=== PATIENT | male | born 1940 | race Caucasian/White ===

== ENCOUNTER → 2020-06-13 09:27 | Outpatient (BNVA) | payer MEDICARE, SELFPAY | PROVIDERS: PCP Internal Medicine Interventional Cardiology; Referring Provider Internal Medicine Interventional Cardiology; Visit Provider Internal Medicine Cardiovascular Disease | DX: I44.0 Atrioventricular block, first degree (principal); I44.4 Left anterior fascicular block; I10 Essential (primary) hypertension; C91.10 Chronic lymphocytic leukemia of B-cell type not having achieved remission | CPT/HCPCS: 99214 ==

== ENCOUNTER → 2020-10-17 08:36 | Outpatient (BNVA) | payer MEDICARE, SELFPAY | PROVIDERS: PCP Internal Medicine Interventional Cardiology; Visit Provider Internal Medicine Cardiovascular Disease | DX: I44.4 Left anterior fascicular block (principal); I44.0 Atrioventricular block, first degree; I10 Essential (primary) hypertension | CPT/HCPCS: 93005; 99212 ==

== ENCOUNTER 2021-02-15 13:45 | Outpatient (REF) | payer MEDICARE, SELFPAY ==
--- NOTE | ~2021-02-15 | US_ITS ---
EXAMINATION: US RETROPERITONEAL LIMITED (RENAL ONLY) CLINICAL INFORMATION: Worsening renal function. COMPARISON: Previous renal ultrasound 02/10/[address] of the abdomen and pelvis February 2020 TECHNIQUE: Grayscale and color imaging of the kidneys FINDINGS: RIGHT KIDNEY: 11.9 x 5.8 x 5.4 cm (SAG x AP x TRV). The kidney is normal in size, contour, and echogenicity. There is renal cortical thinning. No calculi or focal parenchymal lesions. No hydronephrosis. LEFT KIDNEY: 12.7 x 4.9 x 4.9 cm (SAG x AP x TRV). The kidney is normal in size, contour, and echogenicity. There is renal cortical thinning. There are 2 cysts measuring 1.4 x 0.9 x 1.1 cm and 0.9 x 0.7 x 0.9 cm in the lower pole. No calculi. No hydronephrosis. The spleen is enlarged. The spleen measures 21 cm in length. US/US renal BI IMPRESSION: Bilateral renal cortical thinning. No hydronephrosis. Small left renal cysts. Enlarged spleen.
== END 2021-02-15 13:46 | disposition home or self-care (01) ==
LOC: HO.US 13:45
PROVIDERS: Visit Provider Internal Medicine
DX: N17.9 Acute kidney failure, unspecified (principal)
CPT/HCPCS: 76775

== ENCOUNTER 2021-02-17 14:05 | Inpatient (IN) | payer MEDICARE, SELFPAY ==
[2021-02-17 14:32] VITALS: BP 114/43; PULSE 54; RESP 16; TEMP 36.6; O2SAT 97; BMI 20.7
--- NOTE | 2021-02-17 15:46 | ED.MALEGU ---
HPI - Male Genitourinary General Chief complaint: Urogenital-Male Stated complaint: urinary retention, worsening renal function Time Seen by Provider: 02/17/21 15:43 Source: patient and other (Dr. Hickman) Mode of arrival: ambulatory Limitations: no limitations History of Present Illness HPI Narrative: 80-year-old male with history of CLL, recently started on ibrutinib about a week ago, now with worsening renal function. the patient was seen today by his senior cobol developer, Dr. Hickman and the patient was sent to the emergency department for urinary retention and worsening renal function. Information below is obtained from 's oncology progress note done today. Serial creatinine: 11/06: 1.50. 01/24 and 02/08 : 1.93. 02/15: 2.3. 7/: 2.17. On 02/15 he was straight cathed with 1 L of urine. Renal ultrasound from 02/15: Bilateral renal cortical thinning. No hydronephrosis. Small left renal cysts. Enlarged spleen. Today his post void residual was 999. He could have underlying enlarged prostate causing urinary retention. Worsening renal function: Could be prerenal, renal versus post renal. PLAN: Will place a Bashir catheter. He will be referred to the emergency room to be admitted for further evaluation. He will have a renal consult. Urology will be consulted. I discussed the case with the ER physician who has graciously accepted him. The patient told me that his symptoms started approximately 2 weeks prior. He states that he noted that his urinary stream was weak and that he was not emptying his bladder. The symptoms started prior to the patient's starting his new biologic agent, ibrutinib. he denied abdominal pain, dysuria. He states he has had increased fatigue. He states he has been feeling colder than usual. He states that he has been sleeping more than usual as well. Related Data Home Medications Medication Instructions Recorded Confirmed allopurinol 300 mg PO BID 06/20/20 06/20/20 atorvastatin 40 mg PO DAILY 06/20/20 06/20/20 cholecalciferol (vitamin D3) 50 mcg PO DAILY 06/20/20 06/20/20 [Vitamin D3] ferrous sulfate 325 mg PO DAILY 06/20/20 06/20/20 insulin aspart U-100 [Novolog 1 sliding scale dose SUBCUT 06/20/20 06/20/20 U-100 Insulin aspart] USEASDIRECTD levothyroxine 15 mcg PO DAILY 06/20/20 06/20/20 omeprazole 20 mg PO DAILY 06/20/20 06/20/20 valsartan 320 mg PO DAILY 06/20/20 06/20/20 Previous Rx's Medication Instructions Recorded Imbruvica 420 mg PO DAILY #90 cap 01/30/21 Allergies Allergy/AdvReac Type Severity Reaction Status Date / Time indomethacin [INDOMETHACIN] Allergy Unknown BLOODY Verified 06/13/20 10:17 STOOLS- TOLD NEVER TO TAKE Review of Systems Review of Systems: Yes all other systems are reviewed and are negative [facility] Past Medical History [facility] Narrative: Social history: He denies tobacco, alcohol and drug use. Medical History Chronic renal insufficiency CLL (chronic lymphocytic leukemia) Diabetes mellitus First degree AV block GERD (gastroesophageal reflux disease) Gout Hyperlipidemia Hypertension Hypothyroid Left anterior fascicular block Pulmonary nodule Skin cancer Thyroid cancer Surgical History H/O thyroidectomy History of knee replacement procedure of left knee (~1994) History of rickets Family History Family History Father No problems noted. Mother Breast cancer DVT (deep venous thrombosis) Brother Intestinal cancer Sister Breast cancer Sister Breast cancer Social History Social History Alcohol intake: never Patient Tobacco Use Status: Never used Tobacco Advance Directives: Yes Advance Directives Information Provided: Yes Advance Directives on File: No Physical Exam Vital Signs: Vital Signs: Last Vital Signs Temp 97.9 F 02/17/21 14:32 Pulse 54 02/17/21 14:32 Resp 16 02/17/21 14:32 BP 114/43 L 02/17/21 14:32 Pulse Ox 97 02/17/21 14:32 Body Mass Index 20.7 Const: Other: Very pleasant and cooperative male, he does not appear to be in distress. HENMT: Head: Yes normal to inspection, Yes normocephalic and Yes atraumatic Ears: external ears normal General nose exam: Normal external nose present Face and sinus: Yes normal facial exam Mouth: Normal oral and palatal mucosa present Throat: Yes posterior oropharynx normal Eyes: Periorbital: periorbital findings normal Eyelids: Yes eyelids normal Conjunctivae: conjunctivae normal Sclerae: sclerae normal Corneas: corneas normal Pupils: Equal, round and reactive pupils present Direct Ophthalmoscopy: normal light reflex Neck: Neck: Yes full ROM, Yes no lymphadenopathy, Yes no meningeal signs, Yes trachea midline and Yes supple Chest: Chest palpation & inspection: normal inspection of the chest and normal palpation of entire chest wall Resp: Effort & Inspection: normal respiratory effort and able to speak in complete sentences Auscultation: clear to auscultation bilaterally Cardio: Rate: regular rate Rhythm: regular rhythm Heart sounds: S1 normal heart sound present, S2 normal heart sound present and no murmurs GI: Inspection: Yes normal to inspection Palpation (GI): Soft to palpation, nontender, no guarding, not rigid and No hepatosplenomegaly present : General: Yes no CVA tenderness Back/Spine/Pelvis: Back: no CVA tenderness Cervical Spine: normal cervical lordosis Thoracic/Lumbar Spine: thoracic and lumbar spine normal to inspection Skin: Lesions: no lesions Rashes: no rashes Wounds: no wounds Neuro: General: no meningeal signs Cranial nerves: Yes CN's II-XII intact bilaterally and Yes Equal, round and reactive pupils present Cognition (Neuro): normal cognition Motor exam (neuro): 5/5 motor strength present throughout Extrem: General: Yes normal to inspection and Yes full ROM Psych: Appearance: well kempt Mental Status: mental status grossly normal Speech and movement: Normal speech and movement present Affect: normal affect Attitude: cooperative Thought process: Normal thought process present Thought content: Normal thought content present Course Course Course Narrative: 80-year-old male with a history of CLL who was referred to the emergency department by his senior cobol developer, Dr. Hickman for urinary retention and worsening renal failure. The patient's symptoms started at least 3 days prior to the patien starting the newbiologic agent for his CLL. Patient's laboratory evaluation did reveal an elevated creatinine of 2.17 above his baseline of 1.50 hi 11/06/2020. The patient did have urinary retention and he had a Bashir catheter placed in the senior cobol developer's office. I will check a urinalysis on the patient's urine. The patient will need to be admitted for further evaluation, urology and nephrology consult. I will discuss the patient's presentation with the covering hospitalist. Discharge Plan Discharge Prescriptions: No Action atorvastatin 40 mg Tablet 40 mg PO DAILY RF: 0 ferrous sulfate 325 mg (65 mg iron) Tablet 325 mg PO DAILY RF: 0 valsartan 320 mg Tablet 320 mg PO DAILY RF: 0 allopurinol 300 mg Tablet 300 mg PO BID RF: 0 omeprazole 20 mg Tablet,Delayed Release (Dr/Ec) 20 mg PO DAILY RF: 0 cholecalciferol (vitamin D3) [Vitamin D3] 50 mcg (2,000 unit) Tablet 50 mcg PO DAILY RF: 0 levothyroxine 13 mcg/mL Solution 15 mcg PO DAILY RF: 0 insulin aspart U-100 [Novolog U-100 Insulin aspart] 100 unit/mL Solution 1 sliding scale dose SUBCUT USEASDIRECTD RF: 0 Imbruvica 140 mg Capsule 420 mg PO DAILY Qty: 90 RF: 3
[2021-02-17 17:10] LABS: Glucose Urine UA >=1000 MG/DL (NEG); Leukocyte Esterase Urine NEG (NEG); Nitrite Urine NEG (NEG); PH 5.5 (5.0-8.0); Specific Gravity - Urine 1.015 (1.005-1.025); Urine Blood 2+ (NEG); Urine Ketones NEG (NEG); Urine Protein NEG (NEG-TRACE)
[2021-02-17 17:11] LABS: Appearance Urine CLEAR; Color Urine YELLOW
[2021-02-17 17:20] LABS: Mucus Urine TRACE /LPF; WBC Urine 0-2 /HPF (0-4)
--- NOTE | 2021-02-17 18:29 | PHA.MEDREC ---
Pharmacy Consult ? Medication Reconciliation Pharmacy has completed the medication reconciliation.
[2021-02-17 18:35] VITALS: BP 108/42; PULSE 52; RESP 18; TEMP 36.4; O2SAT 97
[2021-02-17 18:50] LABS: Hematocrit 26.8 % (42-52); Hemoglobin 8.3 g/dl (14.0-18.0); Mean Corpuscular Hemoglobin 32.7 pg (27.0-33.0); Mean Corpuscular Volume 105.5 fL (80-98); Red Blood Count 2.54 X10*6/uL (4.60-5.80); Red Cell Distribution Width 13.2 % (11.0-16.0)
[2021-02-17 18:53] LABS: Platelet Count 57 X10*3/uL (160-400); WBC ABN SCTR FOR CBC 1
--- NOTE | 2021-02-17 19:22 | PC.NURSE ---
nurse to nurse report given to Jeff WALTON
[2021-02-17 19:24] LABS: Anion Gap 13 (12-20); Blood Urea Nitrogen 49 mg/dL (9-16); Calcium 8.5 mg/dL (8.4-10.2); Carbon Dioxide 17 mmol/L (22-29); Chloride 115 mmol/L (96-108); Estimated Glomerular Filt Rate 33; Glucose Random 157 mg/dL (60-115); Potassium 5.2 mmol/L (3.3-5.1); Sodium 140 mmol/L (135-145)
[2021-02-17 19:44] VITALS: BP 128/53; PULSE 54; RESP 17; TEMP 36.1; O2SAT 97
[2021-02-17 19:53] LABS: White Blood Count 88.1 X10*3/uL (4.8-10.8)
[2021-02-17 20:02] LABS: Band Neutrophils Percent 0 % (3-5); Lymphocytes Absolute Manual 87.2 X10*3/uL (0.6-4.8); Lymphocytes Percent Manual 99 % (20-40); Neutrophils Absolute Manual 0.9 X10*3/uL (2.2-7.9); Neutrophils Percent Manual 1 % (45-73)
[2021-02-17 20:04] LABS: Macrocytosis 1+ (5-14) /OIF; Ovalocytes 2+ (15-30) /OIF; Platelet Estimate DECREASED (NORMAL); Platelet Morphology Comment NORMAL; RBC Morphology NOTED; Stomatocytes 1+ (5-14) /OIF
[2021-02-17 20:05] LABS: Smudge Cells PRESENT
--- NOTE | 2021-02-17 20:06 | HP_ITS ---
DATE OF SERVICE: 02/17/2021 CHIEF COMPLAINT: Urinary retention and generalized weakness. HISTORY OF PRESENTING ILLNESS: This is a very pleasant 80-year-old gentleman with history of CLL, diagnosed in 2016, currently being followed at [facility]cology Clinic. Today, the patient went for a routine visit where he complained of generalized weakness and also complained of incomplete emptying of the bladder for the last 2-1/2 weeks. He denies any associated urinary burning, urgency, or frequency. Therefore, Bashir catheter was placed in Oncology Clinic and 1 L of fluid was drained. The patient was noted to have worsening renal function, although creatinine did improve from February 15 of 2.3 to 2.17 today. Therefore, patient was referred to [facility] for further evaluation and treatment of urinary retention with worsening renal function. The patient denies any prior history of chronic kidney disease, although seems to have chronic kidney disease stage 3 from last year. At present, patient denies any fever or chills. He has been started on ibrutinib 9 days ago for CLL. Otherwise, he has been on losartan for more than 20 years. He denies any associated nausea, vomiting, diarrhea. PAST MEDICAL HISTORY: Significant for, 1. Chronic lymphocytic leukemia. 2. History of diabetes mellitus. 3. History of GERD. 4. History of gout. 5. History of hyperlipidemia. 6. History of hypertension. 7. History of hypothyroidism. 8. History of pulmonary nodule. 9. History of left anterior fascicular block. 10. History of first-degree AV block. 11. History of skin cancer. 12. History of thyroid cancer. PAST SURGICAL HISTORY: 1. He is status post thyroidectomy. 2. Status post left knee replacement surgery. FAMILY HISTORY: Father is . Mother is , she had breast cancer and DVT. Sister has breast cancer and 1 brother has intestinal cancer. SOCIAL HISTORY: The patient lives with . Denies history of smoking or alcohol use. He walks without assistive device, but lately he has started using cane due to weakness. 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 CVS: He denies any chest pain or palpitation. RESPIRATORY: He denies any cough, sputum production, or shortness of breath. GENERAL: He complains of generalized weakness, tiredness, previously would not get tired walking 100 feet, now up to 10 feet feels tired. ALLERGIES: HE IS ALLERGIC TO INDOMETHACIN THAT CAUSES BLOODY STOOL. HOME MEDICATIONS: He is on allopurinol 300 b.i.d., Lipitor 40 mg at bedtime, vitamin D3 of 50 mcg daily, ferrous sulfate 325 b.i.d., Imbruvica 420 mg capsule daily, NovoLog insulin twice daily, levothyroxine 175 mcg daily, meclizine 12.5 mg at bedtime as needed, metoprolol 12.5 daily, omeprazole 20 b.i.d., and valsartan 160 daily. PHYSICAL EXAMINATION: GENERAL: The patient is resting comfortably, does not appear to be in acute distress. VITAL SIGNS: BP 108/42, pulse of 52, respiratory rate 18, temperature of 97.5, O2 saturation 97 on room air. HEENT: Anicteric sclerae. NECK: Supple. No increased JVD. LUNGS: Clear to auscultation bilaterally. HEART: Regular rate and rhythm with a systolic murmur. ABDOMEN: Obese, soft, nontender. Bowel sounds are audible. EXTREMITIES: He has bilateral pitting edema to both legs. NEUROLOGIC: Nonfocal. PSYCH: Appropriate affect. LABORATORY DATA: Sodium 138, BUN 56, creatinine of 2.17, random glucose 136. WBC 99.4, hematocrit of 29, MCV 105, and a platelet count of 64,000. ASSESSMENT AND PLAN: 80-year-old gentleman with history of chronic lymphocytic leukemia, recently started on ibrutinib, presented to [facility] from Oncology due to inability to empty bladder for 2-1/2 weeks and worsening renal function. 1. Acute on chronic kidney disease stage 3. The patient will be admitted to medical floor. We will continue Bashir catheter. We will hold off on IV fluids since the patient seems to have fluid overload with worsening leg swelling. We will avoid nephrotoxins. We will decrease dose of allopurinol to 100 mg daily. Obtain Urology as well as renal consult. Follow BMP at a.m. Question patient has benign prostate hypertrophy. A renal ultrasound did not show hydronephrosis or obstructive calculi. The patient noted to have bilateral renal cortical thinning. 2. History of hypertension. Continue home medications. BP is soft. We will follow blood pressure closely. 3. Diabetes mellitus. Recommend diabetic diet. Home insulin. Follow blood sugars closely. 4. History of hypothyroidism. Continue levothyroxine. 5. Chronic lymphocytic leukemia. We will continue Imbruvica. The patient has been asked to bring the medication from home. We will continue allopurinol renally dosed. The patient has thrombocytopenia with multiple bruises and petechia. We will continue to follow CBC closely. 6. Hyperlipidemia. Continue Lipitor. 7. Code status, the patient wishes to be DNR. MD ANIKET Cleaning/RAMON / [id number]
[2021-02-17 20:33] LABS: Glucose, Whole Blood 141 mg/dL (60-115)
[2021-02-17] MEDS: Enoxaparin Sodium 30 MG/0.3 ML SYRINGE SUBCUT (20:52)
[2021-02-17] MEDS: 0.9 % Sodium Chloride Flush 3 ML SYRINGE IVFLUSH (23:36)
[2021-02-17 23:38] VITALS: BP 107/49; PULSE 57; RESP 18; TEMP 36.4; O2SAT 96
[2021-02-18 03:58] VITALS: BP 124/52; PULSE 61; RESP 18; TEMP 36.5; O2SAT 96
[2021-02-18 06:53] LABS: Hematocrit 27.2 % (42-52); Hemoglobin 8.5 g/dl (14.0-18.0); Mean Corpuscular HGB Conc 31.3 g/dl (31.0-36.0); Mean Corpuscular Hemoglobin 32.9 pg (27.0-33.0); Mean Corpuscular Volume 105.4 fL (80-98); Mean Platelet Volume 12.6 fL (9.4-12.4); Red Blood Count 2.58 X10*6/uL (4.60-5.80); Red Cell Distribution Width 13.3 % (11.0-16.0)
[2021-02-18 07:16] LABS: Platelet Count 62 X10*3/uL (160-400)
[2021-02-18 07:17] LABS: White Blood Count 81.5 X10*3/uL (4.8-10.8)
[2021-02-18 07:18] VITALS: BP 128/52; PULSE 55; TEMP 35.6; O2SAT 97
[2021-02-18 07:21] LABS: Anion Gap 14 (12-20); Blood Urea Nitrogen 45 mg/dL (9-16); Calcium 8.4 mg/dL (8.4-10.2); Carbon Dioxide 16 mmol/L (22-29); Chloride 114 mmol/L (96-108); Creatinine Clr Calc Pharmacy 32.5; Estimated Glomerular Filt Rate 43; Glucose Random 120 mg/dL (60-115); Potassium 4.5 mmol/L (3.3-5.1); Sodium 139 mmol/L (135-145)
[2021-02-18 07:41] LABS: Glucose, Whole Blood 114 mg/dL (60-115)
[2021-02-18 08:00] VITALS: RESP 20
--- NOTE | 2021-02-18 09:16 | MHC.CM.PN ---
IMM 02/18/21 MALE 80 DX URINE RETENTION LIVES WITH FAMILY. HE USES A CANE PRN BUT; HE IS INDEPENDENT WITH ADLS AND DRIVES. [facility] HOME NO SERVICES SELF TRANSPORT. COPY OF HCP REQUESTED. CM WILL FOLLOW TO ASSESS FOR A CHANGE IN DISCHARGE NEEDS.
[2021-02-18] MEDS: 0.9 % Sodium Chloride Flush 3 ML SYRINGE IVFLUSH (10:06)
[2021-02-18] MEDS: allopurinoL 100 MG TABLET PO (10:06)
[2021-02-18 11:19] LABS: Glucose, Whole Blood 148 mg/dL (60-115)
[2021-02-18 12:00] VITALS: BP 108/47; PULSE 52; RESP 18; TEMP 36.4; O2SAT 95
--- NOTE | 2021-02-18 12:42 | PM.UROCN ---
History of Present Illness Consult details Consult date: 02/18/21 Narrative: Nathan is a pleasant male. Admitted via oncology clinic yesterday Had been found to have urinary retention with 1 L in his bladder. Bashir catheter placed. Initial creatinine 2.4 suggestive of acute on chronic renal insult. Baseline creatinine 1.5. With catheter creatinine is fallen from 2.4-1.6 in 48 hours. Using states that he has had difficulty with urination for approximately 14 days prior to admission. Has noticed stream has become much weaker. He felt he was not completely emptying. Has not been on prostate medications previously or diagnosed with prostate condition. Baseline medical condition includes CLL with insulin-dependent diabetes. Of note urinalysis has showed glucose of 1000. point of care glucose admission was approximately 150. Would suggest initiation of combination therapy with finasteride and alpha-denise. Catheter should stay for 7 days to allow full resolution of renal insult. Can be seen in the office for voiding trial. Review of Systems Constitutional: Constitutional: Denies chills and Denies fever(s) Cardiovascular: Cardiovascular: Reports no additional cardiovascular complaints and Denies syncope Respiratory: Respiratory: Denies cough Gastrointestinal: Gastrointestinal: Denies abdominal pain and Denies heartburn Genitourinary: Genitourinary: Reports as per HPI and Denies change in libido Neurologic: Denies syncope Psychiatric: Psychiatric: Denies change in libido Endocrine: Endocrine: Denies change in libido [facility] Past Medical History Medical History (Updated 02/18/21 @ 12:40 by Olivier Jenkins MD) Chronic renal insufficiency CLL (chronic lymphocytic leukemia) Diabetes mellitus First degree AV block GERD (gastroesophageal reflux disease) Gout Hyperlipidemia Hypertension Hypothyroid Left anterior fascicular block Pulmonary nodule Skin cancer Thyroid cancer Family History Family History Father No problems noted. Mother Breast cancer DVT (deep venous thrombosis) Brother Intestinal cancer Sister Breast cancer Sister Breast cancer Surgical History Surgical History H/O thyroidectomy History of knee replacement procedure of left knee (~1994) History of rickets Social History Social History Household Members: Spouse and Children Housing: House Alcohol intake: never Patient Tobacco Use Status: Never used Tobacco Use of substances other than those prescribed or required for medical reasons: No Currently Displaying Signs/Symptoms of Drug Intoxication Withdrawal: No Have you been hit, kicked, punched, or otherwise hurt by someone within the past year? If so, by whom?: No Do you feel safe in your current relationship?: Yes Is there a partner from a previous relationship who is making you feel unsafe now?: No Are you made to feel afraid or neglected: No Advance Directives: Yes Advance Directives Information Provided: Yes Advance Directives on File: No Advance Directives Date on File: 02/17/21 Do you have thoughts of harming others: None Do you have a plan to hurt others: No Plan Recently lost weight without trying: No How much weight loss: Not applicable Eating poorly because of decreased appetite: No Nutrition screen score: 0 Nutrition Risks: No Nutritional Risk Poor oral hygiene: No service: Yes Current occupational status: retired Meds Allergies Allergy/AdvReac Type Severity Reaction Status Date / Time indomethacin [INDOMETHACIN] Allergy Unknown BLOODY Verified 02/18/21 11:19 STOOLS- TOLD NEVER TO TAKE Active Medications: Current Medications Generic Name Dose Route Start Last Admin Trade Name Freq PRN Reason Stop Dose Admin Acetaminophen 650 mg 02/17/21 19:22 Acetaminophen 325 Mg Tablet PO Q6H PRN Pain, Mild (Pain Scale 1-3) Allopurinol 100 mg 02/18/21 09:00 02/18/21 10:06 Allopurinol 100 Mg Tablet PO 100 mg DAILY LOU Administration Docusate Sodium 100 mg 02/17/21 19:22 Docusate Sodium 100 Mg Capsule PO DAILY PRN Constipation Enoxaparin Sodium 30 mg 02/17/21 19:30 02/17/21 20:52 Enoxaparin Sodium 30 Mg/0.3 Ml Syringe SUBCUT 30 mg Q24H LOU Administration Insulin Human Lispro 0 unit 02/17/21 21:00 02/18/21 11:20 Insulin Lispro 100 Unit/Ml 3 Ml Vial SUBCUT Not Given QIDACHS [facility] Protocol Ondansetron HCl 4 mg 02/17/21 19:22 Ondansetron Hcl 4 Mg/2 Ml Vial IVPUSH Q8H PRN Nausea and Vomiting Pharmacy Consult 1 each 02/17/21 17:37 Consult Rx Perform Med Rec MISCELLANE ONCE PRN Consult order Sodium Chloride 3 ml 02/18/21 00:00 02/18/21 10:06 0.9 % Sodium Chloride Flush 3 Ml Syringe IVFLUSH 3 ml QSHIFT [facility] Administration Tamsulosin HCl 0.4 mg 02/18/21 21:00 Tamsulosin Hcl 0.4 Mg Capsule PO BEDTIME [facility] Home Medications Medication Instructions Recorded Confirmed Last Taken Type allopurinol 300 mg PO DAILY 06/20/20 02/17/21 Unknown History cholecalciferol (vitamin D3) 50 mcg PO DAILY 06/20/20 02/17/21 Unknown History [Vitamin D3] ferrous sulfate 325 mg PO BID 06/20/20 02/17/21 Unknown History omeprazole 20 mg PO BID 06/20/20 02/17/21 Unknown History atorvastatin 40 mg PO BEDTIME 02/17/21 02/17/21 Unknown History empagliflozin 12.5 mg PO DAILY 02/17/21 02/17/21 Unknown History insulin aspart U-100 [Novolog 5 unit SUBCUT DAILY@1200 02/17/21 02/17/21 Unknown History U-100 Insulin aspart] insulin aspart U-100 [Novolog 11 unit SUBCUT BID@0800,1700 02/17/21 02/17/21 Unknown History U-100 Insulin aspart] insulin glargine [Lantus U-100 11 unit SUBCUT BID 02/17/21 02/17/21 Unknown History Insulin] levothyroxine 175 mcg PO DAILY 02/17/21 02/17/21 Unknown History meclizine 12.5 mg PO BEDTIME PRN 02/17/21 02/17/21 Unknown History metoprolol succinate [Toprol XL] 12.5 mg PO DAILY 02/17/21 02/17/21 Unknown History valsartan 160 mg PO DAILY 02/17/21 02/17/21 Unknown History Physical Exam Vital Signs: Vital Signs: Last Vital Signs Temp 97.5 F 02/18/21 12:00 Pulse 52 02/18/21 12:00 Resp 18 02/18/21 12:00 BP 108/47 L 02/18/21 12:00 Pulse Ox 95 02/18/21 12:00 Body Mass Index 20.7 Const: General: cooperative, healthy appearing, comfortable and no acute distress Orientation/consciousness: patient oriented x3 HENMT: Face and sinus: Yes normal facial exam Mouth: moist mucous membranes Neck: Neck: Yes normal visual inspection, Yes full ROM and Yes trachea midline Chest: Chest palpation & inspection: normal inspection of the chest Resp: Effort & Inspection: normal respiratory effort, able to speak in complete sentences and no respiratory distress GI: Inspection: Yes normal to inspection Back/Spine/Pelvis: Cervical Spine: normal cervical lordosis Thoracic/Lumbar Spine: thoracic and lumbar spine normal to inspection Skin: General skin exam: no rashes or lesions noted Neuro: General: patient oriented x3, gait normal, tone normal and moves all extremities Extrem: General: Yes normal to inspection and Yes capillary refill normal Results Labs Result diagrams: 02/18/21 05:58 02/18/21 05:58 Labs: Abnormal lab results 02/17/21 02/17/21 02/17/21 Range/Units 17:01 18:42 18:42 WBC 88.1 H* (4.8-10.8) X10*3/uL RBC 2.54 L (4.60-5.80) X10*6/uL Hgb 8.3 L (14.0-18.0) g/dl Hct 26.8 L (42-52) % MCV 105.5 H (80-98) fL Plt Count 57 L (160-400) X10*3/uL MPV (9.4-12.4) fL Neutrophils % (Manual) 1 L (45-73) % Band Neutrophils % 0 L (3-5) % Lymphocytes % (Manual) 99 H (20-40) % Abs Neuts (Manual) 0.9 L (2.2-7.9) X10*3/uL Lymphocytes # (Manual) 87.2 H (0.6-4.8) X10*3/uL Potassium 5.2 H (3.3-5.1) mmol/L Chloride 115 H (96-108) mmol/L Carbon Dioxide 17 L (22-29) mmol/L BUN 49 H (9-16) mg/dL Creatinine 1.96 H (0.5-1.4) mg/dL POC Glucose (60-115) mg/dL Random Glucose 157 H (60-115) mg/dL Urine Glucose (UA) >=1000 H (NEG) MG/DL Urine Blood 2+ H (NEG) Urine RBC 10-14 H (0) /HPF 02/17/21 02/18/21 02/18/21 Range/Units 20:22 05:58 05:58 WBC 81.5 H* (4.8-10.8) X10*3/uL RBC 2.58 L (4.60-5.80) X10*6/uL Hgb 8.5 L (14.0-18.0) g/dl Hct 27.2 L (42-52) % MCV 105.4 H (80-98) fL Plt Count 62 L (160-400) X10*3/uL MPV 12.6 H (9.4-12.4) fL Neutrophils % (Manual) (45-73) % Band Neutrophils % (3-5) % Lymphocytes % (Manual) (20-40) % Abs Neuts (Manual) (2.2-7.9) X10*3/uL Lymphocytes # (Manual) (0.6-4.8) X10*3/uL Potassium (3.3-5.1) mmol/L Chloride 114 H (96-108) mmol/L Carbon Dioxide 16 L (22-29) mmol/L BUN 45 H (9-16) mg/dL Creatinine 1.57 H (0.5-1.4) mg/dL POC Glucose 141 H (60-115) mg/dL Random Glucose 120 H (60-115) mg/dL Urine Glucose (UA) (NEG) MG/DL Urine Blood (NEG) Urine RBC (0) /HPF 02/18/21 Range/Units 11:05 WBC (4.8-10.8) X10*3/uL RBC (4.60-5.80) X10*6/uL Hgb (14.0-18.0) g/dl Hct (42-52) % MCV (80-98) fL Plt Count (160-400) X10*3/uL MPV (9.4-12.4) fL Neutrophils % (Manual) (45-73) % Band Neutrophils % (3-5) % Lymphocytes % (Manual) (20-40) % Abs Neuts (Manual) (2.2-7.9) X10*3/uL Lymphocytes # (Manual) (0.6-4.8) X10*3/uL Potassium (3.3-5.1) mmol/L Chloride (96-108) mmol/L Carbon Dioxide (22-29) mmol/L BUN (9-16) mg/dL Creatinine (0.5-1.4) mg/dL POC Glucose 148 H (60-115) mg/dL Random Glucose (60-115) mg/dL Urine Glucose (UA) (NEG) MG/DL Urine Blood (NEG) Urine RBC (0) /HPF Short CBC 02/17/21 02/18/21 Range/Units 18:42 05:58 WBC 88.1 H* 81.5 H* (4.8-10.8) X10*3/uL Hgb 8.3 L 8.5 L (14.0-18.0) g/dl Hct 26.8 L 27.2 L (42-52) % Plt Count 57 L 62 L (160-400) X10*3/uL BMP 02/17/21 02/18/21 18:42 05:58 Sodium 140 139 Potassium 5.2 H 4.5 Chloride 115 H 114 H Carbon Dioxide 17 L 16 L BUN 49 H 45 H Creatinine 1.96 H 1.57 H Calcium 8.5 8.4 Urine 02/17/21 Range/Units 17:01 Urine Color YELLOW Urine Appearance CLEAR Urine pH 5.5 (5.0-8.0) Ur Specific [place] 1.015 (1.005-1.025) Urine Protein NEG (NEG-TRACE) MG/DL Urine Glucose (UA) >=1000 H (NEG) MG/DL All other labs normal. Assessment and Plan (1) Nocturia more than twice per night: Status: Acute (2) Diabetes mellitus: Status: Acute (3) Urinary retention with incomplete bladder emptying: Status: Acute initiation of combination therapy with alpha-denise and finasteride Catheter should remain while stay in hospital. Can be seen in office late next week for voiding trial Procedures Date of Service Date of Service: 02/18/21
[2021-02-18] MEDS: Finasteride 5 MG TABLET PO (13:00)
--- NOTE | 2021-02-18 13:26 | PM.DS ---
DS: Providers Provider Date of Service: 02/18/21 <BREANNA Jefferson - Last Filed: 02/18/21 13:42> Date of admission: 02/17/21 17:35 <BREANNA Jefferson - Last Filed: 02/18/21 13:42> Primary care physician: Faraz Carrillo MD <BREANNA Jefferson - Last Filed: 02/18/21 13:42> Consults: 02/17/21 19:22 Consult to Urology Routine Consulting Provider: Olivier Jenkins Reason for consultation: urinary retention Has provider been notified: No <BREANNA Jefferson - Last Filed: 02/18/21 13:42> DS: Diagnosis Discharge Diagnosis (1) Acute kidney injury: Status: Acute <BREANNA Jefferson - Last Filed: 02/18/21 13:42> (2) Urinary retention with incomplete bladder emptying: Status: Acute <BREANNA Jefferson - Last Filed: 02/18/21 13:42> (3) Nocturia more than twice per night: Status: Acute <BREANNA Jefferson - Last Filed: 02/18/21 13:42> (4) Diabetes mellitus: Status: Acute <BREANNA Jefferson - Last Filed: 02/18/21 13:42> (5) Hypertension: Status: Acute <BREANNA Jefferson - Last Filed: 02/18/21 13:42> DS: Medications Discharge Medications Home Medications: Home Medications Medication Instructions Recorded Confirmed allopurinol 300 mg PO DAILY 06/20/20 02/17/21 cholecalciferol (vitamin D3) 50 mcg PO DAILY 06/20/20 02/17/21 [Vitamin D3] ferrous sulfate 325 mg PO BID 06/20/20 02/17/21 omeprazole 20 mg PO BID 06/20/20 02/17/21 atorvastatin 40 mg PO BEDTIME 02/17/21 02/17/21 empagliflozin 12.5 mg PO DAILY 02/17/21 02/17/21 insulin aspart U-100 [Novolog 5 unit SUBCUT DAILY@1200 02/17/21 02/17/21 U-100 Insulin aspart] insulin aspart U-100 [Novolog 11 unit SUBCUT BID@0800,1700 02/17/21 02/17/21 U-100 Insulin aspart] insulin glargine [Lantus U-100 11 unit SUBCUT BID 02/17/21 02/17/21 Insulin] levothyroxine 175 mcg PO DAILY 02/17/21 02/17/21 meclizine 12.5 mg PO BEDTIME PRN 02/17/21 02/17/21 metoprolol succinate [Toprol XL] 12.5 mg PO DAILY 02/17/21 02/17/21 valsartan 160 mg PO DAILY 02/17/21 02/17/21 Previous Rx's Medication Instructions Recorded Imbruvica 420 mg PO DAILY #90 cap 01/30/21 <BREANNA Jefferson - Last Filed: 02/18/21 13:42> DS: Summary Hospital Course Hospital Course: From H&P on day of admission This is a very pleasant 80-year-old gentleman with history of CLL, diagnosed in 2015, currently being [facility]. Today, the patient went for a routine visit where he complained of generalized weakness and also complained of incomplete emptying of the bladder for the last 2-1/2 weeks. He denies any associated urinary burning, urgency, or frequency. Therefore, Norris catheter was placed in [facility] and 1 L of fluid was drained. The patient was noted to have worsening renal function, although creatinine did improve from February 15 of 2.3 to 2.17 today. Therefore, patient was referred to [facility] for further evaluation and treatment of urinary retention with worsening renal function. The patient denies any prior history of chronic kidney disease, although seems to have chronic kidney disease stage 3 from last year. At present, patient denies any fever or chills. He has been started on ibrutinib 9 days ago for CLL. Otherwise, he has been on losartan for more than 20 years. He denies any associated nausea, vomiting, diarrhea. Hospital course by problem: CRISTOPHER on CKD 3. likely related to urinary retention. Creatinine has improved from 2.1-1.5 after Norris catheter was placed. Renal ultrasound showed no evidence of obstruction or hydronephrosis. valsartan was placed on hold and will be resumed at lower dose on discharge. Allopurinol was renally dosed but his normal home dose can be resumed now that renal function has improved. This was discussed with the pharmacy. Urinary retention with incomplete bladder emptying. Patient was seen and evaluated by Urology who recommended starting Proscar and Flomax. Patient should keep Norris catheter in place until follow-up with Urology next week for voiding trial. Hypertension. Dose of valsartan was decreased as blood pressure being on the lower side. Can be uptitrated as outpatient if needed. <BREANNA Jefferson Last Filed: 02/18/21 13:42> Time Spent with Patient Time attestation: Total time spent providing and/or coordinating discharge services: <BREANNA Jefferson Last Filed: 02/18/21 13:42> Discharge coordination time: Greater than 30 minutes <BREANNA Jefferson Last Filed: 02/18/21 13:42> Quality: Stroke Does the patient have a stroke diagnosis?: No <BREANNA Jefferson Last Filed: 02/18/21 13:42> Physical Exam Vital Signs: Vital Signs: Last Vital Signs Temp 97.5 F 02/18/21 12:00 Pulse 52 02/18/21 12:00 Resp 18 02/18/21 12:00 BP 108/47 L 02/18/21 12:00 Pulse Ox 95 02/18/21 12:00 Body Mass Index 20.7 <BREANNA Jefferson Last Filed: 02/18/21 13:42> Const: Nutritional Appearance: well nourished <BREANNA Jefferson Last Filed: 02/18/21 13:42> Orientation/consciousness: patient oriented x3 <BREANNA Jefferson Last Filed: 02/18/21 13:42> HENMT: Head: Yes normocephalic and Yes atraumatic <BREANNA Jefferson Last Filed: 02/18/21 13:42> Eyes: Sclerae: sclerae normal <BREANNA Jefferson Last Filed: 02/18/21 13:42> Resp: Effort & Inspection: normal respiratory effort and no respiratory distress <BREANNA Jefferson Last Filed: 02/18/21 13:42> Cardio: Rate: regular rate <BREANNA Jefferson Filed: 02/18/21 13:42> Rhythm: regular rhythm <BREANNA Jefferson - Last Filed: 02/18/21 13:42> GI: Palpation (GI): Soft to palpation and nontender <BREANNA Jefferson - Last Filed: 02/18/21 13:42> Neuro: General: patient oriented x3 <BREANNA Jefferson - Last Filed: 02/18/21 13:42> Cranial nerves: Yes CN's II-XII intact bilaterally and Yes Bilaterally intact EOM present <BREANNA Jefferson Last Filed: 02/18/21 13:42> DS: Data Data Completed and Pending Labs on day of discharge: Laboratory Results - last 24 hr 02/17/21 02/17/21 02/17/21 17:01 18:42 18:42 WBC 88.1 H* RBC 2.54 L Hgb 8.3 L Hct 26.8 L MCV 105.5 H MCH 32.7 MCHC 31.0 RDW 13.2 Plt Count 57 L MPV 12.0 Immature Gran % (Auto) Cancelled Neut % (Auto) Cancelled Lymph % (Auto) Cancelled [place] % (Auto) Cancelled Eos % (Auto) Cancelled Baso % (Auto) Cancelled Lymph # (Auto) Cancelled [place] # (Auto) Cancelled Eos # (Auto) Cancelled Baso # (Auto) Cancelled Abs Immat Gran (auto) Cancelled Absolute Neuts (auto) Cancelled Absolute Nucleated RBC 0.000 Nucleated RBC % (auto) 0.0 Neutrophils % (Manual) 1 L Band Neutrophils % 0 L Lymphocytes % (Manual) 99 H Abs Neuts (Manual) 0.9 L Lymphocytes # (Manual) 87.2 H Smudge Cells PRESENT Platelet Estimate DECREASED Plt Morphology Comment NORMAL RBC Morphology NOTED Macrocytosis 1+ (5-14) Ovalocytes 2+ (15-30) Stomatocytes 1+ (5-14) Hold Purple Top SEE NOTE Sodium Potassium Chloride Carbon Dioxide Anion Gap BUN Creatinine Estim Creat Clear Calc Estimated GFR POC Glucose Random Glucose Calcium Urine Color YELLOW Urine Appearance CLEAR Urine pH 5.5 Ur Specific [place] 1.015 Urine Protein NEG Urine Glucose (UA) >=1000 H Urine Ketones NEG Urine Blood 2+ H Urine Nitrite NEG Ur Leukocyte Esterase NEG Urine RBC 10-14 H Urine WBC 0-2 Ur Squamous Epith Cells NONE Urine Bacteria NONE Urine Mucus TRACE 02/17/21 02/17/21 02/18/21 18:42 20:22 05:58 WBC 81.5 H* RBC 2.58 L Hgb 8.5 L Hct 27.2 L MCV 105.4 H MCH 32.9 MCHC 31.3 RDW 13.3 Plt Count 62 L MPV 12.6 H Immature Gran % (Auto) Neut % (Auto) Lymph % (Auto) [place] % (Auto) Eos % (Auto) Baso % (Auto) Lymph # (Auto) [place] # (Auto) Eos # (Auto) Baso # (Auto) Abs Immat Gran (auto) Absolute Neuts (auto) Absolute Nucleated RBC 0.000 Nucleated RBC % (auto) 0.0 Neutrophils % (Manual) Band Neutrophils % Lymphocytes % (Manual) Abs Neuts (Manual) Lymphocytes # (Manual) Smudge Cells Platelet Estimate Plt Morphology Comment RBC Morphology Macrocytosis Ovalocytes Stomatocytes Hold Purple Top Sodium 140 Potassium 5.2 H Chloride 115 H Carbon Dioxide 17 L Anion Gap 13 BUN 49 H Creatinine 1.96 H Estim Creat Clear Calc 26.0 Estimated GFR 33 POC Glucose 141 H Random Glucose 157 H Calcium 8.5 Urine Color Urine Appearance Urine pH Ur Specific [place] Urine Protein Urine Glucose (UA) Urine Ketones Urine Blood Urine Nitrite Ur Leukocyte Esterase Urine RBC Urine WBC Ur Squamous Epith Cells Urine Bacteria Urine Mucus 02/18/21 02/18/21 02/18/21 05:58 07:17 11:05 WBC RBC Hgb Hct MCV MCH MCHC RDW Plt Count MPV Immature Gran % (Auto) Neut % (Auto) Lymph % (Auto) [place] % (Auto) Eos % (Auto) Baso % (Auto) Lymph # (Auto) [place] # (Auto) Eos # (Auto) Baso # (Auto) Abs Immat Gran (auto) Absolute Neuts (auto) Absolute Nucleated RBC Nucleated RBC % (auto) Neutrophils % (Manual) Band Neutrophils % Lymphocytes % (Manual) Abs Neuts (Manual) Lymphocytes # (Manual) Smudge Cells Platelet Estimate Plt Morphology Comment RBC Morphology Macrocytosis Ovalocytes Stomatocytes Hold Purple Top Sodium 139 Potassium 4.5 Chloride 114 H Carbon Dioxide 16 L Anion Gap 14 BUN 45 H Creatinine 1.57 H Estim Creat Clear Calc 32.5 Estimated GFR 43 POC Glucose 114 148 H Random Glucose 120 H Calcium 8.4 Urine Color Urine Appearance Urine pH Ur Specific [place] Urine Protein Urine Glucose (UA) Urine Ketones Urine Blood Urine Nitrite Ur Leukocyte Esterase Urine RBC Urine WBC Ur Squamous Epith Cells Urine Bacteria Urine Mucus <BREANNA Jefferson - Last Filed: 02/18/21 13:42> Discharge Plan Discharge Patient Disposition: Home, Self-Care <BREANNA Jefferson - Last Filed: 02/18/21 13:42> Discharge Diagnosis: Urinary retention with incomplete bladder emptying CRISTOPHER DM <BREANNA Jefferson - Last Filed: 02/18/21 13:42> Urinary retention with incomplete bladder emptying CRISTOPHER DM <Len Avalos MD - Last Filed: 02/18/21 14:59> Referrals: Olivier Jenkins MD [Physician] - 1 Week Faraz Carrillo MD [Primary Care Provider] - 1 Week <BREANNA Jefferson - Last Filed: 02/18/21 13:42> Discharge Medications: New tamsulosin 0.4 mg Capsule 0.4 mg PO BEDTIME 30 Days Qty: 30 RF: 0 valsartan 80 mg tablet 80 mg PO DAILY 30 Days Qty: 30 RF: 0 finasteride [Proscar] 5 mg Tablet 5 mg PO DAILY 30 Days Qty: 30 RF: 0 Continued levothyroxine 175 mcg Tablet 175 mcg PO DAILY RF: 0 atorvastatin 80 mg Tablet 40 mg PO BEDTIME RF: 0 Lantus U-100 Insulin 100 unit/mL Solution 11 unit SUBCUT BID RF: 0 meclizine 12.5 mg Tablet 12.5 mg PO BEDTIME PRN (Reason: Dizziness) RF: 0 insulin aspart U-100 [Novolog U-100 Insulin aspart] 100 unit/mL Solution 11 unit SUBCUT BID@0800,1700 RF: 0 insulin aspart U-100 [Novolog U-100 Insulin aspart] 100 unit/mL Solution 5 unit SUBCUT DAILY@1200 RF: 0 metoprolol succinate [Toprol XL] 25 mg Tablet Extended Release 24 Hr 12.5 mg PO DAILY RF: 0 empagliflozin 25 mg Tablet 12.5 mg PO DAILY RF: 0 ferrous sulfate 325 mg (65 mg iron) Tablet 325 mg PO BID RF: 0 allopurinol 300 mg Tablet 300 mg PO DAILY RF: 0 omeprazole 20 mg Tablet,Delayed Release (Dr/Ec) 20 mg PO BID RF: 0 cholecalciferol (vitamin D3) [Vitamin D3] 50 mcg (2,000 unit) Tablet 50 mcg PO DAILY RF: 0 Imbruvica 140 mg Capsule 420 mg PO DAILY Qty: 90 RF: 3 Discontinued valsartan 160 mg Tablet 160 mg PO DAILY RF: 0 <BREANNA Jefferson - Last Filed: 02/18/21 13:42> Discharge Orders: Discharge Order (Routine); Ordered 02/18/21 Ordered By: Brenda Mack <BREANNA Jefferson - Last Filed: 02/18/21 13:42> Activity on Discharge: As tolerated <BREANNA Jefferson - Last Filed: 02/18/21 13:42> As tolerated <Len Avalos MD - Last Filed: 02/18/21 14:59> Stand Alone Forms: Patient Portal Discharge page <BREANNA Jefferson - Last Filed: 02/18/21 13:42> Care Plan Goals: see below <BREANNA eJfferson - Last Filed: 02/18/21 13:42> Health Concerns: Urinary retention with incomplete bladder emptying Acute kidney injury HTN DM <BREANNA Jefferson - Last Filed: 02/18/21 13:42> Plan of Treatment: You have been started on new medication to help with urination. You should keep norris catheter in place until you follow up with the urologist next week. Your blood pressure medication has been adjusted. please take as prescribed Continue to take all other medications as previous prescribed <BREANNA Jefferson - Last Filed: 02/18/21 13:42> Assessment: see discharge summary I saw and examined the patient and discussed, management and disposition and discharge plan with BREANNA and I agree with Discharge planlatisha as written by BREANNA, except as otherwise stated <BREANNA Jefferson - Last Filed: 02/18/21 13:42>
--- NOTE | 2021-02-18 14:08 | MHC.CM.PN ---
IMM 02/18/21 Male 80 DX Urinary retention and CRISTOPHER. He is discharged to home no services. Patient will self transport to home. His car is in visitors lot.
== END 2021-02-18 15:40 | disposition home or self-care (01) | DRG 696 ==
LOC: HO.ED 16:18 → HO.S3 18:00
PROVIDERS: Admitting Provider Physician Assistant Medical; Emergency Provider Emergency Medicine Emergency Medical Services; PCP Internal Medicine Interventional Cardiology; Visit Provider Internal Medicine
DX: R33.9 Retention of urine, unspecified (principal); C91.10 Chronic lymphocytic leukemia of B-cell type not having achieved remission; N17.9 Acute kidney failure, unspecified; K21.9 Gastro-esophageal reflux disease without esophagitis; E78.5 Hyperlipidemia, unspecified; E03.9 Hypothyroidism, unspecified; I12.9 Hypertensive chronic kidney disease with stage 1 through stage 4 chronic kidney disease, or unspecified chronic kidney disease; E11.22 Type 2 diabetes mellitus with diabetic chronic kidney disease; R35.1 Nocturia; N18.30 Chronic kidney disease, stage 3 unspecified; Z96.652 Presence of left artificial knee joint; Z79.4 Long term (current) use of insulin; Z79.890 Hormone replacement therapy; Z79.899 Other long term (current) drug therapy
CPT/HCPCS: 36415; 76775; 80048; 81001; 82947; 85007; 85027; 99283; J1650

== ENCOUNTER → 2021-02-23 08:51 | Outpatient (BNVA) | payer MEDICARE, SELFPAY | PROVIDERS: PCP Internal Medicine Interventional Cardiology; Visit Provider Urology | DX: R35.1 Nocturia (principal); R33.9 Retention of urine, unspecified | CPT/HCPCS: 51700; 51798; 99212 ==

== ENCOUNTER 2021-03-02 09:29 | Inpatient (IN) | payer OTHER, SELFPAY ==
[2021-03-02] VITALS (7 sets, daily range): BP systolic 101–124; BP diastolic 34–58; PULSE 64–78; RESP 15–18; TEMP 36.3–36.9; O2SAT 94–98; BMI 34.2
--- NOTE | ~2021-03-02 | US_ITS ---
EXAMINATION: US RETROPERITONEAL LIMITED (RENAL ONLY) CLINICAL INFORMATION: Acute kidney injury. Rule out obstruction. COMPARISON: 02/15/2021 TECHNIQUE: Real-time imaging of the kidneys. FINDINGS: RIGHT KIDNEY: 1.6 x 5.8 x 5.6 cm (SAG x AP x TRV). The kidney is normal in size, contour, and echogenicity. Renal cortical thickness is normal. No calculi or focal parenchymal lesions. No hydronephrosis. LEFT KIDNEY: 12.6 x 5.3 x 4.2 cm (SAG x AP x TRV). The kidney is normal in size, contour, and echogenicity. Renal cortical thickness is normal. No calculi or hydronephrosis. There is an exophytic 1.1 cm anechoic left lower pole simple cyst. The left parapelvic cyst seen on prior study is not seen today. US/US renal BI IMPRESSION: No hydronephrosis.
[2021-03-02 10:31] LABS: Basophils Absolute Auto 0.1 X10*3/uL (0.0-0.2); Basophils Percent Auto 0.2 % (0-2); Hematocrit 23.5 % (42-52); Hemoglobin 7.6 g/dl (14.0-18.0); Imm Gran Abs Auto 0.06 X10*3/uL (0.00-0.03); Imm Gran Pct Auto 0.1 % (0.0-0.4); Lymphocytes Percent Auto 90.9 % (20-40); MANUAL DIFF FLAG SCAN; Mean Corpuscular HGB Conc 32.3 g/dl (31.0-36.0); Mean Corpuscular Hemoglobin 33.5 pg (27.0-33.0); Mean Corpuscular Volume 103.5 fL (80-98); Monocytes Absolute Auto 0.8 X10*3/uL (0.1-1.2); Monocytes Percent Auto 1.7 % (2-11); Neutrophils Absolute Auto 3.2 X10*3/uL (2.0-8.3); Neutrophils Percent Auto 7.1 % (45-73); Red Blood Count 2.27 X10*6/uL (4.60-5.80); Red Cell Distribution Width 13.3 % (11.0-16.0); SCAN SMEAR FLAG 1
[2021-03-02 10:33] LABS: Lymphocytes Absolute Auto 41.8 X10*3/uL (1.2-4.9); Platelet Count 61 X10*3/uL (160-400)
[2021-03-02 10:51] LABS: INTERNATIONAL NORM RATIO 1.2 (0.9-1.1); Prothrombin Time 14.2 SEC (9.9-13.0)
[2021-03-02 10:54] LABS: SLIDE REVIEW VERIFIED
[2021-03-02 10:59] LABS: Anion Gap 14 (12-20); Blood Urea Nitrogen 59 mg/dL (9-16); Calcium 7.9 mg/dL (8.4-10.2); Carbon Dioxide 15 mmol/L (22-29); Chloride 107 mmol/L (96-108); Creatinine Clr Calc Pharmacy 23.8; Estimated Glomerular Filt Rate 21; Glucose Random 194 mg/dL (60-115); Potassium 4.6 mmol/L (3.3-5.1); Sodium 131 mmol/L (135-145)
[2021-03-02] MEDS: 0.9 % Sodium Chloride 1,000 ML 999 ML IVCONT ×2 (11:21→14:32)
[2021-03-02 11:42] LABS: COVID-19 Test Negative (Negative); IDNOW Serial# 9DD0AD1C
--- NOTE | 2021-03-02 12:13 | ED.MALEGU ---
HPI - Male Genitourinary General Chief complaint: Urogenital-Male Stated complaint: blood in urine Time Seen by Provider: 03/02/21 09:44 Source: patient Mode of arrival: ambulatory History of Present Illness HPI Narrative: 80-year-old male with a past medical history of CLL, diabetes, first-degree AV block, GERD, gout, hyperlipidemia, hypertension, hypothyroid, CKD, urinary retention with incomplete bladder emptying, presenting to the ED complaining of dysuria, hematuria, and urinary frequency x a couple days. Patient recently had Bashir catheter removed on 02/23 in Urology office for urinary retention/CRISTOPHER. Denies fever, chills, nausea, vomiting, abdominal pain, diarrhea/constipation MD Complaint: dysuria Related Data Home Medications Medication Instructions Recorded Confirmed allopurinol 300 mg PO DAILY 06/20/20 03/02/21 cholecalciferol (vitamin D3) 50 mcg PO DAILY 06/20/20 03/02/21 [Vitamin D3] ferrous sulfate 325 mg PO BID 06/20/20 03/02/21 omeprazole 20 mg PO BID@0630,1630 06/20/20 03/02/21 Lantus U-100 Insulin 9 unit SUBCUT BID 02/17/21 03/02/21 atorvastatin 40 mg PO BEDTIME 02/17/21 03/02/21 empagliflozin 12.5 mg PO DAILY 02/17/21 03/02/21 insulin aspart U-100 [Novolog 6 unit SUBCUT DAILY@1200 02/17/21 03/02/21 U-100 Insulin aspart] insulin aspart U-100 [Novolog 8 unit SUBCUT DAILY@0730 02/17/21 03/02/21 U-100 Insulin aspart] levothyroxine 175 mcg PO DAILY 02/17/21 03/02/21 meclizine 12.5 mg PO BEDTIME PRN 02/17/21 03/02/21 metoprolol succinate [Toprol XL] 12.5 mg PO DAILY 02/17/21 03/02/21 insulin aspart U-100 4 unit SUBCUT DAILY@1700 03/02/21 03/02/21 Previous Rx's Medication Instructions Recorded Imbruvica 420 mg PO DAILY #90 cap 01/30/21 finasteride 5 mg tablet 5 mg PO DAILY 90 Days #90 tab 02/23/21 tamsulosin 0.4 mg capsule 0.4 mg PO BEDTIME 90 Days #90 cap 02/23/21 Allergies Allergy/AdvReac Type Severity Reaction Status Date / Time indomethacin [INDOMETHACIN] Allergy Unknown BLOODY Verified 02/23/21 08:58 STOOLS- TOLD NEVER TO TAKE Review of Systems Review of Systems: Constitutional: No Fever, No Chills, No Fatigue, No Malaise Cardiovascular: No Chest Pain, No SOB Respiratory: No Cough, No Dyspnea Gastrointestinal: No Nausea, No Vomiting, No Diarrhea, No Abdominal pain Genitourinary: + Dysuria, + Urinary Frequency, + Hematuria, + Urgency, No Flank Pain, No Urinary Flow Changes, No Hesitancy Musculoskeletal: No joint pain, No Myalgias, No Joint Swelling Skin: No Skin Lesions, No rash Neuro: No Weakness, No Numbness, No Paresthesias, No Headache Yes all other systems are reviewed and are negative [facility] Past Medical History Attestation statement: The following information was validated with the patient. Medical History Chronic renal insufficiency CLL (chronic lymphocytic leukemia) Diabetes mellitus First degree AV block GERD (gastroesophageal reflux disease) Gout Hyperlipidemia Hypertension Hypothyroid Left anterior fascicular block Pulmonary nodule Skin cancer Thyroid cancer Surgical History H/O thyroidectomy History of knee replacement procedure of left knee (~1994) History of rickets Family History Family History Father No problems noted. Mother Breast cancer DVT (deep venous thrombosis) Brother Intestinal cancer Sister Breast cancer Sister Breast cancer Social History Social History Household Members: Spouse and Children Housing: House Alcohol intake: never Patient Tobacco Use Status: Never used Tobacco Advance Directives: Yes Advance Directives Information Provided: Yes Advance Directives on File: No Advance Directives Date on File: 02/17/21 service: Yes Current occupational status: retired Physical Exam Vital Signs: Vital Signs: Last Vital Signs Temp 98.5 F 03/02/21 10:05 Pulse 68 03/02/21 14:00 Resp 16 03/02/21 14:00 BP 114/50 L 03/02/21 15:25 Pulse Ox 94 03/02/21 14:00 Body Mass Index 34.2 Const: General: cooperative, healthy appearing and no acute distress Orientation/consciousness: patient oriented x3 Limitations: no limitations HENMT: Head: Yes normal to inspection Ears: hearing grossly normal bilaterally General nose exam: Normal external nose present Face and sinus: Yes normal facial exam Eyes: General: appearance normal, both eyes and all related structures EOM: EOMs intact bilaterally Neck: Neck: Yes normal visual inspection Resp: Effort & Inspection: normal respiratory effort and no respiratory distress Cardio: Rate: regular rate GI: Inspection: Yes normal to inspection Palpation (GI): Soft to palpation, nontender, no guarding and not rigid Skin: Rashes: no rashes Wounds: no wounds Neuro: General: patient oriented x3 Gait exam (Neuro): Normal gait present Extrem: General: Yes normal to inspection Course Course Course Narrative: Bladder scan showing 30 cc - chronic leukocytosis of 46, H&H slightly lower than baseline -new CRISTOPHER with creatinine 2.8 > UA still pending, plan to admit for further management UA with gross hematuria -1343-- UA infected IV Rocephin ordered, including lactic and blood cultures. low concern for severe sepsis as patient's lab abnormalities are chronic > (Based on patient's IBW due to obesity 30 mg/kg IVF is 1,980cc IVF and 2L IVF ordered) MDM - Male Genitourinary MDM Narrative Medical decision making narrative: 80-year-old male with a past medical history of CLL, diabetes, first-degree AV block, GERD, gout, hyperlipidemia, hypertension, hypothyroid, CKD, urinary retention with incomplete bladder emptying, presenting to the ED complaining of dysuria, hematuria, and urinary frequency x a couple days. On exam VSS, NAD/well appearing, abdomen soft/nontender, 30cc noted a bladder scan. Concern for UTI and CRISTOPHER. Lower concern for urinary retention/pyelo or renal stone Plan: Labs, UA, IVF, reassess Medical Records Attestation: I reviewed the patient's medical records. Lab Data Attestation: I reviewed the patient's lab results. Result diagrams: 03/02/21 10:25 03/02/21 10:25 Labs: Lab Results 03/02/21 03/02/21 03/02/21 Range/Units 10:25 10:25 10:25 WBC 46.0 H* (4.8-10.8) X10*3/uL RBC 2.27 L (4.60-5.80) X10*6/uL Hgb 7.6 L (14.0-18.0) g/dl Hct 23.5 L (42-52) % MCV 103.5 H (80-98) fL MCH 33.5 H (27.0-33.0) pg MCHC 32.3 (31.0-36.0) g/dl RDW 13.3 (11.0-16.0) % Plt Count 61 L (160-400) X10*3/uL MPV 12.0 (9.4-12.4) fL Immature Gran % (Auto) 0.1 (0.0-0.4) % Neut % (Auto) 7.1 L (45-73) % Lymph % (Auto) 90.9 H (20-40) % [place] % (Auto) 1.7 L (2-11) % Eos % (Auto) 0.0 (0-4) % Baso % (Auto) 0.2 (0-2) % Lymph # (Auto) 41.8 H (1.2-4.9) X10*3/uL [place] # (Auto) 0.8 (0.1-1.2) X10*3/uL Eos # (Auto) 0.0 (0.0-0.4) X10*3/uL Baso # (Auto) 0.1 (0.0-0.2) X10*3/uL Abs Immat Gran (auto) 0.06 H (0.00-0.03) X10*3/uL Absolute Neuts (auto) 3.2 (2.0-8.3) X10*3/uL Absolute Nucleated RBC 0.000 (0.0-0.012) X10*3/uL Nucleated RBC % (auto) 0.0 (0.0-0.2) /100WBC Smear Tech's Comments VERIFIED PT 14.2 H (9.9-13.0) SEC INR 1.2 H (0.9-1.1) APTT 34.0 (24.1-38.0) SEC Sodium 131 L (135-145) mmol/L Potassium 4.6 (3.3-5.1) mmol/L Chloride 107 (96-108) mmol/L Carbon Dioxide 15 L (22-29) mmol/L Anion Gap 14 (12-20) BUN 59 H (9-16) mg/dL Creatinine 2.85 H (0.5-1.4) mg/dL Estim Creat Clear Calc 23.8 Estimated GFR 21 Random Glucose 194 H D (60-115) mg/dL Lactic Acid (0.5-2.0) mmol/L Calcium 7.9 L D (8.4-10.2) mg/dL Urine Color Urine Appearance Urine pH (5.0-8.0) Ur Specific [place] (1.005-1.025) Urine Protein (NEG-TRACE) MG/DL Urine Glucose (UA) (NEG) MG/DL Urine Ketones (NEG) MG/DL Urine Blood (NEG) Urine Nitrite (NEG) Ur Leukocyte Esterase (NEG) Urine RBC (0) /HPF Urine WBC (0-4) /HPF Ur Squamous Epith Cells Urine Bacteria /LPF COVID-19 (YOVANI) (Negative) COVID-19 Clin Com 03/02/21 03/02/21 03/02/21 Range/Units 11:17 12:35 14:28 WBC (4.8-10.8) X10*3/uL RBC (4.60-5.80) X10*6/uL Hgb (14.0-18.0) g/dl Hct (42-52) % MCV (80-98) fL MCH (27.0-33.0) pg MCHC (31.0-36.0) g/dl RDW (11.0-16.0) % Plt Count (160-400) X10*3/uL MPV (9.4-12.4) fL Immature Gran % (Auto) (0.0-0.4) % Neut % (Auto) (45-73) % Lymph % (Auto) (20-40) % [place] % (Auto) (2-11) % Eos % (Auto) (0-4) % Baso % (Auto) (0-2) % Lymph # (Auto) (1.2-4.9) X10*3/uL [place] # (Auto) (0.1-1.2) X10*3/uL Eos # (Auto) (0.0-0.4) X10*3/uL Baso # (Auto) (0.0-0.2) X10*3/uL Abs Immat Gran (auto) (0.00-0.03) X10*3/uL Absolute Neuts (auto) (2.0-8.3) X10*3/uL Absolute Nucleated RBC (0.0-0.012) X10*3/uL Nucleated RBC % (auto) (0.0-0.2) /100WBC Smear Tech's Comments PT (9.9-13.0) SEC INR (0.9-1.1) APTT (24.1-38.0) SEC Sodium (135-145) mmol/L Potassium (3.3-5.1) mmol/L Chloride (96-108) mmol/L Carbon Dioxide (22-29) mmol/L Anion Gap (12-20) BUN (9-16) mg/dL Creatinine (0.5-1.4) mg/dL Estim Creat Clear Calc Estimated GFR Random Glucose (60-115) mg/dL Lactic Acid 1.1 (0.5-2.0) mmol/L Calcium (8.4-10.2) mg/dL Urine Color RED Urine Appearance TURBID Urine pH 5.0 (5.0-8.0) Ur Specific [place] 1.020 (1.005-1.025) Urine Protein 3+ H (NEG-TRACE) MG/DL Urine Glucose (UA) 500 H (NEG) MG/DL Urine Ketones SEE NOTE (NEG) MG/DL Urine Blood 3+ H (NEG) Urine Nitrite POS H (NEG) Ur Leukocyte Esterase 2+ H (NEG) Urine RBC TNTC H (0) /HPF Urine WBC TNTC H (0-4) /HPF Ur Squamous Epith Cells Not Reportable Urine Bacteria 3+ /LPF COVID-19 (YOVANI) Negative (Negative) COVID-19 Clin Com See Note Discharge Plan Discharge Clinical Impression: CRISTOPHER (acute kidney injury), Hematuria
--- NOTE | 2021-03-02 12:54 | PHA.MEDREC ---
Med rec complete, no issues Pharmacy Consult ? Medication Reconciliation Pharmacy has completed the medication reconciliation.
[2021-03-02 12:59] LABS: Glucose Urine UA 500 MG/DL (NEG); Leukocyte Esterase Urine 2+ (NEG); Nitrite Urine POS (NEG); UACC Culture Trigger YES; Urine Blood 3+ (NEG); Urine Protein 3+ MG/DL (NEG-TRACE)
[2021-03-02 13:06] LABS: Appearance Urine TURBID; Color Urine RED
[2021-03-02 13:07] LABS: Bacteria Urine 3+ /LPF; RBC Urine TNTC /HPF (0); WBC Urine TNTC /HPF (0-4)
[2021-03-02] MEDS: cefTRIAXone sodium 1 GM in 0.9 % Sodium Chloride 50 ML IV (14:32)
[2021-03-02 14:55] LABS: Lactic Acid 1.1 mmol/L (0.5-2.0)
--- NOTE | 2021-03-02 16:19 | PM.IMHP ---
History of Present Illness Date of Service: 03/02/21 Chief Complaint: dysuria, hematuria Mr Govea is an 80 year-old man with CLL, DM2, gout, CKD3, hypothyroidism, hypertension, and BPH who presents with 2 days of worsening dysuria, urinary urgency, and gross hematuria. He denies flank pain. No fever, chills, nausea, or vomiting. He just had a Bashir catheter, which had been inserted for urinary retention, removed on 02/23/21. This was placed on his prior admission to this hospital 02/17-02/18/21 for CRISTOPHER related to urinary retention; creatinine improved from 2.17 to 1.57 after the Bashir was placed. He was started on tamsulosin and finasteride. However, his SCr increased to 2.41 on 02/24/21. In the ED here, BP was low at 115/40 and went down to 101/34; it improved to 114/50 after 2L of IV normal saline. WBC was 46, down from 98 on 02/24/21. Urinalysis was positive for nitrites and showed pyuria and was grossly bloody. Review of Systems Review of Systems: Yes all other systems are reviewed and are negative [facility] Medical History Chronic renal insufficiency CLL (chronic lymphocytic leukemia) Diabetes mellitus First degree AV block GERD (gastroesophageal reflux disease) Gout Hyperlipidemia Hypertension Hypothyroid Left anterior fascicular block Pulmonary nodule Skin cancer Thyroid cancer Family History Father No problems noted. Mother Breast cancer DVT (deep venous thrombosis) Brother Intestinal cancer Sister Breast cancer Sister Breast cancer Surgical History H/O thyroidectomy History of knee replacement procedure of left knee (~1994) History of rickets Social History Household Members: Spouse and Children Housing: House Alcohol intake: never Patient Tobacco Use Status: Never used Tobacco Advance Directives: Yes Advance Directives Information Provided: Yes Advance Directives on File: No Advance Directives Date on File: 02/17/21 service: Yes Current occupational status: retired Meds Allergies Allergy/AdvReac Type Severity Reaction Status Date / Time indomethacin [INDOMETHACIN] Allergy Unknown BLOODY Verified 02/23/21 08:58 STOOLS- TOLD NEVER TO TAKE Active Medications: Current Medications Generic Name Dose Route Start Last Admin Trade Name Freq PRN Reason Stop Dose Admin Acetaminophen 650 mg 03/02/21 16:15 Acetaminophen 325 Mg Tablet PO Q6H PRN Pain, Mild (Pain Scale 1-3) Allopurinol 300 mg 03/02/21 16:30 Allopurinol 300 Mg Tablet PO DAILY [facility] Atorvastatin Calcium 40 mg 03/02/21 21:00 Atorvastatin Calcium 40 Mg Tablet PO BEDTIME LOU Finasteride 5 mg 03/02/21 16:30 Finasteride 5 Mg Tablet PO DAILY [facility] Sodium Chloride 1,000 mls @ 100 mls/hr 03/02/21 16:15 Ns IVCONT 03/03/21 02:14 .Q10H [facility] Levothyroxine Sodium 175 mcg 03/02/21 16:30 Levothyroxine Sodium 175 Mcg Tablet PO DAILY [facility] Meclizine HCl 12.5 mg 03/02/21 16:16 Meclizine Hcl 12.5 Mg Tablet PO BEDTIME PRN Dizziness Metoprolol Succinate 12.5 mg 03/02/21 16:30 Metoprolol Succinate Er 12.5 Mg Halftab.Er.24h PO DAILY [facility] Protocol Non-Formulary Medication 325 mg 03/02/21 21:00 Ferrous Sulfate PO BID [facility] Non-Formulary Medication 420 mg 03/02/21 16:30 Ibrutinib [Imbruvica] PO DAILY [facility] Omeprazole 20 mg 03/02/21 16:30 Omeprazole 20 Mg Capsule. PO BID@4830,0270 [facility] Ondansetron HCl 4 mg 03/02/21 16:15 Ondansetron Hcl 4 Mg/2 Ml Vial IVPUSH Q8H PRN Nausea and Vomiting Pharmacy Consult 1 each 03/02/21 11:02 Consult Rx Perform Med Rec MISCELLANE ONCE PRN Consult order Sodium Chloride 3 ml 03/03/21 00:00 0.9 % Sodium Chloride Flush 3 Ml Syringe IVFLUSH QSHIFT [facility] Tamsulosin HCl 0.4 mg 03/02/21 21:00 Tamsulosin Hcl 0.4 Mg Capsule PO BEDTIME [facility] Vitamin D 50 mcg 03/03/21 09:00 Cholecalciferol (Vitamin D3) 25 Mcg Tablet PO DAILY [facility] Home Medications Medication Instructions Recorded Confirmed Last Taken Type allopurinol 300 mg PO DAILY 06/20/20 03/02/21 03/02/21 History cholecalciferol (vitamin D3) 50 mcg PO DAILY 06/20/20 03/02/21 03/02/21 History [Vitamin D3] ferrous sulfate 325 mg PO BID 06/20/20 03/02/21 03/02/21 History omeprazole 20 mg PO BID@0630,1630 06/20/20 03/02/21 03/02/21 History Lantus U-100 Insulin 9 unit SUBCUT BID 02/17/21 03/02/21 03/02/21 History atorvastatin 40 mg PO BEDTIME 02/17/21 03/02/21 03/01/21 History empagliflozin 12.5 mg PO DAILY 02/17/21 03/02/21 03/02/21 History insulin aspart U-100 [Novolog 6 unit SUBCUT DAILY@1200 02/17/21 03/02/21 Unknown History U-100 Insulin aspart] insulin aspart U-100 [Novolog 8 unit SUBCUT DAILY@0730 02/17/21 03/02/21 03/02/21 History U-100 Insulin aspart] levothyroxine 175 mcg PO DAILY 02/17/21 03/02/21 03/02/21 History meclizine 12.5 mg PO BEDTIME PRN 02/17/21 03/02/21 Unknown History metoprolol succinate [Toprol XL] 12.5 mg PO DAILY 02/17/21 03/02/21 03/02/21 History insulin aspart U-100 4 unit SUBCUT DAILY@1700 03/02/21 03/02/21 Unknown History Physical Exam Vital Signs and Narrative: Vital Signs: Last Vital Signs Temp 98.5 F 03/02/21 10:05 Pulse 68 03/02/21 14:00 Resp 16 03/02/21 14:00 BP 114/50 L 03/02/21 15:25 Pulse Ox 94 03/02/21 14:00 Body Mass Index 34.2 Gen: in no acute distress HEENT: sclera anicteric, moist but pale mucus membranes Neck: supple Lungs: clear to auscultation bilaterally Heart: regular rate and rhythm, no murmurs Abd: soft, obese, non-tender, non-distended : no flank tenderness; gross hematuria Ext: trace bilateral lower extremity edema Skin: warm/well-perfused Neuro: alert and oriented x3, no focal findings Psych: appropriate affect Results Labs CBC and Chem 7: 03/02/21 10:25 03/02/21 10:25 Labs: Laboratory Results - last 24 hr 03/02/21 03/02/21 03/02/21 10:25 10:25 10:25 WBC 46.0 H* RBC 2.27 L Hgb 7.6 L Hct 23.5 L MCV 103.5 H MCH 33.5 H MCHC 32.3 RDW 13.3 Plt Count 61 L MPV 12.0 Immature Gran % (Auto) 0.1 Neut % (Auto) 7.1 L Lymph % (Auto) 90.9 H [place] % (Auto) 1.7 L Eos % (Auto) 0.0 Baso % (Auto) 0.2 Lymph # (Auto) 41.8 H [place] # (Auto) 0.8 Eos # (Auto) 0.0 Baso # (Auto) 0.1 Abs Immat Gran (auto) 0.06 H Absolute Neuts (auto) 3.2 Absolute Nucleated RBC 0.000 Nucleated RBC % (auto) 0.0 Smear Tech's Comments VERIFIED PT 14.2 H INR 1.2 H APTT 34.0 Sodium 131 L Potassium 4.6 Chloride 107 Carbon Dioxide 15 L Anion Gap 14 BUN 59 H Creatinine 2.85 H Estim Creat Clear Calc 23.8 Estimated GFR 21 Random Glucose 194 H D Lactic Acid Calcium 7.9 L D Urine Color Urine Appearance Urine pH Ur Specific [place] Urine Protein Urine Glucose (UA) Urine Ketones Urine Blood Urine Nitrite Ur Leukocyte Esterase Urine RBC Urine WBC Ur Squamous Epith Cells Urine Bacteria COVID-19 ([facility]) COVID-19 Clin Com 03/02/21 03/02/21 03/02/21 11:17 12:35 14:28 WBC RBC Hgb Hct MCV MCH MCHC RDW Plt Count MPV Immature Gran % (Auto) Neut % (Auto) Lymph % (Auto) Cedar % (Auto) Eos % (Auto) Baso % (Auto) Lymph # (Auto) Cedar # (Auto) Eos # (Auto) Baso # (Auto) Abs Immat Gran (auto) Absolute Neuts (auto) Absolute Nucleated RBC Nucleated RBC % (auto) Smear Tech's Comments PT INR APTT Sodium Potassium Chloride Carbon Dioxide Anion Gap BUN Creatinine Estim Creat Clear Calc Estimated GFR Random Glucose Lactic Acid 1.1 Calcium Urine Color RED Urine Appearance TURBID Urine pH 5.0 Ur Specific [place] 1.020 Urine Protein 3+ H Urine Glucose (UA) 500 H Urine Ketones SEE NOTE Urine Blood 3+ H Urine Nitrite POS H Ur Leukocyte Esterase 2+ H Urine RBC TNTC H Urine WBC TNTC H Ur Squamous Epith Cells Not Reportable Urine Bacteria 3+ COVID-19 ([facility]OV[facility]) Negative COVID-19 Clin Com See Note Assessment and Plan (1) CRISTOPHER (acute kidney injury): Status: Acute (2) Hematuria: Status: Acute 80 year-old man with CLL, DM2, gout, CKD3, hypothyroidism, hypertension, and BPH who presents with 2 days of worsening dysuria, urinary urgency, and gross hematuria after recent Bashir catheterization. # urinary tract infection, complicated - admit to med/surg. given recent catheterization/hospitalization and DM, will cover for resistant GNRs with pip/treasure. follow UCx/BCx # hypotension - does not, strictly speaking, meet sepsis criteria and BP has improved with fluid resuscitation # hematuria - no heparin, consult Urology; likely infection + recent catherization # CRISTOPHER/CKD3 - continue IV fluid hydration, consult Nephrology, avoid nephrotoxins, check renal US # anemia - multifactorial- CKD, CLL. check B12/FA. T+S, transfuse if Hb <7. continue iron. # thrombocytopenia - platelets low but stable, related to CLL vs hypersplenism # HLD - statin # CLL - continue ibrutinib [pt's family will bring in from home] # HTN - metoprolol # LEO cirrhosis - not decompensated # BPH - continue tamsulosin + finasteride # gout - reduce allopurinol given renal dysfunction to 100 mg daily # DM2 - hold OHGs, check correction-dose lispro # VTE ppx - SCDs, no heparin given hematuria Quality Stroke Does the patient have a stroke diagnosis?: No VTE Prior VTE?: No VTE Risk Level:: Medical - moderate - high VTE Device Contraindication: N/A - Device Ordered VTE Drug Contraindication: Treatment Not Indicated
--- NOTE | 2021-03-02 18:07 | MHC.CM.PN ---
CM met with A&O x3 gentleman. IMM reviewed and signed per protocol 03/02/21@8320. Pt lives with , uses a cane and diabetic supplies and still drives his own car. Pt has no services. Pt has his care at the [facility] by Dr. Adan Bass and uses the [place] [facility]. Pt was in the [employer]. Pt has CLL and sees Dr. Kim. Pt also sees Dr. Restrepo and Dr. Jenkins. D/C plan is home without services. Transportation by family. Pt states he has his car here and can drive himself. CM encouraged pt to call family for transportation home. CM to follow for d/c needs.
[2021-03-02] MEDS: Omeprazole 20 MG CAPSULE.DR PO (18:08)
[2021-03-02] MEDS: Piperacillin Sodium/Tazobactam 2.25 GM in 0.9 % Sodium Chloride 50 ML IV ×2 (18:08→22:37)
[2021-03-02] MEDS: 0.9 % Sodium Chloride 1,000 ML 100 ML IVCONT (18:08)
[2021-03-02 18:56] LABS: Glucose, Whole Blood 116 mg/dL (60-115)
--- NOTE | 2021-03-02 18:57 | PC.NURSE ---
POC Glucose 116. Provider aware.
--- NOTE | 2021-03-02 19:50 | PC.NURSE ---
Called Med/Surg unit to give RN to RN report. RN unavailable at this time, awaiting call back.
--- NOTE | 2021-03-02 20:19 | PC.NURSE ---
RN to RN report given to Denise WALTON. Preparing for admission.
[2021-03-02 21:09] LABS: Glucose, Whole Blood 109 mg/dL (60-115)
[2021-03-02] MEDS: 0.9 % Sodium Chloride Flush 3 ML SYRINGE IVFLUSH (21:13)
[2021-03-02] MEDS: Atorvastatin Calcium 40 MG TABLET PO (21:13)
[2021-03-02] MEDS: Ferrous Sulfate 324 MG TABLET.DR PO (21:13)
[2021-03-02] MEDS: Tamsulosin HCL 0.4 MG CAPSULE PO (21:13)
[2021-03-02] MEDS: Docusate Sodium 100 MG CAPSULE PO (21:13)
[2021-03-03] VITALS (10 sets, daily range): BP systolic 112–138; BP diastolic 46–62; PULSE 58–67; RESP 16–20; TEMP 36.1–36.8; O2SAT 95–97
[2021-03-03] MEDS: Piperacillin Sodium/Tazobactam 2.25 GM in 0.9 % Sodium Chloride 50 ML IV ×4 (04:58→21:10)
[2021-03-03] MEDS: Levothyroxine Sodium 175 MCG TABLET PO (05:37)
[2021-03-03] MEDS: Omeprazole 20 MG CAPSULE.DR PO ×2 (05:37→17:46)
[2021-03-03 06:29] LABS: Hematocrit 21.1 % (42-52); Mean Corpuscular HGB Conc 32.2 g/dl (31.0-36.0); Mean Corpuscular Hemoglobin 33.7 pg (27.0-33.0); Mean Corpuscular Volume 104.5 fL (80-98); Platelet Count 55 X10*3/uL (160-400); Red Blood Count 2.02 X10*6/uL (4.60-5.80); Red Cell Distribution Width 13.3 % (11.0-16.0)
[2021-03-03 06:30] LABS: Immature Retic Fraction 21.1 % (2.3-13.4); Reticulocyte Percent 1.2 % (0.5-1.8); Reticulocytes Absolute 0.024 X10*6/uL (0.026-0.095)
[2021-03-03 06:35] LABS: White Blood Count 35.6 X10*3/uL (4.8-10.8)
[2021-03-03 06:36] LABS: Hemoglobin 6.8 g/dl (14.0-18.0)
[2021-03-03 07:00] LABS: Iron 29 mcg/dL (45-160); Percent Iron Saturation 17 % (15-50); Total Iron Binding Capacity 169 mcg/dL (228-428); Unsaturated Iron Binding 140 ug/dL
[2021-03-03 07:12] LABS: Anion Gap 11 (12-20); Blood Urea Nitrogen 52 mg/dL (9-16); Calcium 7.5 mg/dL (8.4-10.2); Carbon Dioxide 16 mmol/L (22-29); Chloride 113 mmol/L (96-108); Estimated Glomerular Filt Rate 27; Glucose Random 107 mg/dL (60-115); Potassium 4.1 mmol/L (3.3-5.1); Sodium 136 mmol/L (135-145)
[2021-03-03 07:28] LABS: Folate 13.7 ng/mL (> or = 4.0); Vitamin B12 393 pg/mL (200-900)
--- NOTE | 2021-03-03 07:55 | PM.CNNEP ---
History of Present Illness Reason for Consult Consult date: 03/03/21 Chief Complaint Chief complaint: Complicated UTI Hematuria Review of Systems Review of Systems Constitutional: No Fever, No Chills, No Fatigue, No Malaise Cardiovascular: No Chest Pain, No SOB Respiratory: No Cough, No Dyspnea Gastrointestinal: No Nausea, No Vomiting, No Diarrhea, No Abdominal pain Genitourinary: + Dysuria, + Urinary Frequency, + Hematuria, + Urgency, No Flank Pain, No Urinary Flow Changes, No Hesitancy Musculoskeletal: No joint pain, No Myalgias, No Joint Swelling Skin: No Skin Lesions, No rash Neuro: No Weakness, No Numbness, No Paresthesias, No Headache Yes all other systems are reviewed and are negative PMFSH Past Medical History Medical History Chronic renal insufficiency CLL (chronic lymphocytic leukemia) Diabetes mellitus First degree AV block GERD (gastroesophageal reflux disease) Gout Hyperlipidemia Hypertension Hypothyroid Left anterior fascicular block Pulmonary nodule Skin cancer Thyroid cancer Family History Family History Father No problems noted. Mother Breast cancer DVT (deep venous thrombosis) Brother Intestinal cancer Sister Breast cancer Sister Breast cancer Surgical History Surgical History H/O thyroidectomy History of knee replacement procedure of left knee (~1994) History of rickets Social History Social History Household Members: Spouse Housing: House Do you presently have visiting nurse or other home services: No Alcohol intake: unknown Patient Tobacco Use Status: Never used Tobacco Use of substances other than those prescribed or required for medical reasons: No Have you been hit, kicked, punched, or otherwise hurt by someone within the past year? If so, by whom?: No Do you feel safe in your current relationship?: Yes Is there a partner from a previous relationship who is making you feel unsafe now?: No Are you made to feel afraid or neglected: No Advance Directives: Yes Advance Directives Information Provided: Yes Advance Directives on File: No Advance Directives Date on File: 02/17/21 Do you have thoughts of harming others: None Do you have a plan to hurt others: No Plan Recently lost weight without trying: No Eating poorly because of decreased appetite: No Nutrition Risks: No Nutritional Risk Poor oral hygiene: No service: Yes Current occupational status: retired Meds Allergies Allergy/AdvReac Type Severity Reaction Status Date / Time indomethacin [INDOMETHACIN] Allergy Unknown BLOODY Verified 02/23/21 08:58 STOOLS- TOLD NEVER TO TAKE Active Medications: Current Medications Generic Name Dose Route Start Last Admin Trade Name [place] PRN Reason Stop Dose Admin Acetaminophen 650 mg 03/02/21 16:15 Acetaminophen 325 Mg Tablet PO Q6H PRN Pain, Mild (Pain Scale 1-3) Allopurinol 100 mg 03/03/21 09:00 Allopurinol 100 Mg Tablet PO DAILY [facility] Atorvastatin Calcium 40 mg 03/02/21 21:00 03/02/21 21:13 Atorvastatin Calcium 40 Mg Tablet PO 40 mg BEDTIME LOU Administration Docusate Sodium 100 mg 03/02/21 21:00 03/02/21 21:13 Docusate Sodium 100 Mg Capsule PO 100 mg BID [facility] Administration Ferrous Sulfate 324 mg 03/02/21 21:00 03/02/21 21:13 Ferrous Sulfate 324 Mg Tablet. PO 324 mg BID LOU Administration Finasteride 5 mg 03/03/21 09:00 Finasteride 5 Mg Tablet PO DAILY [facility] Piperacillin Sod/Tazobactam 50 mls @ 100 mls/hr 03/02/21 16:45 03/03/21 05:32 Sod 2.25 gm/ Sodium Chloride IV Infused Q6H [facility] Infusion Insulin Human Lispro 0 unit 03/02/21 16:30 03/03/21 07:50 Insulin Lispro 100 Unit/Ml 3 Ml Vial SUBCUT Not Given QIDACHS [facility] Protocol Levothyroxine Sodium 175 mcg 03/03/21 06:00 03/03/21 05:37 Levothyroxine Sodium 175 Mcg Tablet PO 175 mcg DAILY@0600 [facility] Administration Meclizine HCl 12.5 mg 03/02/21 16:16 Meclizine Hcl 12.5 Mg Tablet PO BEDTIME PRN Dizziness Metoprolol Succinate 12.5 mg 03/03/21 09:00 Metoprolol Succinate Er 12.5 Mg Halftab.Er.24h PO DAILY [facility] Protocol Non-Formulary Medication 420 mg 03/02/21 16:30 Ibrutinib [Imbruvica] PO DAILY [facility] Omeprazole 20 mg 03/02/21 16:30 03/03/21 05:37 Omeprazole 20 Mg Capsule. PO 20 mg BID@0630,1630 [facility] Administration Ondansetron HCl 4 mg 03/02/21 16:15 Ondansetron Hcl 4 Mg/2 Ml Vial IVPUSH Q8H PRN Nausea and Vomiting Pharmacy Consult 1 each 03/02/21 11:02 Consult Rx Perform Med Rec MISCELLANE ONCE PRN Consult order Sodium Chloride 3 ml 03/03/21 00:00 03/02/21 21:13 0.9 % Sodium Chloride Flush 3 Ml Syringe IVFLUSH 3 ml QSHIFT [facility] Administration Tamsulosin HCl 0.4 mg 03/02/21 21:00 03/02/21 21:13 Tamsulosin Hcl 0.4 Mg Capsule PO 0.4 mg BEDTIME LOU Administration Vitamin D 50 mcg 03/03/21 09:00 Cholecalciferol (Vitamin D3) 25 Mcg Tablet PO DAILY [facility] Home Medications Medication Instructions Recorded Confirmed Last Taken Type allopurinol 300 mg PO DAILY 06/20/20 03/02/21 03/02/21 History cholecalciferol (vitamin D3) 50 mcg PO DAILY 06/20/20 03/02/21 03/02/21 History [Vitamin D3] ferrous sulfate 325 mg PO BID 06/20/20 03/02/21 03/02/21 History omeprazole 20 mg PO BID@0630,1630 06/20/20 03/02/21 03/02/21 History Lantus U-100 Insulin 9 unit SUBCUT BID 02/17/21 03/02/21 03/02/21 History atorvastatin 40 mg PO BEDTIME 02/17/21 03/02/21 03/01/21 History empagliflozin 12.5 mg PO DAILY 02/17/21 03/02/21 03/02/21 History insulin aspart U-100 [Novolog 6 unit SUBCUT DAILY@1200 02/17/21 03/02/21 Unknown History U-100 Insulin aspart] insulin aspart U-100 [Novolog 8 unit SUBCUT DAILY@0730 02/17/21 03/02/21 03/02/21 History U-100 Insulin aspart] levothyroxine 175 mcg PO DAILY 02/17/21 03/02/21 03/02/21 History meclizine 12.5 mg PO BEDTIME PRN 02/17/21 03/02/21 Unknown History metoprolol succinate [Toprol XL] 12.5 mg PO DAILY 02/17/21 03/02/21 03/02/21 History insulin aspart U-100 4 unit SUBCUT DAILY@1700 03/02/21 03/02/21 Unknown History Physical Exam Vital Signs: Last Vital Signs Temp 97.5 F 03/03/21 07:09 Pulse 58 03/03/21 07:09 Resp 17 03/03/21 07:09 BP 112/55 L 03/03/21 07:09 Pulse Ox 96 03/03/21 07:09 Body Mass Index 34.2 Const General: cooperative, healthy appearing and no acute distress Orientation/consciousness: patient oriented x3 Limitations: no limitations HENMT Head: Yes normal to inspection Ears: hearing grossly normal bilaterally General nose exam: Normal external nose present Face and sinus: Yes normal facial exam Eyes General: appearance normal, both eyes and all related structures EOM: EOMs intact bilaterally Neck Neck: Yes normal visual inspection Resp Effort & Inspection: normal respiratory effort and no respiratory distress Cardio Rate: regular rate GI Inspection: Yes normal to inspection Palpation (GI): Soft to palpation, nontender, no guarding and not rigid Skin Rashes: no rashes Wounds: no wounds Neuro General: patient oriented x3 Gait exam (Neuro): Normal gait present Extrem General: Yes normal to inspection Results Lab Results Result Diagrams: 03/03/21 05:50 03/03/21 05:50 Lab results: Chemistry 03/02/21 03/03/21 10:25 05:50 Sodium 131 L 136 Potassium 4.6 4.1 Carbon Dioxide 15 L 16 L BUN 59 H 52 H Creatinine 2.85 H 2.34 H Calcium 7.9 L D 7.5 L Hematology 03/02/21 03/03/21 10:25 05:50 WBC 46.0 H* 35.6 H* Hgb 7.6 L 6.8 L* Plt Count 61 L 55 L Urinalysis 03/02/21 12:35 Urine Color RED Urine Appearance TURBID Urine pH 5.0 Ur Specific [place] 1.020 Urine Protein 3+ H Urine Glucose (UA) 500 H Urine Ketones SEE NOTE Urine Blood 3+ H Urine Nitrite POS H Ur Leukocyte Esterase 2+ H Urine RBC TNTC H Urine WBC TNTC H Ur Squamous Epith Cells Not Reportable Assessment and Plan (1) CRISTOPHER (acute kidney injury): Status: Acute 80 year-old man with CLL, DM2, gout, CKD3, hypothyroidism, hypertension, and BPH who presents with 2 days of worsening dysuria, urinary urgency, and gross hematuria. He denies flank pain. No fever, chills, nausea, or vomiting. He just had a Bashir catheter, which had been inserted for urinary retention, removed on 02/23/21. This was placed on his prior admission to this hospital 02/17-02/18/21 for CRISTOPHER related to urinary retention; creatinine improved from 2.17 to 1.57 after the Bashir was placed. He was started on tamsulosin and finasteride. However, his SCr increased to 2.41 on 02/24/21. Now improving. Baseline 1.5-1.9 Renal US no hydro In the ED here, BP was low at 115/40 and went down to 101/34; it improved to 114/50 after 2L of IV normal saline. WBC was 46, down from 98 on 02/24/21. Urinalysis was positive for nitrites and showed pyuria and was grossly bloody. He has underlying CKD, resolving CRITSOPHER responding to fluids and an UTI (2) Hematuria: Status: Acute Procedures Date of Service Date of Service: 03/03/21
[2021-03-03 08:33] LABS: Glucose, Whole Blood 101 mg/dL (60-115)
[2021-03-03] MEDS: 0.9 % Sodium Chloride Flush 3 ML SYRINGE IVFLUSH ×3 (09:43→21:18)
[2021-03-03] MEDS: Docusate Sodium 100 MG CAPSULE PO ×2 (10:12→21:09)
[2021-03-03] MEDS: Finasteride 5 MG TABLET PO (10:12)
[2021-03-03] MEDS: Cholecalciferol (Vitamin D3) 25 MCG TABLET 50 MCG PO (10:12)
[2021-03-03] MEDS: allopurinoL 100 MG TABLET PO (10:13)
[2021-03-03] MEDS: Ferrous Sulfate 324 MG TABLET.DR PO ×2 (10:13→21:09)
[2021-03-03] MEDS: Metoprolol Succinate ER 12.5 MG HALFTAB.ER.24H PO (10:13)
--- NOTE | 2021-03-03 10:22 | MHC.CLN ---
NUTRITION RECOMMEND DIABETIC DIET WITH 2200 KCAL. 2200 KCAL PROVIDES 27.2 KCAL/KG CMW. PATIENT IS OBESE WITH BMI=34.2.
[2021-03-03 11:35] LABS: Glucose, Whole Blood 133 mg/dL (60-115)
--- NOTE | 2021-03-03 15:36 | P.PNIM_ITS ---
Subjective Subjective Date of Service: 03/03/21 Interval History: dysuria improved, still having some hematuria no lightheadedness Hb down to 6.8; consents for transfusion Physical Exam Vital Signs: Vital Signs: Last Vital Signs Temp 97.3 F 03/03/21 13:49 Pulse 62 03/03/21 13:49 Resp 18 03/03/21 13:49 BP 116/51 L 03/03/21 13:49 Pulse Ox 96 03/03/21 07:09 Body Mass Index 34.2 Gen: in no acute distress HEENT: sclera anicteric, moist but pale mucus membranes Neck: supple Lungs: clear to auscultation bilaterally Heart: regular rate and rhythm, no murmurs Abd: soft, obese, non-tender, non-distended : no flank tenderness; gross hematuria Ext: trace bilateral lower extremity edema Skin: warm/well-perfused Neuro: alert and oriented x3, no focal findings Psych: appropriate affect Objective Data Current Medications Generic Name Dose Route Start Last Admin Trade Name Freq PRN Reason Stop Dose Admin Acetaminophen 650 mg 03/02/21 16:15 Acetaminophen 325 Mg Tablet PO Q6H PRN Pain, Mild (Pain Scale 1-3) Allopurinol 100 mg 03/03/21 09:00 03/03/21 10:13 Allopurinol 100 Mg Tablet PO 100 mg DAILY LOU Administration Atorvastatin Calcium 40 mg 03/02/21 21:00 03/02/21 21:13 Atorvastatin Calcium 40 Mg Tablet PO 40 mg BEDTIME LOU Administration Docusate Sodium 100 mg 03/02/21 21:00 03/03/21 10:12 Docusate Sodium 100 Mg Capsule PO 100 mg BID LOU Administration Ferrous Sulfate 324 mg 03/02/21 21:00 03/03/21 10:13 Ferrous Sulfate 324 Mg Tablet.Dr PO 324 mg BID LOU Administration Finasteride 5 mg 03/03/21 09:00 03/03/21 10:12 Finasteride 5 Mg Tablet PO 5 mg DAILY LOU Administration Piperacillin Sod/Tazobactam 50 mls @ 100 mls/hr 03/02/21 16:45 03/03/21 11:01 Sod 2.25 gm/ Sodium Chloride IV Infused Q6H LOU Infusion Insulin Human Lispro 0 unit 03/02/21 16:30 03/03/21 11:49 Insulin Lispro 100 Unit/Ml 3 Ml Vial SUBCUT Not Given QIDACHS [facility] Protocol Levothyroxine Sodium 175 mcg 03/03/21 06:00 03/03/21 05:37 Levothyroxine Sodium 175 Mcg Tablet PO 175 mcg DAILY@0600 LOU Administration Meclizine HCl 12.5 mg 03/02/21 16:16 Meclizine Hcl 12.5 Mg Tablet PO BEDTIME PRN Dizziness Metoprolol Succinate 12.5 mg 03/03/21 09:00 03/03/21 10:13 Metoprolol Succinate Er 12.5 Mg Halftab.Er.24h PO 12.5 mg DAILY LOU Administration Protocol Omeprazole 20 mg 03/02/21 16:30 03/03/21 05:37 Omeprazole 20 Mg Capsule. PO 20 mg BID@0630,1630 [facility] Administration Ondansetron HCl 4 mg 03/02/21 16:15 Ondansetron Hcl 4 Mg/2 Ml Vial IVPUSH Q8H PRN Nausea and Vomiting Pharmacy Consult 1 each 03/02/21 11:02 Consult Rx Perform Med Rec MISCELLANE ONCE PRN Consult order Sodium Chloride 3 ml 03/03/21 00:00 03/03/21 15:35 0.9 % Sodium Chloride Flush 3 Ml Syringe IVFLUSH 3 ml QSHIFT [facility] Administration Tamsulosin HCl 0.4 mg 03/02/21 21:00 03/02/21 21:13 Tamsulosin Hcl 0.4 Mg Capsule PO 0.4 mg BEDTIME [facility] Administration Vitamin D 50 mcg 03/03/21 09:00 03/03/21 10:12 Cholecalciferol (Vitamin D3) 25 Mcg Tablet PO 50 mcg DAILY LOU Administration Labs CBC & Chem 7: 03/03/21 05:50 03/03/21 05:50 Labs: Laboratory Results - last 24 hr 03/02/21 03/02/21 03/03/21 18:51 21:05 05:50 WBC 35.6 H* RBC 2.02 L Hgb 6.8 L* Hct 21.1 L MCV 104.5 H MCH 33.7 H MCHC 32.2 RDW 13.3 Plt Count 55 L MPV 13.0 H Absolute Nucleated RBC 0.000 Nucleated RBC % (auto) 0.0 Absolute Retic Percent Retic Immature Retic Fraction Retic Hgb Equivalent Sodium Potassium Chloride Carbon Dioxide Anion Gap BUN Creatinine Estim Creat Clear Calc Estimated GFR POC Glucose 116 H 109 Random Glucose Calcium Iron TIBC % Saturation Unsat Iron Binding Vitamin B12 Folate Blood Type Antibody Screen Crossmatch 03/03/21 03/03/21 03/03/21 05:50 05:50 05:50 WBC RBC Hgb Hct MCV MCH MCHC RDW Plt Count MPV Absolute Nucleated RBC Nucleated RBC % (auto) Absolute Retic 0.024 L Percent Retic 1.2 Immature Retic Fraction 21.1 H Retic Hgb Equivalent 32.0 Sodium 136 Potassium 4.1 Chloride 113 H Carbon Dioxide 16 L Anion Gap 11 L BUN 52 H Creatinine 2.34 H Estim Creat Clear Calc 29.0 Estimated GFR 27 POC Glucose Random Glucose 107 D Calcium 7.5 L Iron 29 L TIBC 169 L % Saturation 17 Unsat Iron Binding 140 Vitamin B12 Folate Blood Type Antibody Screen Crossmatch 03/03/21 03/03/21 03/03/21 05:50 07:12 07:39 WBC RBC Hgb Hct MCV MCH MCHC RDW Plt Count MPV Absolute Nucleated RBC Nucleated RBC % (auto) Absolute Retic Percent Retic Immature Retic Fraction Retic Hgb Equivalent Sodium Potassium Chloride Carbon Dioxide Anion Gap BUN Creatinine Estim Creat Clear Calc Estimated GFR POC Glucose 101 Random Glucose Calcium Iron TIBC % Saturation Unsat Iron Binding Vitamin B12 393 Folate 13.7 Blood Type A Negative Antibody Screen NEGATIVE Crossmatch See Detail 03/03/21 11:24 WBC RBC Hgb Hct MCV MCH MCHC RDW Plt Count MPV Absolute Nucleated RBC Nucleated RBC % (auto) Absolute Retic Percent Retic Immature Retic Fraction Retic Hgb Equivalent Sodium Potassium Chloride Carbon Dioxide Anion Gap BUN Creatinine Estim Creat Clear Calc Estimated GFR POC Glucose 133 H Random Glucose Calcium Iron TIBC % Saturation Unsat Iron Binding Vitamin B12 Folate Blood Type Antibody Screen Crossmatch Microbiology Microbiology Results: Microbiology 03/02/21 00:00 Urine Culture - Preliminary Urine clean catch - Urine kumar top Gram negative césar Quality Stroke Does the patient have a stroke diagnosis?: No VTE Prior VTE?: No VTE Risk Level:: Medical - moderate - high VTE Device Contraindication: N/A - Device Ordered VTE Drug Contraindication: Treatment Not Indicated Assessment and Plan (1) Hematuria: Status: Acute (2) CRISTOPHER (acute kidney injury): Status: Acute Assessment and Plan: hospital d#2 80 year-old man with CLL, DM2, gout, CKD3, hypothyroidism, hypertension, and BPH admitted with gross hematuria after recent Bashir catheterization, dysuria/urgency likely due to UTI # urinary tract infection, complicated - pip/treasure d#2, follow BCx/UCx # hypotension - not septic, resolved after fluid resuscitation # hematuria - no heparin, Urology consult pending; likely due to infection + recent catheterization - discussed with pt's oncologist Dr Kim- d/c ibrutinib for now as associated with bleeding # CRISTOPHER/CKD3 - SCr improved, no hydronephrosis on US, Nephrology following, avoid nep hrotoxins # acute/chronic anemia - multifactorial- due to hematuria, CKD, CLL, chemotherapy, iron deficiency, cirrhosis - will transfuse 2u pRBCs and recheck CBC tomorrow - continue Fe # thrombocytopenia - platelets low but stable, 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
[2021-03-03 16:59] LABS: Glucose, Whole Blood 175 mg/dL (60-115)
[2021-03-03] MEDS: Insulin Lispro 100 UNIT/ML 3 ML VIAL SUBCUT ×2 (17:46→21:10)
--- NOTE | 2021-03-03 19:45 | PC.NURSE ---
urinating 50-75 ml at the time, urine red/brown.PVR 571 and 560ml. RN spoke with DR Friedman, shyann cartwright. DR Marley came to to see the patient tonight and insered norris cath 16 fr.Instant urine flow 800 ml dark red/brown
[2021-03-03 20:21] LABS: Glucose, Whole Blood 158 mg/dL (60-115)
[2021-03-03] MEDS: Atorvastatin Calcium 40 MG TABLET PO (21:09)
[2021-03-03] MEDS: Tamsulosin HCL 0.4 MG CAPSULE PO (21:09)
[2021-03-04 03:19] VITALS: BP 124/57; PULSE 62; RESP 16; TEMP 36; O2SAT 96
[2021-03-04] MEDS: Piperacillin Sodium/Tazobactam 2.25 GM in 0.9 % Sodium Chloride 50 ML IV (05:48)
[2021-03-04] MEDS: Levothyroxine Sodium 175 MCG TABLET PO (05:50)
[2021-03-04] MEDS: Omeprazole 20 MG CAPSULE.DR PO ×2 (05:50→17:06)
[2021-03-04 06:13] LABS: Hematocrit 27.5 % (42-52); Mean Corpuscular HGB Conc 32.7 g/dl (31.0-36.0); Mean Corpuscular Hemoglobin 33.3 pg (27.0-33.0); Mean Corpuscular Volume 101.9 fL (80-98); Mean Platelet Volume 11.6 fL (9.4-12.4); Red Cell Distribution Width 14.5 % (11.0-16.0)
[2021-03-04 06:24] LABS: Platelet Count 60 X10*3/uL (160-400)
[2021-03-04 06:27] LABS: White Blood Count 42.3 X10*3/uL (4.8-10.8)
[2021-03-04 06:51] LABS: Anion Gap 14 (12-20); Blood Urea Nitrogen 45 mg/dL (9-16); Calcium 7.8 mg/dL (8.4-10.2); Carbon Dioxide 13 mmol/L (22-29); Chloride 113 mmol/L (96-108); Creatinine Clr Calc Pharmacy 31.6; Estimated Glomerular Filt Rate 30; Glucose Random 184 mg/dL (60-115); Potassium 4.1 mmol/L (3.3-5.1); Sodium 136 mmol/L (135-145)
[2021-03-04 07:22] VITALS: BP 115/58; PULSE 58; RESP 17; TEMP 36.3; O2SAT 97
[2021-03-04 07:28] LABS: Glucose, Whole Blood 150 mg/dL (60-115)
[2021-03-04] MEDS: Metoprolol Succinate ER 12.5 MG HALFTAB.ER.24H PO (08:47)
[2021-03-04] MEDS: Docusate Sodium 100 MG CAPSULE PO ×2 (08:47→21:44)
[2021-03-04] MEDS: Cholecalciferol (Vitamin D3) 25 MCG TABLET 50 MCG PO (08:47)
[2021-03-04] MEDS: Ferrous Sulfate 324 MG TABLET.DR PO ×2 (08:47→21:44)
[2021-03-04] MEDS: allopurinoL 100 MG TABLET PO (08:47)
[2021-03-04] MEDS: Finasteride 5 MG TABLET PO (08:47)
[2021-03-04] MEDS: 0.9 % Sodium Chloride Flush 3 ML SYRINGE IVFLUSH ×2 (08:48→17:06)
[2021-03-04 11:12] VITALS: BP 110/57; PULSE 58; RESP 16; TEMP 35.9; O2SAT 97
[2021-03-04 11:24] LABS: Glucose, Whole Blood 153 mg/dL (60-115)
--- NOTE | 2021-03-04 11:51 | P.PNIM_ITS ---
Subjective Subjective Date of Service: 03/04/21 Interval History: Retaining urine- PVR 570 mL+; so Bashir placed Urine still blood-tinged but less so Dysuria improved UCx grew Enterobacter cloaecae Tolerated transfusion Physical Exam Vital Signs: Vital Signs: Last Vital Signs Temp 96.6 F L 03/04/21 11:12 Pulse 58 03/04/21 11:12 Resp 16 03/04/21 11:12 BP 110/57 L 03/04/21 11:12 Pulse Ox 97 03/04/21 11:12 Body Mass Index 34.2 Gen: in no acute distress HEENT: sclera anicteric, moist but pale mucus membranes Neck: supple Lungs: clear to auscultation bilaterally Heart: regular rate and rhythm, no murmurs Abd: soft, obese, non-tender, non-distended : no flank tenderness; Bashir with blood-tinged urine but no clots Ext: trace bilateral lower extremity edema Skin: warm/well-perfused Neuro: alert and oriented x3, no focal findings Psych: appropriate affect Objective Data Current Medications Generic Name Dose Route Start Last Admin Trade Name Freq PRN Reason Stop Dose Admin Acetaminophen 650 mg 03/02/21 16:15 Acetaminophen 325 Mg Tablet PO Q6H PRN Pain, Mild (Pain Scale 1-3) Allopurinol 100 mg 03/03/21 09:00 03/04/21 08:47 Allopurinol 100 Mg Tablet PO 100 mg DAILY LOU Administration Atorvastatin Calcium 40 mg 03/02/21 21:00 03/03/21 21:09 Atorvastatin Calcium 40 Mg Tablet PO 40 mg BEDTIME LOU Administration Docusate Sodium 100 mg 03/02/21 21:00 03/04/21 08:47 Docusate Sodium 100 Mg Capsule PO 100 mg BID LOU Administration Ferrous Sulfate 324 mg 03/02/21 21:00 03/04/21 08:47 Ferrous Sulfate 324 Mg Tablet. PO 324 mg BID LOU Administration Finasteride 5 mg 03/03/21 09:00 03/04/21 08:47 Finasteride 5 Mg Tablet PO 5 mg DAILY LOU Administration Piperacillin Sod/Tazobactam 50 mls @ 100 mls/hr 03/02/21 16:45 03/04/21 06:21 Sod 2.25 gm/ Sodium Chloride IV Infused Q6H LOU Infusion Insulin Human Lispro 0 unit 03/02/21 16:30 03/04/21 08:48 Insulin Lispro 100 Unit/Ml 3 Ml Vial SUBCUT Not Given QIDACHS [facility] Protocol Levothyroxine Sodium 175 mcg 03/03/21 06:00 03/04/21 05:50 Levothyroxine Sodium 175 Mcg Tablet PO 175 mcg DAILY@0600 LOU Administration Meclizine HCl 12.5 mg 03/02/21 16:16 Meclizine Hcl 12.5 Mg Tablet PO BEDTIME PRN Dizziness Metoprolol Succinate 12.5 mg 03/03/21 09:00 03/04/21 08:47 Metoprolol Succinate Er 12.5 Mg Halftab.Er.24h PO 12.5 mg DAILY [facility] Administration Protocol Omeprazole 20 mg 03/02/21 16:30 03/04/21 05:50 Omeprazole 20 Mg Capsule. PO 20 mg BID@0630,1630 [facility] Administration Ondansetron HCl 4 mg 03/02/21 16:15 Ondansetron Hcl 4 Mg/2 Ml Vial IVPUSH Q8H PRN Nausea and Vomiting Pharmacy Consult 1 each 03/02/21 11:02 Consult Rx Perform Med Rec MISCELLANE ONCE PRN Consult order Sodium Chloride 3 ml 03/03/21 00:00 03/04/21 08:48 0.9 % Sodium Chloride Flush 3 Ml Syringe IVFLUSH 3 ml QSHIFT [facility] Administration Tamsulosin HCl 0.4 mg 03/02/21 21:00 03/03/21 21:09 Tamsulosin Hcl 0.4 Mg Capsule PO 0.4 mg BEDTIME LOU Administration Vitamin D 50 mcg 03/03/21 09:00 03/04/21 08:47 Cholecalciferol (Vitamin D3) 25 Mcg Tablet PO 50 mcg DAILY LOU Administration Labs CBC & Chem 7: 03/04/21 05:46 03/04/21 05:46 Labs: Laboratory Results - last 24 hr 03/03/21 03/03/21 03/03/21 07:39 16:55 20:12 WBC RBC Hgb Hct MCV MCH MCHC RDW Plt Count MPV Absolute Nucleated RBC Nucleated RBC % (auto) Sodium Potassium Chloride Carbon Dioxide Anion Gap BUN Creatinine Estim Creat Clear Calc Estimated GFR POC Glucose 175 H 158 H Random Glucose Calcium Blood Type A Negative Antibody Screen NEGATIVE Crossmatch See Detail 03/04/21 03/04/21 03/04/21 05:46 05:46 07:25 WBC 42.3 H* RBC 2.70 L D Hgb 9.0 L D Hct 27.5 L D MCV 101.9 H MCH 33.3 H MCHC 32.7 RDW 14.5 Plt Count 60 L MPV 11.6 Absolute Nucleated RBC 0.000 Nucleated RBC % (auto) 0.0 Sodium 136 Potassium 4.1 Chloride 113 H Carbon Dioxide 13 L Anion Gap 14 BUN 45 H Creatinine 2.15 H Estim Creat Clear Calc 31.6 Estimated GFR 30 POC Glucose 150 H Random Glucose 184 H D Calcium 7.8 L Blood Type Antibody Screen Crossmatch 03/04/21 11:14 WBC RBC Hgb Hct MCV MCH MCHC RDW Plt Count MPV Absolute Nucleated RBC Nucleated RBC % (auto) Sodium Potassium Chloride Carbon Dioxide Anion Gap BUN Creatinine Estim Creat Clear Calc Estimated GFR POC Glucose 153 H Random Glucose Calcium Blood Type Antibody Screen Crossmatch Microbiology Microbiology Results: Microbiology 03/02/21 00:00 Urine Culture - Final Urine clean catch - Urine kumar top Enterobacter cloacae complex 03/02/21 14:28 Blood Culture - Preliminary Blood - Venous No growth after 24 hours. 03/02/21 14:17 Blood Culture - Preliminary Blood - Venous No growth after 24 hours. Quality Stroke Does the patient have a stroke diagnosis?: No VTE Prior VTE?: No VTE Risk Level:: Medical - moderate - high VTE Device Contraindication: N/A - Device Ordered VTE Drug Contraindication: Treatment Not Indicated Assessment and Plan (1) Hematuria: Status: Acute (2) CRISTOPHER (acute kidney injury): Status: Acute Assessment and Plan: hospital d#3 80 year-old man with CLL, DM2, gout, CKD3, hypothyroidism, hypertension, and BPH admitted with gross hematuria and dysuria after recent Bashir catheterization, found to have UTI # urinary tract infection, Enterobacter cloacae - change pip/treasure to ceftriaxone, can change to cefuroxime upon d/c, total 7d # hypotension - not septic, resolved after fluid resuscitation # hematuria - no heparin, Urology consult pending; likely due to infection + recent catheterization; improving - discussed with pt's oncologist Dr Kim- d/c ibrutinib for now as associated with bleeding # urinary retention # BPH - Urology consult pending. Bashir placed. 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
[2021-03-04] MEDS: Insulin Lispro 100 UNIT/ML 3 ML VIAL SUBCUT ×3 (12:22→21:43)
[2021-03-04] MEDS: cefTRIAXone sodium 1 GM in 0.9 % Sodium Chloride 50 ML IV (12:22)
[2021-03-04 15:45] VITALS: BP 117/56; PULSE 59; RESP 17; TEMP 36.1; O2SAT 95
[2021-03-04 16:42] LABS: Glucose, Whole Blood 173 mg/dL (60-115)
[2021-03-04 20:00] VITALS: BP 130/62; PULSE 56; RESP 18; TEMP 36.4; O2SAT 95
[2021-03-04 20:38] LABS: Glucose, Whole Blood 194 mg/dL (60-115)
[2021-03-04] MEDS: Atorvastatin Calcium 40 MG TABLET PO (21:43)
[2021-03-04] MEDS: Tamsulosin HCL 0.4 MG CAPSULE PO (21:44)
[2021-03-04 23:57] VITALS: BP 116/59; PULSE 51; RESP 16; TEMP 36.6; O2SAT 96
[2021-03-05] MEDS: 0.9 % Sodium Chloride Flush 3 ML SYRINGE IVFLUSH ×2 (00:14→08:18)
[2021-03-05 03:25] VITALS: BP 139/65; PULSE 50; RESP 16; TEMP 36.6; O2SAT 94
[2021-03-05] MEDS: Omeprazole 20 MG CAPSULE.DR PO (06:06)
[2021-03-05] MEDS: Levothyroxine Sodium 175 MCG TABLET PO (06:06)
[2021-03-05 06:33] LABS: Hematocrit 27.6 % (42-52); Hemoglobin 8.8 g/dl (14.0-18.0); Mean Corpuscular HGB Conc 31.9 g/dl (31.0-36.0); Mean Corpuscular Hemoglobin 32.4 pg (27.0-33.0); Mean Corpuscular Volume 101.5 fL (80-98); Mean Platelet Volume 12.5 fL (9.4-12.4); Red Blood Count 2.72 X10*6/uL (4.60-5.80); Red Cell Distribution Width 14.4 % (11.0-16.0)
[2021-03-05 06:49] LABS: Anion Gap 11 (12-20); Blood Urea Nitrogen 38 mg/dL (9-16); Calcium 7.9 mg/dL (8.4-10.2); Carbon Dioxide 17 mmol/L (22-29); Chloride 114 mmol/L (96-108); Estimated Glomerular Filt Rate 34; Glucose Random 151 mg/dL (60-115); Sodium 138 mmol/L (135-145)
[2021-03-05 07:26] LABS: Platelet Count 60 X10*3/uL (160-400); White Blood Count 37.7 X10*3/uL (4.8-10.8)
[2021-03-05 07:52] LABS: Glucose, Whole Blood 133 mg/dL (60-115)
[2021-03-05 08:00] VITALS: BP 140/64; PULSE 57; RESP 18; TEMP 36.9; O2SAT 98
[2021-03-05] MEDS: Metoprolol Succinate ER 12.5 MG HALFTAB.ER.24H PO (08:17)
[2021-03-05] MEDS: Ferrous Sulfate 324 MG TABLET.DR PO (08:17)
[2021-03-05] MEDS: Finasteride 5 MG TABLET PO (08:17)
[2021-03-05] MEDS: allopurinoL 100 MG TABLET PO (08:17)
[2021-03-05] MEDS: Cholecalciferol (Vitamin D3) 25 MCG TABLET 50 MCG PO (08:17)
--- NOTE | 2021-03-05 10:02 | PM.PNNEP ---
Subjective Subjective Date of Service: 03/05/21 Interval history: Retaining urine- PVR 570 mL+; so Bashir placed Urine still blood-tinged but less so Dysuria improved UCx grew Enterobacter cloaecae Tolerated transfusion Physical Exam Vital Signs: Vital Signs: Last Vital Signs Temp 98.5 F 03/05/21 08:00 Pulse 57 03/05/21 08:00 Resp 18 03/05/21 08:00 BP 140/64 H 03/05/21 08:00 Pulse Ox 98 03/05/21 08:00 Body Mass Index 34.2 Const: General: cooperative, healthy appearing and no acute distress Orientation/consciousness: patient oriented x3 Limitations: no limitations HENMT: Head: Yes normal to inspection Ears: hearing grossly normal bilaterally General nose exam: Normal external nose present Face and sinus: Yes normal facial exam Eyes: General: appearance normal, both eyes and all related structures EOM: EOMs intact bilaterally Neck: Neck: Yes normal visual inspection Resp: Effort & Inspection: normal respiratory effort and no respiratory distress Cardio: Rate: regular rate GI: Inspection: Yes normal to inspection Palpation (GI): Soft to palpation, nontender, no guarding and not rigid Skin: Rashes: no rashes Wounds: no wounds Neuro: General: patient oriented x3 Gait exam (Neuro): Normal gait present Extrem: General: Yes normal to inspection Objective Data Labs CBC & Chem 7: 03/05/21 05:40 03/05/21 05:40 Labs: Laboratory Results - last 24 hr 03/04/21 03/04/21 03/04/21 11:14 16:29 20:17 WBC RBC Hgb Hct MCV MCH MCHC RDW Plt Count MPV Absolute Nucleated RBC Nucleated RBC % (auto) Sodium Potassium Chloride Carbon Dioxide Anion Gap BUN Creatinine Estim Creat Clear Calc Estimated GFR POC Glucose 153 H 173 H 194 H Random Glucose Calcium 03/05/21 03/05/21 03/05/21 05:40 05:40 07:48 WBC 37.7 H* RBC 2.72 L Hgb 8.8 L Hct 27.6 L MCV 101.5 H MCH 32.4 MCHC 31.9 RDW 14.4 Plt Count 60 L MPV 12.5 H Absolute Nucleated RBC 0.000 Nucleated RBC % (auto) 0.0 Sodium 138 Potassium 4.0 Chloride 114 H Carbon Dioxide 17 L Anion Gap 11 L BUN 38 H Creatinine 1.89 H Estim Creat Clear Calc 36.0 Estimated GFR 34 POC Glucose 133 H Random Glucose 151 H Calcium 7.9 L Microbiology Microbiology Results: Microbiology 03/02/21 14:28 Blood - Venous Blood Culture - Preliminary No growth after 48 hours. 03/02/21 14:17 Blood - Venous Blood Culture - Preliminary No growth after 48 hours. 03/02/21 00:00 Urine clean catch - Urine kumar top Urine Culture - Final Enterobacter cloacae complex Assessment & Plan Assessment and plan (1) Hematuria: Status: Acute (2) CRISTOPHER (acute kidney injury): Status: Acute Assessment and Plan: hospital d#3 80 year-old man with CLL, DM2, gout, CKD3, hypothyroidism, hypertension, and BPH admitted with gross hematuria and dysuria after recent Bashir catheterization, found to have UTI # urinary tract infection, Enterobacter cloacae - change pip/treasure to ceftriaxone, can change to cefuroxime upon d/c, total 7d # hypotension - not septic, resolved after fluid resuscitation # hematuria - no heparin, Urology consult pending; likely due to infection + recent catheterization; improving - discussed with pt's oncologist Dr Kim- d/c ibrutinib for now as associated with bleeding # urinary retention # BPH - Urology consult pending. Bashir placed. 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
--- NOTE | 2021-03-05 10:12 | W.MHC.F2F ---
Service Date Service Date: 03/05/21 Encounter Date of encounter: 03/05/21 Reasons for Services Signs and symptoms assessed: urinary retention hematuria UTI Reason for detention: medication management, medication treatment, teach disease management and GI/ assessment MD Overseeing Care: Faraz Carrillo Homebound: Leaving the home is medically contraindicated at this time without the asist of a device and/or another person due th the listed conditions above and below. Certification: Based on the above findings, I certify that this patient is confined to the home and needs intermittent detention care, physical therapy and/or speech therapy, or continues to need occupational therapy. The patient is under my care, and I have initiated the establishment of the plan of care. The patient will be followed by a physician who will periodically review the plan of care.
--- NOTE | 2021-03-05 10:13 | PM.DS ---
DS: Providers Provider Date of Service: 03/05/21 Date of admission: 03/02/21 16:14 Primary care physician: Faraz Carrillo MD Consults: 03/02/21 16:19 Consult to Urology Routine Consulting Provider: Olivier Jenkins Reason for consultation: gross hematuria 03/02/21 16:27 Consult to Nephrology Routine Consulting Provider: Sean Rowan Reason for consultation: Cristopher/CKD3 DS: Diagnosis Discharge Diagnosis (1) Hematuria: Status: Acute (2) Urinary retention with incomplete bladder emptying: Status: Acute (3) Urinary tract infection: Status: Acute (4) Acute on chronic kidney failure: Status: Acute (5) CLL (chronic lymphocytic leukemia): Status: Chronic DS: Medications Discharge Medications Home Medications: Home Medications Medication Instructions Recorded Confirmed cholecalciferol (vitamin D3) 50 mcg PO DAILY 06/20/20 03/02/21 [Vitamin D3] ferrous sulfate 325 mg PO BID 06/20/20 03/02/21 omeprazole 20 mg PO BID@0630,1630 06/20/20 03/02/21 Lantus U-100 Insulin 9 unit SUBCUT BID 02/17/21 03/02/21 atorvastatin 40 mg PO BEDTIME 02/17/21 03/02/21 empagliflozin 12.5 mg PO DAILY 02/17/21 03/02/21 insulin aspart U-100 [Novolog 6 unit SUBCUT DAILY@1200 02/17/21 03/02/21 U-100 Insulin aspart] insulin aspart U-100 [Novolog 8 unit SUBCUT DAILY@0730 02/17/21 03/02/21 U-100 Insulin aspart] levothyroxine 175 mcg PO DAILY 02/17/21 03/02/21 meclizine 12.5 mg PO BEDTIME PRN 02/17/21 03/02/21 metoprolol succinate [Toprol XL] 12.5 mg PO DAILY 02/17/21 03/02/21 insulin aspart U-100 4 unit SUBCUT DAILY@1700 03/02/21 03/02/21 Previous Rx's Medication Instructions Recorded finasteride 5 mg tablet 5 mg PO DAILY 90 Days #90 tab 02/23/21 tamsulosin 0.4 mg capsule 0.4 mg PO BEDTIME 90 Days #90 cap 02/23/21 allopurinol 100 mg PO DAILY #30 tab 03/05/21 cefuroxime axetil 250 mg PO BID #14 tab 03/05/21 DS: Summary Hospital Course Hospital Course: from my admission H+P, 03/02/21: Mr Govea is an 80 year-old man with CLL, DM2, gout, CKD3, hypothyroidism, hypertension, and BPH who presents with 2 days of worsening dysuria, urinary urgency, and gross hematuria. He denies flank pain. No fever, chills, nausea, or vomiting. He just had a Bashir catheter, which had been inserted for urinary retention, removed on 02/23/21. This was placed on his prior admission to this hospital 02/17-02/18/21 for CRISTOPHER related to urinary retention; creatinine improved from 2.17 to 1.57 after the Bashir was placed. He was started on tamsulosin and finasteride. However, his SCr increased to 2.41 on 02/24/21. In the ED here, BP was low at 115/40 and went down to 101/34; it improved to 114/50 after 2L of IV normal saline. WBC was 46, down from 98 on 02/24/21. Urinalysis was positive for nitrites and showed pyuria and was grossly bloody. The patient was admitted to the medical/surgical floor. He was given piperacillin/tazobactam IV. He was not, strictly speaking, septic. He was found to have UTI with Enterobacter cloacae. Due to hematuria, ibrutinib, his chemotherapy for CLL, was stopped in consultation with his oncologist. He had recurrent urinary retention and a Bashir had to be replaced. Serum creatinine improved to baseline with IV fluid hydration. He was discharged home with [facility]NA service and should follow up with Primary Care, Urology, and Hematology in 1 week. Repeat labs in 1 week were ordered: CBCD and BMP. He should continue to hold ibrutinib. Allopurinol dose was adjusted for renal dysfunction. Time Spent with Patient Time attestation: Total time spent providing and/or coordinating discharge services: 35 Discharge coordination time: Greater than 30 minutes Quality: Stroke Does the patient have a stroke diagnosis?: No Physical Exam Vital Signs: Vital Signs: Last Vital Signs Temp 98.5 F 03/05/21 08:00 Pulse 57 03/05/21 08:00 Resp 18 03/05/21 08:00 BP 140/64 H 03/05/21 08:00 Pulse Ox 98 03/05/21 08:00 Body Mass Index 34.2 Gen: in no acute distress HEENT: sclera anicteric, moist but pale mucus membranes Neck: supple Lungs: clear to auscultation bilaterally Heart: regular rate and rhythm, no murmurs Abd: soft, obese, non-tender, non-distended : no flank tenderness; Bashir with blood-tinged urine but no clots Ext: trace bilateral lower extremity edema Skin: warm/well-perfused Neuro: alert and oriented x3, no focal findings Psych: appropriate affec DS: Data Data Completed and Pending Completed studies during hospitalization [Text1]: Laboratory Results WBC 37.7 X10*3/uL (4.8-10.8) H* 03/05/21 05:40 RBC 2.72 X10*6/uL (4.60-5.80) L 03/05/21 05:40 Hgb 8.8 g/dl (14.0-18.0) L 03/05/21 05:40 Hct 27.6 % (42-52) L 03/05/21 05:40 MCV 101.5 fL (80-98) H 03/05/21 05:40 MCH 32.4 pg (27.0-33.0) 03/05/21 05:40 MCHC 31.9 g/dl (31.0-36.0) 03/05/21 05:40 RDW 14.4 % (11.0-16.0) 03/05/21 05:40 Plt Count 60 X10*3/uL (160-400) L 03/05/21 05:40 MPV 12.5 fL (9.4-12.4) H 03/05/21 05:40 Immature Gran % (Auto) 0.1 % (0.0-0.4) 03/02/21 10:25 Neut % (Auto) 7.1 % (45-73) L 03/02/21 10:25 Lymph % (Auto) 90.9 % (20-40) H 03/02/21 10:25 [place] % (Auto) 1.7 % (2-11) L 03/02/21 10:25 Eos % (Auto) 0.0 % (0-4) 03/02/21 10:25 Baso % (Auto) 0.2 % (0-2) 03/02/21 10:25 Lymph # (Auto) 41.8 X10*3/uL (1.2-4.9) H 03/02/21 10:25 [place] # (Auto) 0.8 X10*3/uL (0.1-1.2) 03/02/21 10:25 Eos # (Auto) 0.0 X10*3/uL (0.0-0.4) 03/02/21 10:25 Baso # (Auto) 0.1 X10*3/uL (0.0-0.2) 03/02/21 10:25 Abs Immat Gran (auto) 0.06 X10*3/uL (0.00-0.03) H 03/02/21 10:25 Absolute Neuts (auto) 3.2 X10*3/uL (2.0-8.3) 03/02/21 10:25 Absolute Nucleated RBC 0.000 X10*3/uL (0.0-0.012) 03/05/21 05:40 Nucleated RBC % (auto) 0.0 /100WBC (0.0-0.2) 03/05/21 05:40 Smear Tech's Comments VERIFIED 03/02/21 10:25 Absolute Retic 0.024 X10*6/uL (0.026-0.095) L 03/03/21 05:50 Percent Retic 1.2 % (0.5-1.8) 03/03/21 05:50 Immature Retic Fraction 21.1 % (2.3-13.4) H 03/03/21 05:50 Retic Hgb Equivalent 32.0 pg (30.0-35.0) 03/03/21 05:50 PT 14.2 SEC (9.9-13.0) H 03/02/21 10:25 INR 1.2 (0.9-1.1) H 03/02/21 10:25 APTT 34.0 SEC (24.1-38.0) 03/02/21 10:25 Sodium 138 mmol/L (135-145) 03/05/21 05:40 Potassium 4.0 mmol/L (3.3-5.1) 03/05/21 05:40 Chloride 114 mmol/L (96-108) H 03/05/21 05:40 Carbon Dioxide 17 mmol/L (22-29) L 03/05/21 05:40 Anion Gap 11 (12-20) L 03/05/21 05:40 BUN 38 mg/dL (9-16) H 03/05/21 05:40 Creatinine 1.89 mg/dL (0.5-1.4) H 03/05/21 05:40 Estim Creat Clear Calc 36.0 03/05/21 05:40 Estimated GFR 34 03/05/21 05:40 POC Glucose 133 mg/dL (60-115) H 03/05/21 07:48 Random Glucose 151 mg/dL (60-115) H 03/05/21 05:40 Lactic Acid 1.1 mmol/L (0.5-2.0) 03/02/21 14:28 Calcium 7.9 mg/dL (8.4-10.2) L 03/05/21 05:40 Iron 29 mcg/dL (45-160) L 03/03/21 05:50 TIBC 169 mcg/dL (228-428) L 03/03/21 05:50 % Saturation 17 % (15-50) 03/03/21 05:50 Unsat Iron Binding 140 ug/dL 03/03/21 05:50 Vitamin B12 393 pg/mL (200-900) 03/03/21 05:50 Folate 13.7 ng/mL (> or = 4.0) 03/03/21 05:50 Urine Color RED 03/02/21 12:35 Urine Appearance TURBID 03/02/21 12:35 Urine pH 5.0 (5.0-8.0) 03/02/21 12:35 Ur Specific [place] 1.020 (1.005-1.025) 03/02/21 12:35 Urine Protein 3+ MG/DL (NEG-TRACE) H 03/02/21 12:35 Urine Glucose (UA) 500 MG/DL (NEG) H 03/02/21 12:35 Urine Ketones SEE NOTE MG/DL (NEG) 03/02/21 12:35 Urine Blood 3+ (NEG) H 03/02/21 12:35 Urine Nitrite POS (NEG) H 03/02/21 12:35 Ur Leukocyte Esterase 2+ (NEG) H 03/02/21 12:35 Urine RBC TNTC /HPF (0) H 03/02/21 12:35 Urine WBC TNTC /HPF (0-4) H 03/02/21 12:35 Ur Squamous Epith Cells Not Reportable 03/02/21 12:35 Urine Bacteria 3+ /LPF 03/02/21 12:35 COVID-19 (YOVANI) Negative (Negative) 03/02/21 11:17 COVID-19 Clin Com See Note 03/02/21 11:17 Blood Type A Negative 03/03/21 07:39 Antibody Screen NEGATIVE 03/03/21 07:39 Crossmatch See Detail 03/03/21 07:39 Impressions Renal Ultrasound 03/02/21 17:57 IMPRESSION: No hydronephrosis. Discharge Plan Discharge Patient Disposition: Home Health Service Discharge Diagnosis: urinary tract infection, urinary retention, hematuria, acute/chronic kidney injury Referrals: Olivier Jenkins MD [Physician] - 1 Week Rupa Kim MD [Physician] - 1 Week Faraz Carrillo MD [Physician] - 1 Week Discharge Medications: New allopurinol 100 mg tablet 100 mg PO DAILY Qty: 30 RF: 0 cefuroxime axetil 250 mg tablet 250 mg PO BID Qty: 14 RF: 0 Continued levothyroxine 175 mcg Tablet 175 mcg PO DAILY RF: 0 atorvastatin 80 mg Tablet 40 mg PO BEDTIME RF: 0 Lantus U-100 Insulin 100 unit/mL Solution 9 unit SUBCUT BID RF: 0 meclizine 12.5 mg Tablet 12.5 mg PO BEDTIME PRN (Reason: Dizziness) RF: 0 insulin aspart U-100 [Novolog U-100 Insulin aspart] 100 unit/mL Solution 8 unit SUBCUT DAILY@0730 RF: 0 insulin aspart U-100 [Novolog U-100 Insulin aspart] 100 unit/mL Solution 6 unit SUBCUT DAILY@1200 RF: 0 metoprolol succinate [Toprol XL] 25 mg Tablet Extended Release 24 Hr 12.5 mg PO DAILY RF: 0 empagliflozin 25 mg Tablet 12.5 mg PO DAILY RF: 0 insulin aspart U-100 100 unit/mL Solution 4 unit SUBCUT DAILY@1700 RF: 0 ferrous sulfate 325 mg (65 mg iron) Tablet 325 mg PO BID RF: 0 omeprazole 20 mg Tablet,Delayed Release (Dr/Ec) 20 mg PO BID@0630,1630 RF: 0 cholecalciferol (vitamin D3) [Vitamin D3] 50 mcg (2,000 unit) Tablet 50 mcg PO DAILY RF: 0 tamsulosin 0.4 mg capsule 0.4 mg PO BEDTIME 90 Days Qty: 90 RF: 1 finasteride [Proscar] 5 mg tablet 5 mg PO DAILY 90 Days Qty: 90 RF: 1 Discontinued allopurinol 300 mg Tablet 300 mg PO DAILY RF: 0 Imbruvica 140 mg Capsule 420 mg PO DAILY Qty: 90 RF: 3 Discharge Orders: Discharge Order (Routine); Ordered 03/05/21 Ordered By: Romulo Friedman Diet: diabetic diet Activity on Discharge: As tolerated Stand Alone Forms: Patient Portal Discharge page Other Ambulatory Orders: Basic Metabolic Panel (Routine) Timeframe: 1 Week Facility: [facility] - Location: Laboratory Ordered By: Romulo Friedman Complete Blood Count Auto Diff (Routine) Timeframe: 1 Week Facility: [facility] - Location: Laboratory Ordered By: Romulo Friedman Care Plan Goals: treatment of infection, resolution of hematuria, prevention of worsening kidney disease Health Concerns: urinary tract infection, urinary retention, hematuria, acute/chronic kidney injury Plan of Treatment: take cefuroxime 250 mg twice daily for 7 days keep Bashir in place and follow up with Dr Jenkins [Urology] in 1 week stop Imbruvica and follow up with Dr Kim [Oncology] in 1 week recheck labs in 1 week: CBCD, BMP reduce allopurinol dose from 300 mg to 100 mg daily due to renal insufficiency see your primary care doctor in 1 week Assessment: as above Patient Instructions: Hematuria (GEN)
--- NOTE | 2021-03-05 10:16 | MHC.CM.PN ---
Addendum entered by Sabine Dixon 03/05/21 10:29: CORRECTION; PATIENT MADE AWARE THAT HOSPITALIST PREFERS PATIENT TO DC HOME WITH VNA SERVICES. REFERRAL PLACED TO [facility] IF AGENCY IS ABLE TO OFFER, PCP WILL NEED TO BE VERIFIED. INSTRUCTIONS WRITTEN IN PATIENT'S DISCHARGE PACKET Original Note: PATIENT IS DISCHARGED HOME WITH NO NEED FOR SERVICES. HIS CAR IS IN THE LOT AND HE FEELS HE IS SAFE TO DRIVE HOME. IMM 03/05 IN CHART.
--- NOTE | 2021-03-05 11:28 | MHC.CM.PN ---
DR GEORGES WILL BE IN THIS AFTERNOON TO WRITE [facility] ORDERS. INSTRUCTIONS TO BE SENT TO [facility] THROUGH [employer].
[2021-03-05 11:33] LABS: Glucose, Whole Blood 182 mg/dL (60-115)
[2021-03-05] MEDS: Insulin Lispro 100 UNIT/ML 3 ML VIAL SUBCUT (11:46)
[2021-03-05] MEDS: cefTRIAXone sodium 1 GM in 0.9 % Sodium Chloride 50 ML IV (11:46)
[2021-03-05 12:00] VITALS: BP 144/65; PULSE 57; RESP 16; TEMP 36.9; O2SAT 95
--- NOTE | 2021-03-07 09:32 | MHC.CM.PN ---
POST DISCHARGE NOTE THIS REAL ESTATE UNDERWRITER SPOKE WITH [facility] NURSE. PER CONVERSATION, IF DOCTOR DESTINI'S [facility] NOTE/INSTRUCTIONS ARE NOT IN YET, [facility] WILL CONTACT HIS OFFICE DIRECTLY. REFERRAL NOW CLOSED OUT.
== END 2021-03-05 13:08 | disposition home health service (06) | DRG 690 ==
LOC: HO.ED 12:37 → HO.EDOVER 17:01 → HO.S3 19:38
PROVIDERS: Physician Assistant; Admitting Provider Family Medicine; Emergency Provider Emergency Medicine; Visit Provider Family Medicine
DX: N39.0 Urinary tract infection, site not specified (principal); N17.9 Acute kidney failure, unspecified; C91.10 Chronic lymphocytic leukemia of B-cell type not having achieved remission; I12.9 Hypertensive chronic kidney disease with stage 1 through stage 4 chronic kidney disease, or unspecified chronic kidney disease; E11.22 Type 2 diabetes mellitus with diabetic chronic kidney disease; E03.9 Hypothyroidism, unspecified; D63.1 Anemia in chronic kidney disease; I95.9 Hypotension, unspecified; N18.30 Chronic kidney disease, stage 3 unspecified; E78.5 Hyperlipidemia, unspecified; K21.9 Gastro-esophageal reflux disease without esophagitis; M10.9 Gout, unspecified; N40.1 Benign prostatic hyperplasia with lower urinary tract symptoms; R33.8 Other retention of urine; D69.6 Thrombocytopenia, unspecified; B95.2 Enterococcus as the cause of diseases classified elsewhere; K75.81 Nonalcoholic steatohepatitis (NASH); K74.60 Unspecified cirrhosis of liver; R31.0 Gross hematuria; T45.1X5A Adverse effect of antineoplastic and immunosuppressive drugs, initial encounter; Y92.9 Unspecified place or not applicable; Z20.822 Contact with and (suspected) exposure to COVID-19; Z79.4 Long term (current) use of insulin; Z79.890 Hormone replacement therapy; Z79.899 Other long term (current) drug therapy
CPT/HCPCS: 36415; 76775; 80048; 81001; 81003; 82607; 82746; 82947; 83540; 83605; 85025; 85027; 85045; 85610; 85730; 86850; 86900; 86901; 86923; 87040; 87086; 87088; 87186; 87635; 97161; 99285; C1758; J0696; J2543; P9016

== ENCOUNTER 2021-03-13 07:46 | Outpatient (REF) | payer MEDICARE, SELFPAY ==
[2021-03-13 08:34] LABS: PLT CLUMP 1
[2021-03-13 08:36] LABS: Hematocrit 30.3 % (42-52); Hemoglobin 9.6 g/dl (14.0-18.0); Mean Corpuscular HGB Conc 31.7 g/dl (31.0-36.0); Mean Corpuscular Hemoglobin 32.5 pg (27.0-33.0); Mean Corpuscular Volume 102.7 fL (80-98); Mean Platelet Volume 11.8 fL (9.4-12.4); Red Blood Count 2.95 X10*6/uL (4.60-5.80); Red Cell Distribution Width 14.7 % (11.0-16.0)
[2021-03-13 08:47] LABS: Platelet Count 78 X10*3/uL (160-400); WBC ABN SCTR FOR CBC 1
[2021-03-13 08:56] LABS: Anion Gap 12 (12-20); Blood Urea Nitrogen 20 mg/dL (9-16); Calcium 8.5 mg/dL (8.4-10.2); Carbon Dioxide 20 mmol/L (22-29); Chloride 112 mmol/L (96-108); Estimated Glomerular Filt Rate 51; Glucose Random 155 mg/dL (60-115); Potassium 4.3 mmol/L (3.3-5.1); Sodium 140 mmol/L (135-145)
[2021-03-13 09:26] LABS: Band Neutrophils Percent 0 % (3-5); Lymphocytes Percent Manual 92 % (20-40); Neutrophils Percent Manual 8 % (45-73)
[2021-03-13 09:27] LABS: Hypochromasia 1+ (5-14) /OIF; Macrocytosis 1+ (5-14) /OIF; Ovalocytes 1+ (5-14) /OIF; Platelet Estimate DECREASED (NORMAL); Platelet Morphology Comment NORMAL; RBC Morphology NOTED; Smudge Cells PRESENT
[2021-03-13 09:32] LABS: Lymphocytes Absolute Manual 44.2 X10*3/uL (0.6-4.8); Neutrophils Absolute Manual 3.8 X10*3/uL (2.2-7.9)
== END 2021-03-13 07:47 | disposition home or self-care (01) ==
LOC: HO.LAB 07:46
PROVIDERS: PCP Internal Medicine; Visit Provider Family Medicine
DX: N17.9 Acute kidney failure, unspecified (principal)
CPT/HCPCS: 36415; 80048; 85007; 85027

== ENCOUNTER → 2021-03-14 09:00 | Outpatient (BNVA) | payer MEDICARE, SELFPAY | DX: N39.0 Urinary tract infection, site not specified (principal); R33.9 Retention of urine, unspecified | CPT/HCPCS: 51700; 99212 ==

== ENCOUNTER → 2021-03-30 08:27 | Outpatient (BNVA) | payer MEDICARE, SELFPAY | DX: R33.9 Retention of urine, unspecified (principal) | CPT/HCPCS: 51700; 51798; 99212 ==

== ENCOUNTER → 2021-04-13 09:18 | Outpatient (BNVA) | payer OTHER, SELFPAY | DX: R33.9 Retention of urine, unspecified (principal) | CPT/HCPCS: 51798 ==

== ENCOUNTER → 2021-04-20 08:30 | Outpatient (BNVA) | payer OTHER, SELFPAY | PROVIDERS: Visit Provider Internal Medicine Cardiovascular Disease | DX: I44.4 Left anterior fascicular block (principal); I44.0 Atrioventricular block, first degree; I10 Essential (primary) hypertension; C91.10 Chronic lymphocytic leukemia of B-cell type not having achieved remission | CPT/HCPCS: 99212 ==

== ENCOUNTER 2021-05-08 10:20 | Outpatient (RCR) | payer MEDICARE, SELFPAY ==
[2020-06-20 08:19] VITALS: BP 114/56; PULSE 69; RESP 20; TEMP 36.4; O2SAT 95
[2020-06-20 08:24] VITALS: BMI 36.9
--- NOTE | 2020-06-20 08:24 | PM.HEMONCPN ---
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 He has had intermittent mild thrombocytopenia. Bone marrow biopsy performed by Dr. Wong in June 2016 demonstrated hypercellular bone marrow with active trilineage hematopoiesis, increased number of small lymphocytes, 51% of cells, findings consistent with CLL. 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 Flow cytometry revealed normal B cells that coexpressed CD5, CD23 in surface lambda light chain comprising 84% of lymphocytes; CD [address] abdomen/pelvis with contrast performed 09/06/17 showed cirrhotic liver, 1.2x1.9 cm low attenuation lesion in the right lobe of liver. Splenomegaly, diffuse lower chest and upper abdominal lymphadenopathy, largest lymph node in the precaval region measuring 1.4x3.4 cm. Family history of cancer. Genetic testing denied by insurance carrier. Interval History Interval history: Patient is here in follow-up. He is doing very well, denies any complaints such as fever, chills, night sweats or unexplained weight loss. He is trying to lose weight, he thinks he may have lost 2 lb by cutting back sugars. He denies any history of infections. He received the flu and pneumonia vaccine. He has not been started on any new medications. He denies any chest pain, shortness of breath, cough, swelling in his neck or axilla. No leg swelling, orthopnea or PND. No cough or shortness of breath. No change in bowel habits. Review of Systems - Constitutional Reports no additional constitutional complaints - Cardiovascular Reports no additional cardiovascular complaints - Respiratory Reports no additional respiratory complaints [facility] Medical History: Medical History (Last Updated 06/20/20 @ 08:27 by Rupa Kim MD) Chronic renal insufficiency CLL (chronic lymphocytic leukemia) Diabetes mellitus First degree AV block GERD (gastroesophageal reflux disease) Gout Hyperlipidemia Hypertension Hypothyroid Left anterior fascicular block Pulmonary nodule Skin cancer Thyroid cancer Family History: Family History (Last Updated 06/20/20 @ 08:[address]) Father No problems noted. Mother Breast cancer DVT (deep venous thrombosis) Brother Intestinal cancer Sister Breast cancer Sister Breast cancer Surgical History: Surgical History (Last Updated 06/20/20 @ 08:27 by Rupa Kim MD) H/O thyroidectomy History of knee replacement procedure of left knee Onset Date: ~1994 History of rickets Smoking status: Never smoker Alcohol intake: never Oncology Screenings - Immunizations Influenza Immunization Status: Up To Date Pneumoccocal Immunization Status: Up To Date - ECOG Performance Status ECOG Performance Status: 1 Home Medications and Allergies Home Medications Medication Instructions Recorded Confirmed Type allopurinol 300 mg PO BID 06/20/20 06/20/20 History atorvastatin 40 mg PO DAILY 06/20/20 06/20/20 History cholecalciferol (vitamin D3) 50 mcg PO DAILY 06/20/20 06/20/20 History [Vitamin D3] ferrous sulfate 325 mg PO DAILY 06/20/20 06/20/20 History insulin aspart U-100 [Novolog 1 sliding scale dose SUBCUT 06/20/20 06/20/20 History U-100 Insulin aspart] USEASDIRECTD levothyroxine 15 mcg PO DAILY 06/20/20 06/20/20 History omeprazole 20 mg PO DAILY 06/20/20 06/20/20 History valsartan 320 mg PO DAILY 06/20/20 06/20/20 History Allergies Allergy/AdvReac Type Severity Reaction Status Date / Time indomethacin [INDOMETHACIN] Allergy Unknown BLOODY Verified 06/13/20 10:17 STOOLS- TOLD NEVER TO TAKE Exam Vital signs: Vital Signs Temp 97.5 F 06/20/20 08:19 Pulse 69 06/20/20 08:19 Resp 20 06/20/20 08:19 BP 114/56 L 06/20/20 08:19 Pulse Ox 95 06/20/20 08:19 - Constitutional Present: no acute distress - Routine HEENT Exam Head: Present: normal inspection Eye: Present: EOMI - Routine Neck Exam Present: full ROM, normal inspection. Absent: lymphadenopathy - Routine Respiratory Exam Present: CTAB - Routine Cardiovascular Exam Cardiovascular: Present: RRR, S1, S2 - Routine Abdominal Exam Present: distended, soft. Absent: mass - Routine Skin Exam Present: intact. Absent: cyanosis, erythema Data - Labs CBC & Chem 7: 06/20/20 08:25 06/20/20 08:25 Progress Note: A/P (1) CLL (chronic lymphocytic leukemia) Status: Acute Assessment and plan: 1. This is an 79-year-old male with chronic lymphocytic leukemia, CLL, clinical stage 0. He has lymphocytosis, no significant anemia or thrombocytopenia. Bone marrow biopsy performed in June 2016 confirms the diagnosis. CD 38 negative which is associated with good prognosis. FISH for CLL showed no TP53 mutation/deletion 17 P. 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 He continues to be asymptomatic, no B symptoms. He has worsening leukocytosis. CT abdomen/pelvis shows slight increase in lymphadenopathy but he is asymptomatic from this. Serum immunofixation shows suppressed immunoglobulin levels but no monoclonal protein. 2. Liver cirrhosis. Hepatitis serologies negative, AFP not elevated, liver enzymes normal. Probably related to LEO. Abdomen MRI performed September 2017 showed cirrhotic liver, single 1.3 cm enhancing lesion which did not show features of HCC. He remains asymptomatic and his blood work is stable. He received flu and pneumonia vaccinations. Follow-up in 2 months. He was advised to call sooner if he develops any new symptoms. - Time Spent With Patient Total time spent is greater than 50% in coordination of care (as documented) at patient's floor/unit and/or counseling patient: 15 - 24 minutes
[2020-06-20 08:56] LABS: Hematocrit 32.8 % (42-52); Hemoglobin 10.8 g/dl (14.0-18.0); Mean Corpuscular HGB Conc 32.9 g/dl (31.0-36.0); Mean Corpuscular Volume 100.3 fL (80-98); Mean Platelet Volume 10.9 fL (9.4-12.4); Red Blood Count 3.27 X10*6/uL (4.60-5.80); Red Cell Distribution Width 13.3 % (11.0-16.0)
[2020-06-20 09:01] LABS: Platelet Count 77 X10*3/uL (160-400); WBC ABN SCTR FOR CBC 1
[2020-06-20 09:32] LABS: Alanine Aminotransferase 25 U/L (0-40); Albumin Level 3.8 g/dL (3.5-5.0); Alkaline Phosphatase 91 U/L (39-117); Anion Gap 10 (12-20); Aspartate Amino Transferase 31 U/L (5-37); Bilirubin Total 0.3 mg/dL (0.0-1.0); Blood Urea Nitrogen 25 mg/dL (9-16); Carbon Dioxide 25 mmol/L (22-29); Chloride 110 mmol/L (96-108); Creatinine Clr Calc Pharmacy 48.6; Estimated Glomerular Filt Rate 46; Glucose Random 177 mg/dL (60-115); Potassium 4.3 mmol/l (3.3-5.1); Sodium 141 mmol/L (135-145); Total Protein 5.6 g/dL (6.5-8.0)
[2020-06-20 10:13] LABS: Band Neutrophils Percent 0 % (3-5); Lymphocytes Absolute Manual 38.2 X10*3/uL (0.6-4.8); Lymphocytes Percent Manual 93 % (20-40); Monocytes Absolute Manual 0.4 X10*3/uL (0.0-1.2); Monocytes Percent Manual 1 % (2-11); Neutrophils Absolute Manual 2.5 X10*3/uL (2.2-7.9); Neutrophils Percent Manual 6 % (45-73)
[2020-06-20 10:15] LABS: Macrocytosis 1+; Platelet Estimate DECREASED (NORMAL); Platelet Morphology Comment NORMAL; RBC Morphology NOTED
[2020-06-20 10:16] LABS: Smudge Cells PRESENT
[2020-06-20 12:28] LABS: White Blood Count 41.1 X10*3/uL (4.8-10.8)
--- NOTE | 2020-06-20 12:59 | MHC.HEMONCSW ---
PT IS AN 79 Y.O. , MALE. HE IS INDEPENDENT, REPORTS COPING WELL. NO COMMUNITY SERVICES INVOLVED NOR WANTED OR NEEDED. DIAGNOSIS IS CLL. GOOD SUPPORT SYSTEM IS IN PLACE. EDUCATION, GUIDANCE, RESOURCES AND SUPPORT PROVIDED. PT IS AWARE OF MY AVAILABILITY.
[2020-06-20 15:00] LABS: Lactate Dehydrogenase 217 U/L (118-273)
[2020-08-29 08:16] VITALS: BP 147/67; PULSE 66; RESP 12; TEMP 36.2; O2SAT 97; BMI 37.0
--- NOTE | 2020-08-29 08:49 | MHC.HEMONCMA ---
Patient came in for a follow up, states that he is feeling well. Eating, drinking and sleeping ok. Medications and allergies were reviewed. He had bloodwork done, will come back for a follow up.
[2020-08-29 08:51] LABS: Lactate Dehydrogenase 238 U/L (118-273)
[2020-08-29 09:14] LABS: Mean Corpuscular HGB Conc 32.8 g/dl (31.0-36.0); PLT CLUMP 1
[2020-08-29 09:16] LABS: Hematocrit 31.4 % (42-52); Hemoglobin 10.3 g/dl (14.0-18.0); Mean Corpuscular Hemoglobin 33.2 pg (27.0-33.0); Mean Corpuscular Volume 101.3 fL (80-98); Mean Platelet Volume 10.7 fL (9.4-12.4)
[2020-08-29 09:18] LABS: Platelet Count 86 X10*3/uL (160-400); WBC ABN SCTR FOR CBC 1
[2020-08-29 09:20] LABS: White Blood Count 54.5 X10*3/uL (4.8-10.8)
[2020-08-29 09:33] LABS: Alanine Aminotransferase 25 U/L (0-40); Albumin Level 3.9 g/dL (3.5-5.0); Alkaline Phosphatase 93 U/L (39-117); Anion Gap 12 (12-20); Aspartate Amino Transferase 27 U/L (5-37); Bilirubin Total 0.5 mg/dL (0.0-1.0); Blood Urea Nitrogen 29 mg/dL (9-16); Calcium 8.4 mg/dL (8.4-10.2); Carbon Dioxide 24 mmol/L (22-29); Chloride 110 mmol/L (96-108); Creatinine Clr Calc Pharmacy 51.8; Estimated Glomerular Filt Rate 49; Glucose Random 142 mg/dL (60-115); Potassium 4.5 mmol/l (3.3-5.1); Sodium 141 mmol/L (135-145); Total Protein 5.8 g/dL (6.5-8.0)
--- NOTE | 2020-08-29 10:06 | P.PNHO_ITS ---
Medical Summary - Medical Summary Date of Service: 08/29/20 Chief complaint: Follow-up Medical Summary: Diagnosed with CLL 2015 based on lymphocytic leukocytosis that has been present since 2007. He has had intermittent mild thrombocytopenia. Bone marrow biopsy performed by Dr. Wong in June 2016 demonstrated hypercellular bone marrow with active trilineage hematopoiesis, increased number of small lymphocytes, 51% of cells, findings consistent with CLL. 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 Flow cytometry revealed normal B cells that coexpressed CD5, CD23 in surface lambda light chain comprising 84% of lymphocytes; CD [address] abdomen/pelvis with contrast performed 09/06/17 showed cirrhotic liver, 1.2x1.9 cm low attenuation lesion in the right lobe of liver. Splenomegaly, diffuse lower chest and upper abdominal lymphadenopathy, largest lymph node in the precaval region measuring 1.4x3.4 cm. Family history of cancer. Genetic testing denied by insurance carrier. Interval History Interval history: Patient is here in follow-up. He continues to do well and has no new complaints today. He does not walk as much because of his knees. He thinks he has lost 2 lb based on his home scales. His appetite is good. He denies any fever, chills, fatigue, recent infections, abdominal pain or change in bowel habits. N o headache or dizziness. Review of Systems - Constitutional Reports no additional constitutional complaints - Cardiovascular Reports no additional cardiovascular complaints - Respiratory Reports no additional respiratory complaints [facility] Medical History: Medical History (Last Updated 06/20/20 @ 08:27 by Rupa Kim MD) Chronic renal insufficiency CLL (chronic lymphocytic leukemia) Diabetes mellitus First degree AV block GERD (gastroesophageal reflux disease) Gout Hyperlipidemia Hypertension Hypothyroid Left anterior fascicular block Pulmonary nodule Skin cancer Thyroid cancer Family History: Family History (Last Updated 06/20/20 @ 08:[address]) Father No problems noted. Mother Breast cancer DVT (deep venous thrombosis) Brother Intestinal cancer Sister Breast cancer Sister Breast cancer Surgical History: Surgical History (Last Updated 06/20/20 @ 08:27 by Rupa Kim MD) H/O thyroidectomy History of knee replacement procedure of left knee Onset Date: ~1994 History of rickets Smoking status: Never smoker Oncology Screenings - ECOG Performance Status ECOG Performance Status: 1 Home Medications and Allergies Home Medications Medication Instructions Recorded Confirmed Type allopurinol 300 mg PO BID 06/20/20 06/20/20 History atorvastatin 40 mg PO DAILY 06/20/20 06/20/20 History cholecalciferol (vitamin D3) 50 mcg PO DAILY 06/20/20 06/20/20 History [Vitamin D3] ferrous sulfate 325 mg PO DAILY 06/20/20 06/20/20 History insulin aspart U-100 [Novolog 1 sliding scale dose SUBCUT 06/20/20 06/20/20 History U-100 Insulin aspart] USEASDIRECTD levothyroxine 15 mcg PO DAILY 06/20/20 06/20/20 History omeprazole 20 mg PO DAILY 06/20/20 06/20/20 History valsartan 320 mg PO DAILY 06/20/20 06/20/20 History Allergies Allergy/AdvReac Type Severity Reaction Status Date / Time indomethacin [INDOMETHACIN] Allergy Unknown BLOODY Verified 06/13/20 10:17 STOOLS- TOLD NEVER TO TAKE Exam Vital signs: Vital Signs Temp 97.2 F 08/29/20 08:16 Pulse 66 08/29/20 08:16 Resp 12 08/29/20 08:16 BP 147/67 H 08/29/20 08:16 Pulse Ox 97 08/29/20 08:16 Intake & Output 08/28/20 08/29/20 08/29/20 18:59 06:59 18:59 Other: Weight 114 kg Weight 114 kg Body Mass Index 37.0 - Constitutional Present: no acute distress - Routine HEENT Exam Head: Present: normal inspection - Routine Neck Exam Present: full ROM, normal inspection. Absent: lymphadenopathy - Routine Respiratory Exam Present: CTAB - Routine Cardiovascular Exam Cardiovascular: Present: RRR, S1, S2 - Routine Abdominal Exam Present: distended, soft. Absent: mass - Routine Skin Exam Present: intact. Absent: cyanosis, erythema Data - Labs CBC & Chem 7: 08/29/20 08:55 08/29/20 08:55 Labs: 06/20/20 08:25 Complete Blood Count Man Dif Routine Lactate Dehydrogenase Routine 06/20/20 08:25 Comprehensive Met. Panel Routine 06/20/20 14:51 Add Laboratory Test Stat 08/29/20 08:07 Lactate Dehydrogenase Routine 08/29/20 08:55 Comprehensive Met. Panel Routine Laboratory Last Values WBC 54.5 X10*3/uL (4.8-10.8) H* 08/29/20 08:55 RBC 3.10 X10*6/uL (4.60-5.80) L 08/29/20 08:55 Hgb 10.3 g/dl (14.0-18.0) L 08/29/20 08:55 Hct 31.4 % (42-52) L 08/29/20 08:55 MCV 101.3 fL (80-98) H 08/29/20 08:55 MCH 33.2 pg (27.0-33.0) H 08/29/20 08:55 MCHC 32.8 g/dl (31.0-36.0) 08/29/20 08:55 RDW 14.0 % (11.0-16.0) 08/29/20 08:55 Plt Count 86 X10*3/uL (160-400) L 08/29/20 08:55 MPV 10.7 fL (9.4-12.4) 08/29/20 08:55 Immature Gran % (Auto) Cancelled 08/29/20 08:55 Neut % (Auto) Cancelled 08/29/20 08:55 Lymph % (Auto) Cancelled 08/29/20 08:55 [place] % (Auto) Cancelled 08/29/20 08:55 Eos % (Auto) Cancelled 08/29/20 08:55 Baso % (Auto) Cancelled 08/29/20 08:55 Lymph # (Auto) Cancelled 08/29/20 08:55 [place] # (Auto) Cancelled 08/29/20 08:55 Eos # (Auto) Cancelled 08/29/20 08:55 Baso # (Auto) Cancelled 08/29/20 08:55 Abs Immat Gran (auto) Cancelled 08/29/20 08:55 Absolute Neuts (auto) Cancelled 08/29/20 08:55 Absolute Nucleated RBC 0.000 X10*3/uL (0.0-0.012) 08/29/20 08:55 Nucleated RBC % (auto) 0.0 /100WBC (0.0-0.2) 08/29/20 08:55 Neutrophils % (Manual) 6 % (45-73) L 06/20/20 08:25 Band Neutrophils % 0 % (3-5) L 06/20/20 08:25 Lymphocytes % (Manual) 93 % (20-40) H 06/20/20 08:25 Monocytes % (Manual) 1 % (2-11) L 06/20/20 08:25 Abs Neuts (Manual) 2.5 X10*3/uL (2.2-7.9) 06/20/20 08:25 Lymphocytes # (Manual) 38.2 X10*3/uL (0.6-4.8) H 06/20/20 08:25 Monocytes # (Manual) 0.4 X10*3/uL (0.0-1.2) 06/20/20 08:25 Smudge Cells PRESENT 06/20/20 08:25 Platelet Estimate DECREASED (NORMAL) 06/20/20 08:25 Plt Morphology Comment NORMAL 06/20/20 08:25 RBC Morphology NOTED 06/20/20 08:25 Macrocytosis 1+ 06/20/20 08:25 Sodium 141 mmol/L (135-145) 08/29/20 08:55 Potassium 4.5 mmol/l (3.3-5.1) 08/29/20 08:55 Chloride 110 mmol/L (96-108) H 08/29/20 08:55 Carbon Dioxide 24 mmol/L (22-29) 08/29/20 08:55 Anion Gap 12 (12-20) 08/29/20 08:55 BUN 29 mg/dL (9-16) H 08/29/20 08:55 Creatinine 1.39 mg/dL (0.5-1.4) 08/29/20 08:55 Estim Creat Clear Calc 51.8 08/29/20 08:55 Estimated GFR 49 08/29/20 08:55 Random Glucose 142 mg/dL (60-115) H 08/29/20 08:55 Calcium 8.4 mg/dL (8.4-10.2) 08/29/20 08:55 Total Bilirubin 0.5 mg/dL (0.0-1.0) 08/29/20 08:55 AST 27 U/L (5-37) 08/29/20 08:55 ALT 25 U/L (0-40) 08/29/20 08:55 Alkaline Phosphatase 93 U/L (39-117) 08/29/20 08:55 Lactate Dehydrogenase 238 U/L (118-273) 08/29/20 08:07 Total Protein 5.8 g/dL (6.5-8.0) L 08/29/20 08:55 Albumin 3.9 g/dL (3.5-5.0) 08/29/20 08:55 Progress Note: A/P (1) CLL (chronic lymphocytic leukemia) Status: Acute Assessment and plan: . This is an 79-year-old male with chronic lymphocytic leukemia, CLL, clinical stage 0. He has lymphocytosis, no significant anemia or thrombocytopenia. Bone marrow biopsy performed in June 2016 confirms the diagnosis. CD 38 negative which is associated with good prognosis. FISH for CLL showed no TP53 mutation/deletion 17 P. 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 He continues to be asymptomatic, no B symptoms. He has worsening leukocytosis. CT abdomen/pelvis shows slight increase in lymphadenopathy but he is asymptomatic from this. Serum immunofixation shows suppressed immunoglobulin levels but no monoclonal protein. 2. Liver cirrhosis. Hepatitis serologies negative, AFP not elevated, liver enzymes normal. Probably related to LEO. Abdomen MRI performed September 2017 showed cirrhotic liver, single 1.3 cm enhancing lesion which did not show features of HCC. He is doing well, WBC shows slight increase but hemoglobin and platelets are stable. He has no B symptoms. Follow-up in 2 months. - Time Spent With Patient Total time spent is greater than 50% in coordination of care (as documented) at patient's floor/unit and/or counseling patient: 15 - 24 minutes
[2020-08-29 10:45] LABS: Atypical Lymph Absolute Manual 1.1 x10*3/uL; Atypical Lymphs Percent Manual 2 % (0-6); Lymphocytes Absolute Manual 49.6 X10*3/uL (0.6-4.8); Lymphocytes Percent Manual 91 % (20-40); Monocytes Absolute Manual 2.2 X10*3/uL (0.0-1.2); Monocytes Percent Manual 4 % (2-11); Neutrophils Percent Manual 3 % (45-73)
[2020-08-29 10:46] LABS: Hypochromasia 1+; Macrocytosis 1+; Platelet Estimate DECREASED (NORMAL); Platelet Morphology Comment NORMAL; RBC Morphology NOTED; Smudge Cells PRESENT; Stomatocytes 1+
[2020-08-29 10:47] LABS: Band Neutrophils Percent 0 % (3-5); Neutrophils Absolute Manual 1.6 X10*3/uL (2.2-7.9)
[2020-11-01 08:48] VITALS: BP 138/63; PULSE 62; RESP 12; TEMP 36.6; O2SAT 96; BMI 37.1
[2020-11-01 09:11] LABS: Hematocrit 30.5 % (42-52); Mean Corpuscular HGB Conc 32.8 g/dl (31.0-36.0); Mean Corpuscular Hemoglobin 33.9 pg (27.0-33.0); Mean Corpuscular Volume 103.4 fL (80-98); Mean Platelet Volume 10.6 fL (9.4-12.4); Red Blood Count 2.95 X10*6/uL (4.60-5.80); Red Cell Distribution Width 13.7 % (11.0-16.0)
[2020-11-01 09:18] LABS: Platelet Count 79 X10*3/uL (160-400)
--- NOTE | 2020-11-01 09:18 | MHC.HEMONCMA ---
Patient came in for a follow up today, states that he is feeling good- no complaints. Clinical summary was reviewed and updated. He had labs and will return in 2 months for a follow up.
[2020-11-01 09:19] LABS: WBC ABN SCTR FOR CBC 1
--- NOTE | 2020-11-01 09:22 | P.PNHO_ITS ---
Medical Summary - Medical Summary Date of Service: 11/01/20 Chief complaint: Follow-up Medical Summary: Diagnosed with CLL 2015 based on lymphocytic leukocytosis that has been present since 2007. He has had intermittent mild thrombocytopenia. Bone marrow biopsy performed by Dr. Wong in June 2016 demonstrated hypercellular bone marrow with active trilineage hematopoiesis, increased number of small lymphocytes, 51% of cells, findings consistent with CLL. 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 Flow cytometry revealed normal B cells that coexpressed CD5, CD23 in surface lambda light chain comprising 84% of lymphocytes; CD [address] abdomen/pelvis with contrast performed 09/06/17 showed cirrhotic liver, 1.2x1.9 cm low attenuation lesion in the right lobe of liver. Splenomegaly, diffuse lower chest and upper abdominal lymphadenopathy, largest lymph node in the precaval region measuring 1.4x3.4 cm. Family history of cancer. Genetic testing denied by insurance carrier. Interval History Interval history: Patient is here in follow-up. He continues to do well and has no new complaints today. His appetite is good. He denies any fever, chills, fatigue, recent infections, abdominal pain or change in bowel habits. No headache or dizziness. He has received both doses of COVID-19 vaccine. Review of Systems - Constitutional Reports no additional constitutional complaints - Cardiovascular Reports no additional cardiovascular complaints - Respiratory Reports no additional respiratory complaints - Gastrointestinal Reports no additional gastrointestinal complaints [facility] Medical History: Medical History (Last Updated 06/20/20 @ 08:27 by Rupa Kim MD) Chronic renal insufficiency CLL (chronic lymphocytic leukemia) Diabetes mellitus First degree AV block GERD (gastroesophageal reflux disease) Gout Hyperlipidemia Hypertension Hypothyroid Left anterior fascicular block Pulmonary nodule Skin cancer Thyroid cancer Family History: Family History (Last Updated 06/20/20 @ 08:[address]) Father No problems noted. Mother Breast cancer DVT (deep venous thrombosis) Brother Intestinal cancer Sister Breast cancer Sister Breast cancer Surgical History: Surgical History (Last Updated 06/20/20 @ 08:27 by Rupa Kim MD) H/O thyroidectomy History of knee replacement procedure of left knee Onset Date: ~1994 History of rickets Social History: Social History (Last Updated 06/20/20 @ 08:[address]) Alcohol History: Alcohol intake: never Alcohol History Details: Alcohol intake frequency: does not drink Tobacco History: Smoking Status: Never smoker Smoking status: Never smoker Home Medications and Allergies Home Medications Medication Instructions Recorded Confirmed Type allopurinol 300 mg PO BID 06/20/20 06/20/20 History atorvastatin 40 mg PO DAILY 06/20/20 06/20/20 History cholecalciferol (vitamin D3) 50 mcg PO DAILY 06/20/20 06/20/20 History [Vitamin D3] ferrous sulfate 325 mg PO DAILY 06/20/20 06/20/20 History insulin aspart U-100 [Novolog 1 sliding scale dose SUBCUT 06/20/20 06/20/20 History U-100 Insulin aspart] USEASDIRECTD levothyroxine 15 mcg PO DAILY 06/20/20 06/20/20 History omeprazole 20 mg PO DAILY 06/20/20 06/20/20 History valsartan 320 mg PO DAILY 06/20/20 06/20/20 History Allergies Allergy/AdvReac Type Severity Reaction Status Date / Time indomethacin [INDOMETHACIN] Allergy Unknown BLOODY Verified 06/13/20 10:17 STOOLS- TOLD NEVER TO TAKE Exam Vital signs: Vital Signs Temp 97.8 F 11/01/20 08:48 Pulse 62 11/01/20 08:48 Resp 12 11/01/20 08:48 BP 138/63 11/01/20 08:48 Pulse Ox 96 11/01/20 08:48 Intake & Output 10/31/20 11/01/20 11/01/20 18:59 06:59 18:59 Other: Weight 114.2 kg Weight in Grams [id number] Weight 114.2 kg Body Mass Index 37.1 - Constitutional Present: no acute distress - Routine HEENT Exam Head: Present: normal inspection - Routine Neck Exam Present: full ROM, normal inspection. Absent: lymphadenopathy - Routine Respiratory Exam Present: CTAB - Routine Cardiovascular Exam Cardiovascular: Present: RRR, S1, S2 - Routine Abdominal Exam Present: distended, soft. Absent: mass - Routine Skin Exam Present: intact. Absent: cyanosis, erythema Data - Labs CBC & Chem 7: 11/01/20 08:59 11/01/20 08:59 Labs: 06/20/20 08:25 Complete Blood Count Man Dif Routine Lactate Dehydrogenase Routine 06/20/20 08:25 Comprehensive Met. Panel Routine 06/20/20 14:51 Add Laboratory Test Stat 08/29/20 08:07 Lactate Dehydrogenase Routine 08/29/20 08:55 Comprehensive Met. Panel Routine Laboratory Last Values WBC 54.5 X10*3/uL (4.8-10.8) H* 08/29/20 08:55 RBC 3.10 X10*6/uL (4.60-5.80) L 08/29/20 08:55 Hgb 10.3 g/dl (14.0-18.0) L 08/29/20 08:55 Hct 31.4 % (42-52) L 08/29/20 08:55 MCV 101.3 fL (80-98) H 08/29/20 08:55 MCH 33.2 pg (27.0-33.0) H 08/29/20 08:55 MCHC 32.8 g/dl (31.0-36.0) 08/29/20 08:55 RDW 14.0 % (11.0-16.0) 08/29/20 08:55 Plt Count 86 X10*3/uL (160-400) L 08/29/20 08:55 MPV 10.7 fL (9.4-12.4) 08/29/20 08:55 Immature Gran % (Auto) Cancelled 08/29/20 08:55 Neut % (Auto) Cancelled 08/29/20 08:55 Lymph % (Auto) Cancelled 08/29/20 08:55 [place] % (Auto) Cancelled 08/29/20 08:55 Eos % (Auto) Cancelled 08/29/20 08:55 Baso % (Auto) Cancelled 08/29/20 08:55 Lymph # (Auto) Cancelled 08/29/20 08:55 [place] # (Auto) Cancelled 08/29/20 08:55 Eos # (Auto) Cancelled 08/29/20 08:55 Baso # (Auto) Cancelled 08/29/20 08:55 Abs Immat Gran (auto) Cancelled 08/29/20 08:55 Absolute Neuts (auto) Cancelled 08/29/20 08:55 Absolute Nucleated RBC 0.000 X10*3/uL (0.0-0.012) 08/29/20 08:55 Nucleated RBC % (auto) 0.0 /100WBC (0.0-0.2) 08/29/20 08:55 Neutrophils % (Manual) 6 % (45-73) L 06/20/20 08:25 Band Neutrophils % 0 % (3-5) L 06/20/20 08:25 Lymphocytes % (Manual) 93 % (20-40) H 06/20/20 08:25 Monocytes % (Manual) 1 % (2-11) L 06/20/20 08:25 Abs Neuts (Manual) 2.5 X10*3/uL (2.2-7.9) 06/20/20 08:25 Lymphocytes # (Manual) 38.2 X10*3/uL (0.6-4.8) H 06/20/20 08:25 Monocytes # (Manual) 0.4 X10*3/uL (0.0-1.2) 06/20/20 08:25 Smudge Cells PRESENT 06/20/20 08:25 Platelet Estimate DECREASED (NORMAL) 06/20/20 08:25 Plt Morphology Comment NORMAL 06/20/20 08:25 RBC Morphology NOTED 06/20/20 08:25 Macrocytosis 1+ 06/20/20 08:25 Sodium 141 mmol/L (135-145) 08/29/20 08:55 Potassium 4.5 mmol/l (3.3-5.1) 08/29/20 08:55 Chloride 110 mmol/L (96-108) H 08/29/20 08:55 Carbon Dioxide 24 mmol/L (22-29) 08/29/20 08:55 Anion Gap 12 (12-20) 08/29/20 08:55 BUN 29 mg/dL (9-16) H 08/29/20 08:55 Creatinine 1.39 mg/dL (0.5-1.4) 08/29/20 08:55 Estim Creat Clear Calc 51.8 08/29/20 08:55 Estimated GFR 49 08/29/20 08:55 Random Glucose 142 mg/dL (60-115) H 08/29/20 08:55 Calcium 8.4 mg/dL (8.4-10.2) 08/29/20 08:55 Total Bilirubin 0.5 mg/dL (0.0-1.0) 08/29/20 08:55 AST 27 U/L (5-37) 08/29/20 08:55 ALT 25 U/L (0-40) 08/29/20 08:55 Alkaline Phosphatase 93 U/L (39-117) 08/29/20 08:55 Lactate Dehydrogenase 238 U/L (118-273) 08/29/20 08:07 Total Protein 5.8 g/dL (6.5-8.0) L 08/29/20 08:55 Albumin 3.9 g/dL (3.5-5.0) 08/29/20 08:55 Progress Note: A/P (1) CLL (chronic lymphocytic leukemia) Status: Chronic Assessment and plan: . This is an 79-year-old male with chronic lymphocytic leukemia, CLL, clinical stage 0. He has lymphocytosis, no significant anemia or thrombocytopenia. Bone marrow biopsy performed in June 2016 confirms the diagnosis. CD 38 negative which is associated with good prognosis. FISH for CLL showed no TP53 mutation/deletion 17 P. 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 He continues to be asymptomatic, no B symptoms. He has worsening leukocytosis. CT abdomen/pelvis shows slight increase in lymphadenopathy but he is asymptomatic from this. Serum immunofixation shows suppressed immunoglobulin levels but no monoclonal protein. 2. Liver cirrhosis. Hepatitis serologies negative, AFP not elevated, liver enzymes normal. Probably related to LEO. Abdomen MRI performed September 2017 showed cirrhotic liver, single 1.3 cm enhancing lesion which did not show features of HCC. He is doing well, CBC is stable. He has no B symptoms. Follow-up in 2 months. - Time Spent With Patient Total time spent is greater than 50% in coordination of care (as documented) at patient's floor/unit and/or counseling patient: 15 - 24 minutes
[2020-11-01 09:31] LABS: Alanine Aminotransferase 21 U/L (0-40); Albumin Level 3.8 g/dL (3.5-5.0); Alkaline Phosphatase 91 U/L (39-117); Anion Gap 12 (12-20); Aspartate Amino Transferase 29 U/L (5-37); Bilirubin Total 0.8 mg/dL (0.0-1.0); Blood Urea Nitrogen 25 mg/dL (9-16); Calcium 8.6 mg/dL (8.4-10.2); Carbon Dioxide 23 mmol/L (22-29); Chloride 113 mmol/L (96-108); Creatinine Clr Calc Pharmacy 47.3; Estimated Glomerular Filt Rate 45; Glucose Random 141 mg/dL (60-115); Lactate Dehydrogenase 245 U/L (118-273); Potassium 4.7 mmol/L (3.3-5.1); Sodium 143 mmol/L (135-145); Total Protein 5.6 g/dL (6.5-8.0)
[2020-11-01 10:07] LABS: White Blood Count 49.3 X10*3/uL (4.8-10.8)
[2020-11-01 10:08] LABS: Lymphocytes Absolute Manual 46.8 X10*3/uL (0.6-4.8); Lymphocytes Percent Manual 95 % (20-40); Monocytes Absolute Manual 0.5 X10*3/uL (0.0-1.2); Monocytes Percent Manual 1 % (2-11); Neutrophils Percent Manual 4 % (45-73)
[2020-11-01 10:09] LABS: Band Neutrophils Percent 0 % (3-5); Smudge Cells PRESENT
[2020-11-01 10:10] LABS: RBC Morphology NOTED
[2020-11-01 10:11] LABS: Hypochromasia 1+; Macrocytosis 1+; Ovalocytes 1+; Platelet Estimate DECREASED (NORMAL); Platelet Morphology Comment NORMAL
[2021-01-24 08:33] VITALS: BP 125/57; PULSE 68; RESP 14; TEMP 36.7; O2SAT 95; BMI 35.6
--- NOTE | 2021-01-24 08:56 | PM.HEMONCPN ---
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 He has had intermittent mild thrombocytopenia. Bone marrow biopsy performed by Dr. Wong in June 2016 demonstrated hypercellular bone marrow with active trilineage hematopoiesis, increased number of small lymphocytes, 51% of cells, findings consistent with CLL. 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 Flow cytometry revealed normal B cells that coexpressed CD5, CD23 in surface lambda light chain comprising 84% of lymphocytes; CD [address] abdomen/pelvis with contrast performed 09/06/17 showed cirrhotic liver, 1.2x1.9 cm low attenuation lesion in the right lobe of liver. Splenomegaly, diffuse lower chest and upper abdominal lymphadenopathy, largest lymph node in the precaval region measuring 1.4x3.4 cm. Family history of cancer. Genetic testing denied by insurance carrier. Interval History Interval history: patient is here in follow-up. He is doing quite well and has no complaints today. He denies fatigue, fever, chills or loss of appetite. He has cut out fatty foods such as chips, soda and ice cream from his diet and he has lost about 10 lb. He is trying to lose 10 more lb. He has received both doses of COVID-19 vaccination. Review of Systems - Constitutional Reports as per HPI, Reports no additional constitutional complaints - Cardiovascular Reports no additional cardiovascular complaints - Respiratory Reports no additional respiratory complaints - Gastrointestinal Reports no additional gastrointestinal complaints [facility] Medical History: Medical History (Last Updated 06/20/20 @ 08:27 by Rupa Kim MD) Chronic renal insufficiency CLL (chronic lymphocytic leukemia) Diabetes mellitus First degree AV block GERD (gastroesophageal reflux disease) Gout Hyperlipidemia Hypertension Hypothyroid Left anterior fascicular block Pulmonary nodule Skin cancer Thyroid cancer Family History: Family History (Last Updated 06/20/20 @ 08:[address]) Father No problems noted. Mother Breast cancer DVT (deep venous thrombosis) Brother Intestinal cancer Sister Breast cancer Sister Breast cancer Surgical History: Surgical History (Last Updated 06/20/20 @ 08:27 by Rupa Kim MD) H/O thyroidectomy History of knee replacement procedure of left knee Onset Date: ~1994 History of rickets Social History: Social History (Last Updated 01/24/21 @ 08:[address]) Alcohol History: Alcohol intake: never Alcohol History Details: Alcohol intake frequency: does not drink Tobacco History: Patient Tobacco Use Status: Never used Tobacco Substance Use History: Use of substances other than those prescribed or required for medical reasons: No Oncology Screenings - ECOG Performance Status ECOG Performance Status: 1 Home Medications and Allergies Home Medications Medication Instructions Recorded Confirmed Type allopurinol 300 mg PO BID 06/20/20 06/20/20 History atorvastatin 40 mg PO DAILY 06/20/20 06/20/20 History cholecalciferol (vitamin D3) 50 mcg PO DAILY 06/20/20 06/20/20 History [Vitamin D3] ferrous sulfate 325 mg PO DAILY 06/20/20 06/20/20 History insulin aspart U-100 [Novolog 1 sliding scale dose SUBCUT 06/20/20 06/20/20 History U-100 Insulin aspart] USEASDIRECTD levothyroxine 15 mcg PO DAILY 06/20/20 06/20/20 History omeprazole 20 mg PO DAILY 06/20/20 06/20/20 History valsartan 320 mg PO DAILY 06/20/20 06/20/20 History Allergies Allergy/AdvReac Type Severity Reaction Status Date / Time indomethacin [INDOMETHACIN] Allergy Unknown BLOODY Verified 06/13/20 10:17 STOOLS- TOLD NEVER TO TAKE Exam Vital signs: Vital Signs Temp 98.0 F 01/24/21 08:33 Pulse 68 01/24/21 08:33 Resp 14 01/24/21 08:33 BP 125/57 L 01/24/21 08:33 Pulse Ox 95 01/24/21 08:33 Intake & Output 01/23/21 01/24/21 01/24/21 18:59 06:59 18:59 Other: Weight 109.6 kg Weight in Grams [id number] Weight 109.6 kg Body Mass Index 35.6 - Constitutional Present: no acute distress - Routine HEENT Exam Head: Present: normal inspection - Routine Neck Exam Present: full ROM, normal inspection. Absent: lymphadenopathy - Routine Respiratory Exam Present: CTAB - Routine Cardiovascular Exam Cardiovascular: Present: RRR, S1, S2 - Routine Abdominal Exam Present: distended, soft. Absent: mass - Routine Skin Exam Present: intact. Absent: cyanosis, erythema Data - Labs CBC & Chem 7: 01/24/21 09:00 01/24/21 09:00 Labs: 06/20/20 08:25 Complete Blood Count Man Dif Routine Lactate Dehydrogenase Routine 06/20/20 08:25 Comprehensive Met. Panel Routine 06/20/20 14:51 Add Laboratory Test Stat 08/29/20 08:07 Lactate Dehydrogenase Routine 08/29/20 08:55 Comprehensive Met. Panel Routine Laboratory Last Values WBC 54.5 X10*3/uL (4.8-10.8) H* 08/29/20 08:55 RBC 3.10 X10*6/uL (4.60-5.80) L 08/29/20 08:55 Hgb 10.3 g/dl (14.0-18.0) L 08/29/20 08:55 Hct 31.4 % (42-52) L 08/29/20 08:55 MCV 101.3 fL (80-98) H 08/29/20 08:55 MCH 33.2 pg (27.0-33.0) H 08/29/20 08:55 MCHC 32.8 g/dl (31.0-36.0) 08/29/20 08:55 RDW 14.0 % (11.0-16.0) 08/29/20 08:55 Plt Count 86 X10*3/uL (160-400) L 08/29/20 08:55 MPV 10.7 fL (9.4-12.4) 08/29/20 08:55 Immature Gran % (Auto) Cancelled 08/29/20 08:55 Neut % (Auto) Cancelled 08/29/20 08:55 Lymph % (Auto) Cancelled 08/29/20 08:55 Menard % (Auto) Cancelled 08/29/20 08:55 Eos % (Auto) Cancelled 08/29/20 08:55 Baso % (Auto) Cancelled 08/29/20 08:55 Lymph # (Auto) Cancelled 08/29/20 08:55 Menard # (Auto) Cancelled 08/29/20 08:55 Eos # (Auto) Cancelled 08/29/20 08:55 Baso # (Auto) Cancelled 08/29/20 08:55 Abs Immat Gran (auto) Cancelled 08/29/20 08:55 Absolute Neuts (auto) Cancelled 08/29/20 08:55 Absolute Nucleated RBC 0.000 X10*3/uL (0.0-0.012) 08/29/20 08:55 Nucleated RBC % (auto) 0.0 /100WBC (0.0-0.2) 08/29/20 08:55 Neutrophils % (Manual) 6 % (45-73) L 06/20/20 08:25 Band Neutrophils % 0 % (3-5) L 06/20/20 08:25 Lymphocytes % (Manual) 93 % (20-40) H 06/20/20 08:25 Monocytes % (Manual) 1 % (2-11) L 06/20/20 08:25 Abs Neuts (Manual) 2.5 X10*3/uL (2.2-7.9) 06/20/20 08:25 Lymphocytes # (Manual) 38.2 X10*3/uL (0.6-4.8) H 06/20/20 08:25 Monocytes # (Manual) 0.4 X10*3/uL (0.0-1.2) 06/20/20 08:25 Smudge Cells PRESENT 06/20/20 08:25 Platelet Estimate DECREASED (NORMAL) 06/20/20 08:25 Plt Morphology Comment NORMAL 06/20/20 08:25 RBC Morphology NOTED 06/20/20 08:25 Macrocytosis 1+ 06/20/20 08:25 Sodium 141 mmol/L (135-145) 08/29/20 08:55 Potassium 4.5 mmol/l (3.3-5.1) 08/29/20 08:55 Chloride 110 mmol/L (96-108) H 08/29/20 08:55 Carbon Dioxide 24 mmol/L (22-29) 08/29/20 08:55 Anion Gap 12 (12-20) 08/29/20 08:55 BUN 29 mg/dL (9-16) H 08/29/20 08:55 Creatinine 1.39 mg/dL (0.5-1.4) 08/29/20 08:55 Estim Creat Clear Calc 51.8 08/29/20 08:55 Estimated GFR 49 08/29/20 08:55 Random Glucose 142 mg/dL (60-115) H 08/29/20 08:55 Calcium 8.4 mg/dL (8.4-10.2) 08/29/20 08:55 Total Bilirubin 0.5 mg/dL (0.0-1.0) 08/29/20 08:55 AST 27 U/L (5-37) 08/29/20 08:55 ALT 25 U/L (0-40) 08/29/20 08:55 Alkaline Phosphatase 93 U/L (39-117) 08/29/20 08:55 Lactate Dehydrogenase 238 U/L (118-273) 08/29/20 08:07 Total Protein 5.8 g/dL (6.5-8.0) L 08/29/20 08:55 Albumin 3.9 g/dL (3.5-5.0) 08/29/20 08:55 Progress Note: A/P (1) CLL (chronic lymphocytic leukemia) Status: Chronic Assessment and plan: . This is an 80-year-old male with chronic lymphocytic leukemia, CLL, clinical stage 0. He has lymphocytosis, no significant anemia or thrombocytopenia. Bone marrow biopsy performed in June 2016 confirms the diagnosis. CD 38 negative which is associated with good prognosis. FISH for CLL showed no TP53 mutation/deletion 17 P. 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 He continues to be asymptomatic, no B symptoms. He has worsening leukocytosis. anemia and thrombocytopenia have worsened. In view of cytopenias, I am starting him on treatment for CLL. He will be started on ibrutinib oral tyrosine kinase inhibitor in the first-line setting. He will be scheduled for a chemotherapy teach appointment. He will be monitored closely for cardiac side effects and hemorrhage. 2. Liver cirrhosis. Hepatitis serologies negative, AFP not elevated, liver enzymes normal. Probably related to LEO. Last imaging, CT abdomen and pelvis without contrast in February 2020 revealed diffuse lymphadenopathy slightly increased since 2018, stable splenomegaly and cirrhotic appearing liver, stable compared to prior scan. . Follow-up in 1 month. - Time Spent With Patient Total time spent is greater than 50% in coordination of care (as documented) at patient's floor/unit and/or counseling patient: 15 - 24 minutes
[2021-01-24 09:21] LABS: Hematocrit 28.9 % (42-52); Hemoglobin 9.4 g/dl (14.0-18.0); Mean Corpuscular HGB Conc 32.5 g/dl (31.0-36.0); Mean Corpuscular Hemoglobin 33.6 pg (27.0-33.0); Mean Corpuscular Volume 103.2 fL (80-98); Mean Platelet Volume 11.7 fL (9.4-12.4); Red Cell Distribution Width 13.4 % (11.0-16.0)
[2021-01-24 09:25] LABS: Platelet Count 65 X10*3/uL (160-400); WBC ABN SCTR FOR CBC 1
[2021-01-24 09:26] LABS: White Blood Count 57.7 X10*3/uL (4.8-10.8)
[2021-01-24 09:53] LABS: Alanine Aminotransferase 28 U/L (0-40); Albumin Level 3.8 g/dL (3.5-5.0); Alkaline Phosphatase 103 U/L (39-117); Anion Gap 13 (12-20); Aspartate Amino Transferase 35 U/L (5-37); Bilirubin Total 0.8 mg/dL (0.0-1.0); Blood Urea Nitrogen 32 mg/dL (9-16); Calcium 8.9 mg/dL (8.4-10.2); Carbon Dioxide 23 mmol/L (22-29); Chloride 109 mmol/L (96-108); Estimated Glomerular Filt Rate 33; Glucose Random 182 mg/dL (60-115); Lactate Dehydrogenase 263 U/L (118-273); Potassium 5.2 mmol/L (3.3-5.1); Sodium 140 mmol/L (135-145); Total Protein 5.6 g/dL (6.5-8.0)
[2021-01-24 11:17] LABS: Acanthocytes 1+ (0-2) /OIF; Band Neutrophils Percent 0 % (3-5); Blast Percent 2 %; Blastocytes Absolute 1.2 X10*3/uL; Lymphocytes Absolute Manual 54.2 X10*3/uL (0.6-4.8); Lymphocytes Percent Manual 94 % (20-40); Monocytes Absolute Manual 1.2 X10*3/uL (0.0-1.2); Monocytes Percent Manual 2 % (2-11); Neutrophils Absolute Manual 1.2 X10*3/uL (2.2-7.9); Neutrophils Percent Manual 2 % (45-73); Ovalocytes 1+ (5-14) /OIF; Platelet Estimate DECREASED (NORMAL); Platelet Morphology Comment NORMAL; RBC Morphology NOTED; Stomatocytes 2+ (15-30) /OIF
[2021-01-24 11:18] LABS: Hypochromasia 1+ (5-14) /OIF
--- NOTE | 2021-01-24 13:45 | MHC.HEMONCMA ---
Patient came in for a follow up today, states that he is doing well. Clinical summary was reviewed and updated. Patient had labs and will return in 6 months for a follow up.. Dr Kim reviewed the patient's labs, his kidney functions are getting worse so Dr Kim is referring the patient to a buckle and button maker- i will be calling the patient later with the time and date for this.
--- NOTE | 2021-01-25 09:43 | MHC.HEMONCMA ---
Called and spoke with Dr Knutson's office to schedule appt. They are requesting last office note, recent labs and demographic information faxed to their new patient fax number, and to write urgent on the fax so the patient is scheduled within 1 week. All records were faxed, they will contact the patient with the appt date and time and will fax us over a confirmation with the consultation date.
--- NOTE | 2021-01-27 10:21 | HO.HEMONCPA ---
RX FOR IMBRUVICA FAXED TO [facility] . AWAITING DECISION
--- NOTE | 2021-01-27 10:24 | HE.ONCSEC ---
[facility] INSURANCE INFO- ID#[id number]. PLAN ID: [id number]. CARD EXPIRATION DATE-02/06/2024
--- NOTE | 2021-02-06 16:19 | MHC.HEMONC ---
Telephone call from pt. He received his Ibrutinib delivery. Was scheduled for a brief teach on 02/08. Pt told not to take any pills until he has the teaching done. Pt to bring pills with him to his appointment.
[2021-02-08 12:54] LABS: Hemoglobin 9.9 g/dl (14.0-18.0); PLT CLUMP 1
[2021-02-08 12:57] LABS: Hematocrit 30.8 % (42-52); Mean Corpuscular HGB Conc 32.1 g/dl (31.0-36.0); Mean Corpuscular Hemoglobin 33.2 pg (27.0-33.0); Mean Corpuscular Volume 103.4 fL (80-98); Red Blood Count 2.98 X10*6/uL (4.60-5.80); Red Cell Distribution Width 13.6 % (11.0-16.0)
[2021-02-08 13:07] LABS: WBC ABN SCTR FOR CBC 1
[2021-02-08 13:08] LABS: White Blood Count 83.5 X10*3/uL (4.8-10.8)
[2021-02-08 13:16] LABS: Atypical Lymph Absolute Manual 1.7 x10*3/uL; Atypical Lymphs Percent Manual 2 % (0-6); Band Neutrophils Percent 0 % (3-5); Lymphocytes Absolute Manual 71.8 X10*3/uL (0.6-4.8); Lymphocytes Percent Manual 86 % (20-40); Monocytes Absolute Manual 0.8 X10*3/uL (0.0-1.2); Monocytes Percent Manual 1 % (2-11); Neutrophils Absolute Manual 9.2 X10*3/uL (2.2-7.9); Neutrophils Percent Manual 11 % (45-73)
[2021-02-08 13:17] LABS: Platelet Estimate DECREASED (NORMAL); Platelet Morphology Comment NORMAL
[2021-02-08 13:18] LABS: Macrocytosis 1+ (5-14) /OIF; Smudge Cells PRESENT
[2021-02-08 13:19] LABS: RBC Morphology NOTED
[2021-02-08 13:20] LABS: Alanine Aminotransferase 24 U/L (0-40); Alkaline Phosphatase 104 U/L (39-117); Anion Gap 13 (12-20); Aspartate Amino Transferase 32 U/L (5-37); Bilirubin Total 0.6 mg/dL (0.0-1.0); Blood Urea Nitrogen 33 mg/dL (9-16); Calcium 8.9 mg/dL (8.4-10.2); Carbon Dioxide 21 mmol/L (22-29); Chloride 113 mmol/L (96-108); Estimated Glomerular Filt Rate 33; Glucose Random 108 mg/dL (60-115); Mean Platelet Volume 11.5 fL (9.4-12.4); Platelet Count 73 X10*3/uL (160-400); Potassium 4.8 mmol/L (3.3-5.1); Sodium 142 mmol/L (135-145); Total Protein 5.8 g/dL (6.5-8.0)
--- NOTE | 2021-02-08 14:34 | MHC.HEMONC ---
pt educated on new po treatment with Ibrutinib. He brought in medication received from [facility] and we reviewed dosing and how to take. I reviewed common side effects and reasons to call clinic. He signed consent and will come in for weekly labs.
[2021-02-15 10:54] LABS: Hematocrit 28.6 % (42-52); Hemoglobin 8.8 g/dl (14.0-18.0); Mean Corpuscular HGB Conc 30.8 g/dl (31.0-36.0); Mean Corpuscular Hemoglobin 32.6 pg (27.0-33.0); Mean Corpuscular Volume 105.9 fL (80-98); Mean Platelet Volume 11.8 fL (9.4-12.4); Red Cell Distribution Width 13.4 % (11.0-16.0)
[2021-02-15 11:00] LABS: Platelet Count 57 X10*3/uL (160-400); WBC ABN SCTR FOR CBC 1
[2021-02-15 11:01] LABS: White Blood Count 103.7 X10*3/uL (4.8-10.8)
[2021-02-15 11:26] LABS: Lymphocytes Absolute Manual 98.5 X10*3/uL (0.6-4.8); Lymphocytes Percent Manual 95 % (20-40); Monocytes Percent Manual 1 % (2-11); Neutrophils Percent Manual 4 % (45-73)
[2021-02-15 11:30] LABS: Macrocytosis 1+ (5-14) /OIF; Ovalocytes 2+ (15-30) /OIF; Platelet Estimate DECREASED (NORMAL); Platelet Morphology Comment NORMAL; RBC Morphology NOTED; Rouleau PRESENT; Smudge Cells PRESENT
[2021-02-15 11:50] LABS: Alanine Aminotransferase 18 U/L (0-40); Albumin Level 3.8 g/dL (3.5-5.0); Alkaline Phosphatase 112 U/L (39-117); Anion Gap 14 (12-20); Aspartate Amino Transferase 19 U/L (5-37); Bilirubin Total 0.5 mg/dL (0.0-1.0); Blood Urea Nitrogen 55 mg/dL (9-16); Calcium 8.8 mg/dL (8.4-10.2); Carbon Dioxide 17 mmol/L (22-29); Chloride 113 mmol/L (96-108); Creatinine Clr Calc Pharmacy 29.3; Estimated Glomerular Filt Rate 26; Glucose Random 145 mg/dL (60-115); Potassium 4.8 mmol/L (3.3-5.1); Sodium 139 mmol/L (135-145); Total Protein 5.6 g/dL (6.5-8.0)
[2021-02-15 12:32] LABS: Band Neutrophils Percent 0 % (3-5); Neutrophils Absolute Manual 4.1 X10*3/uL (2.2-7.9)
--- NOTE | 2021-02-15 13:51 | MHC.HEMONC ---
Labs reviewed. Critical WBC 103.7 with worsening kidney function. BUN 55/2.37. Dr. Kim aware, patient instructed to return to office. Patient does report dribbling and not voiding much Patient bladder scanned for 615mls. Orders received for straight catherization- over 1,000mls removed. Urine yellow, no odor. Patient reports relief. Patient transported to radiology for ultrasound of the kidneys.
[2021-02-15 14:18] VITALS: BP 124/58; PULSE 60; RESP 18; TEMP 36.6; O2SAT 95; BMI 35.2
[2021-02-17 09:40] LABS: Hematocrit 29.2 % (42-52); Hemoglobin 8.8 g/dl (14.0-18.0); Mean Corpuscular HGB Conc 30.1 g/dl (31.0-36.0); Mean Corpuscular Hemoglobin 31.9 pg (27.0-33.0); Mean Corpuscular Volume 105.8 fL (80-98); Mean Platelet Volume 12.4 fL (9.4-12.4); Red Blood Count 2.76 X10*6/uL (4.60-5.80); Red Cell Distribution Width 13.3 % (11.0-16.0)
[2021-02-17 09:56] LABS: Platelet Count 64 X10*3/uL (160-400); WBC ABN SCTR FOR CBC 1
[2021-02-17 09:59] LABS: White Blood Count 99.4 X10*3/uL (4.8-10.8)
[2021-02-17 10:08] LABS: Alanine Aminotransferase 15 U/L (0-40); Albumin Level 3.7 g/dL (3.5-5.0); Alkaline Phosphatase 103 U/L (39-117); Anion Gap 13 (12-20); Aspartate Amino Transferase 18 U/L (5-37); Bilirubin Total 0.7 mg/dL (0.0-1.0); Blood Urea Nitrogen 56 mg/dL (9-16); Calcium 8.8 mg/dL (8.4-10.2); Carbon Dioxide 18 mmol/L (22-29); Chloride 112 mmol/L (96-108); Creatinine Clr Calc Pharmacy 31.7; Estimated Glomerular Filt Rate 29; Glucose Random 136 mg/dL (60-115); Potassium 4.9 mmol/L (3.3-5.1); Sodium 138 mmol/L (135-145); Total Protein 5.6 g/dL (6.5-8.0)
[2021-02-17 10:16] VITALS: BP 156/73; PULSE 72; RESP 18; TEMP 36.2; O2SAT 99; BMI 19.5
[2021-02-17 10:22] LABS: Lymphocytes Absolute Manual 97.4 X10*3/uL (0.6-4.8); Lymphocytes Percent Manual 98 % (20-40); Neutrophils Percent Manual 2 % (45-73)
[2021-02-17 10:24] LABS: Band Neutrophils Percent 0 % (3-5); Macrocytosis 2+ (15-30) /OIF; Ovalocytes 1+ (5-14) /OIF; Platelet Estimate DECREASED (NORMAL); Platelet Morphology Comment NORMAL; RBC Morphology NOTED; Smudge Cells PRESENT
[2021-02-17 11:10] VITALS: BP 123/59; PULSE 56; RESP 17; TEMP 35.9; O2SAT 95
[2021-02-17] MEDS: 0.9 % Sodium Chloride 1,000 ML 500 ML IVCONT (11:49)
--- NOTE | 2021-02-17 13:19 | PM.HEMONCPN ---
Medical Summary - Medical Summary Date of Service: 02/17/21 Chief complaint: follow-up for: CLL. 2. Urinary retention. 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 He has had intermittent mild thrombocytopenia. Bone marrow biopsy performed by Dr. Wong in June 2016 demonstrated hypercellular bone marrow with active trilineage hematopoiesis, increased number of small lymphocytes, 51% of cells, findings consistent with CLL. 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 Flow cytometry revealed normal B cells that coexpressed CD5, CD23 in surface lambda light chain comprising 84% of lymphocytes; CD [address] abdomen/pelvis with contrast performed 09/06/17 showed cirrhotic liver, 1.2x1.9 cm low attenuation lesion in the right lobe of liver. Splenomegaly, diffuse lower chest and upper abdominal lymphadenopathy, largest lymph node in the precaval region measuring 1.4x3.4 cm. Family history of cancer: Genetic testing denied by insurance carrier. Interval History Interval history: 80-year-old gentleman here for a follow-up. He started on Ibrutinib about a week ago. He is not doing too well. He has been rather fatigued. He has had problems urinating. He complained of generalized weakness and incomplete emptying of the bladder for the last 2-1/2 weeks. He denies any associated urinary burning, urgency, or frequency. He has suprapubic pain. He has some dribbling. He feels he is not emptying his bladder, properly. He denies fever, chills. He denies any associated nausea, vomiting, diarrhea. He does have a loss of appetite. He had already cut out fatty foods such as chips, soda and ice cream from his diet. He has lost > 10 lb. The patient was noted to have worsening renal function, although creatinine did improve from February 15 of 2.3 to 2.17 today. The patient denies any prior history of chronic kidney disease, although seems to have chronic kidney disease stage 3 from last year. He has been on losartan for more than 20 years. His Kidney function has worsened. Serial creatinine: 11/06: 1.50. 6/8 and 02/08 : 1.93. 02/15: 2.3. 02/17: 2.17. On 02/15 he was straight cathed with 1 L of urine. Renal ultrasound from 02/15: Bilateral renal cortical thinning. No hydronephrosis. Small left renal cysts. Enlarged spleen. Today his post void residual was 999. Therefore, Bashir catheter was placed. Previous history: He has received both doses of COVID-19 vaccination. Review of Systems - Constitutional Reports system reviewed and no additional complaints, except as documented, Reports fatigue, Reports lack of energy, Reports malaise, Reports weakness, Reports weight loss - Eyes Reports system reviewed and no additional complaints, except as documented, Denies blurry vision - ENT Reports system reviewed and no additional complaints, except as documented - Cardiovascular Reports system reviewed and no additional complaints, except as documented - Respiratory Reports no additional respiratory complaints, Denies cough - Gastrointestinal Reports system reviewed and no additional complaints, except as documented, Reports abdominal pain, Reports constipation, Denies black, tarry stools, Denies diarrhea, Denies nausea - Genitourinary Genitourinary: Reports no additional male genitourinary complaints, Reports difficulty urinating, Denies blood in urine - Musculoskeletal Reports system reviewed and no additional complaints, except as documented, Denies muscle cramps - Integumentary/Breasts Skin/Breast: Reports no additional skin complaints, Denies bleeding lesions - Neurologic Reports system reviewed and no additional complaints, except as documented, Denies abnormal movements - Psychiatric Reports system reviewed and no additional complaints, except as documented, Reports anxiety, Reports change in appetite - Endocrine Reports no additional endocrine complaints - Hematologic/Lymphatic Reports system reviewed and no additional complaints, except as documented - Allergic/Immunologic Reports system reviewed and no additional complaints, except as documented [facility] Medical History: Medical History (Last Updated 02/18/21 @ 12:40 by Olivier Jenkins MD) Chronic renal insufficiency CLL (chronic lymphocytic leukemia) Diabetes mellitus First degree AV block GERD (gastroesophageal reflux disease) Gout Hyperlipidemia Hypertension Hypothyroid Left anterior fascicular block Pulmonary nodule Skin cancer Thyroid cancer Functional capacity: uses cane/walker Patient : No Family History: Family History (Last Reviewed 02/17/21 @ 16:05 by Elias Patel MD) Father No problems noted. Mother Breast cancer DVT (deep venous thrombosis) Brother Intestinal cancer Sister Breast cancer Sister Breast cancer Surgical History: Surgical History (Last Reviewed 02/17/21 @ 16:05 by Elias Patel MD) H/O thyroidectomy History of knee replacement procedure of left knee Onset Date: ~1994 History of rickets Social History: Social History (Last Reviewed 02/17/21 @ 16:05 by Elias Patel MD) Living Situation History: Household Members: Spouse Household Members: Children Housing: House Alcohol History: Alcohol intake: never Alcohol History Details: Alcohol intake frequency: does not drink Tobacco History: Patient Tobacco Use Status: Never used Tobacco Advance Directives: Advance Directives Date on File: 02/17/21 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: Yes Current occupational status: retired Oncology Screenings - ECOG Performance Status ECOG Performance Status: 1 Home Medications and Allergies Current Medications: Current Medications Generic Name Dose Route Start Last Admin Trade Name Freq PRN Reason Stop Dose Admin Sodium Chloride 1,000 mls @ 500 mls/hr 02/17/21 11:30 02/17/21 11:49 Ns IVCONT 02/17/21 13:29 500 mls/hr .Q2H LOU Administration Home Medications Medication Instructions Recorded Confirmed Type allopurinol 300 mg PO DAILY 06/20/20 02/17/21 History cholecalciferol (vitamin D3) 50 mcg PO DAILY 06/20/20 02/17/21 History [Vitamin D3] ferrous sulfate 325 mg PO BID 06/20/20 02/17/21 History omeprazole 20 mg PO BID 06/20/20 02/17/21 History Lantus U-100 Insulin 11 unit SUBCUT BID 02/17/21 02/17/21 History atorvastatin 40 mg PO BEDTIME 02/17/21 02/17/21 History empagliflozin 12.5 mg PO DAILY 02/17/21 02/17/21 History insulin aspart U-100 [Novolog 5 unit SUBCUT DAILY@1200 02/17/21 02/17/21 History U-100 Insulin aspart] insulin aspart U-100 [Novolog 11 unit SUBCUT BID@0800,1700 02/17/21 02/17/21 History U-100 Insulin aspart] levothyroxine 175 mcg PO DAILY 02/17/21 02/17/21 History meclizine 12.5 mg PO BEDTIME PRN 02/17/21 02/17/21 History metoprolol succinate [Toprol XL] 12.5 mg PO DAILY 02/17/21 02/17/21 History Allergies Allergy/AdvReac Type Severity Reaction Status Date / Time indomethacin [INDOMETHACIN] Allergy Unknown BLOODY Verified 02/18/21 11:19 STOOLS- TOLD NEVER TO TAKE Exam Vital signs: Vital Signs Temp 96.7 F L 02/17/21 11:10 Pulse 56 02/17/21 11:10 Resp 17 02/17/21 11:10 BP 123/59 L 02/17/21 11:10 Pulse Ox 95 02/17/21 11:10 Intake & Output 02/16/21 02/17/21 02/17/21 18:59 06:59 18:59 Other: Weight 60 kg [place] Weight in Grams [id number] Weight 60 kg Body Mass Index 19.5 - Constitutional Present: no acute distress - Routine HEENT Exam Head: Present: normal inspection - Routine Neck Exam Present: full ROM, normal inspection. Absent: lymphadenopathy - Routine Respiratory Exam Present: CTAB - Routine Cardiovascular Exam Cardiovascular: Present: RRR, S1, S2 - Routine Abdominal Exam Present: distended, soft. Absent: mass - Routine Skin Exam Present: intact. Absent: cyanosis, erythema Data - Labs CBC & Chem 7: 02/17/21 09:08 02/17/21 09:08 Labs: 06/20/20 08:25 Complete Blood Count Man Dif Routine Lactate Dehydrogenase Routine 06/20/20 08:25 Comprehensive Met. Panel Routine 06/20/20 14:51 Add Laboratory Test Stat 08/29/20 08:07 Lactate Dehydrogenase Routine 08/29/20 08:55 Comprehensive Met. Panel Routine Laboratory Last Values WBC 54.5 X10*3/uL (4.8-10.8) H* 08/29/20 08:55 RBC 3.10 X10*6/uL (4.60-5.80) L 08/29/20 08:55 Hgb 10.3 g/dl (14.0-18.0) L 08/29/20 08:55 Hct 31.4 % (42-52) L 08/29/20 08:55 MCV 101.3 fL (80-98) H 08/29/20 08:55 MCH 33.2 pg (27.0-33.0) H 08/29/20 08:55 MCHC 32.8 g/dl (31.0-36.0) 08/29/20 08:55 RDW 14.0 % (11.0-16.0) 08/29/20 08:55 Plt Count 86 X10*3/uL (160-400) L 08/29/20 08:55 MPV 10.7 fL (9.4-12.4) 08/29/20 08:55 Immature Gran % (Auto) Cancelled 08/29/20 08:55 Neut % (Auto) Cancelled 08/29/20 08:55 Lymph % (Auto) Cancelled 08/29/20 08:55 [place] % (Auto) Cancelled 08/29/20 08:55 Eos % (Auto) Cancelled 08/29/20 08:55 Baso % (Auto) Cancelled 08/29/20 08:55 Lymph # (Auto) Cancelled 08/29/20 08:55 [place] # (Auto) Cancelled 08/29/20 08:55 Eos # (Auto) Cancelled 08/29/20 08:55 Baso # (Auto) Cancelled 08/29/20 08:55 Abs Immat Gran (auto) Cancelled 08/29/20 08:55 Absolute Neuts (auto) Cancelled 08/29/20 08:55 Absolute Nucleated RBC 0.000 X10*3/uL (0.0-0.012) 08/29/20 08:55 Nucleated RBC % (auto) 0.0 /100WBC (0.0-0.2) 08/29/20 08:55 Neutrophils % (Manual) 6 % (45-73) L 06/20/20 08:25 Band Neutrophils % 0 % (3-5) L 06/20/20 08:25 Lymphocytes % (Manual) 93 % (20-40) H 06/20/20 08:25 Monocytes % (Manual) 1 % (2-11) L 06/20/20 08:25 Abs Neuts (Manual) 2.5 X10*3/uL (2.2-7.9) 06/20/20 08:25 Lymphocytes # (Manual) 38.2 X10*3/uL (0.6-4.8) H 06/20/20 08:25 Monocytes # (Manual) 0.4 X10*3/uL (0.0-1.2) 06/20/20 08:25 Smudge Cells PRESENT 06/20/20 08:25 Platelet Estimate DECREASED (NORMAL) 06/20/20 08:25 Plt Morphology Comment NORMAL 06/20/20 08:25 RBC Morphology NOTED 06/20/20 08:25 Macrocytosis 1+ 06/20/20 08:25 Sodium 141 mmol/L (135-145) 08/29/20 08:55 Potassium 4.5 mmol/l (3.3-5.1) 08/29/20 08:55 Chloride 110 mmol/L (96-108) H 08/29/20 08:55 Carbon Dioxide 24 mmol/L (22-29) 08/29/20 08:55 Anion Gap 12 (12-20) 08/29/20 08:55 BUN 29 mg/dL (9-16) H 08/29/20 08:55 Creatinine 1.39 mg/dL (0.5-1.4) 08/29/20 08:55 Estim Creat Clear Calc 51.8 08/29/20 08:55 Estimated GFR 49 08/29/20 08:55 Random Glucose 142 mg/dL (60-115) H 08/29/20 08:55 Calcium 8.4 mg/dL (8.4-10.2) 08/29/20 08:55 Total Bilirubin 0.5 mg/dL (0.0-1.0) 08/29/20 08:55 AST 27 U/L (5-37) 08/29/20 08:55 ALT 25 U/L (0-40) 08/29/20 08:55 Alkaline Phosphatase 93 U/L (39-117) 08/29/20 08:55 Lactate Dehydrogenase 238 U/L (118-273) 08/29/20 08:07 Total Protein 5.8 g/dL (6.5-8.0) L 08/29/20 08:55 Albumin 3.9 g/dL (3.5-5.0) 08/29/20 08:55 Progress Note: A/P (1) CLL (chronic lymphocytic leukemia) Status: Chronic Assessment and plan: This is a pleasant 80-year-old gentleman with chronic lymphocytic leukemia, CLL, clinical stage 0. He has lymphocytosis, no significant anemia or thrombocytopenia. Bone marrow biopsy performed in June 2016 confirms the diagnosis. CD 38 negative which is associated with good prognosis. FISH for CLL showed no TP53 mutation/deletion 17 P. 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 He continues to be asymptomatic, no B symptoms. He has worsening leukocytosis. anemia and thrombocytopenia have worsened. In view of cytopenias, he was recently started on treatment for CLL. He was started on ibrutinib oral tyrosine kinase inhibitor in the first-line setting, about 9 days ago. Will continue that. (2) Cirrhosis of liver Status: Acute Assessment and plan: 2. Liver Cirrhosis: Hepatitis serologies negative, AFP not elevated, liver enzymes normal. Probably related to LEO. Last imaging, CT abdomen and pelvis without contrast in February 2020 revealed: Diffuse lymphadenopathy slightly increased since 2018, stable splenomegaly and cirrhotic appearing liver, stable compared to prior scan. (3) CKD (chronic kidney disease) Status: Acute Assessment and plan: 80-year-old gentleman with History of CLL, recently started on ibrutinib about a week ago, now with worsening renal function. Serial creatinine: 11/06: 1.50. 6/8 and 02/08 : 1.93. 02/15: 2.3. 02/17: 2.17. On 02/15 he was straight cathed with 1 L of urine. Renal ultrasound from 02/15: Bilateral renal cortical thinning. No hydronephrosis. Small left renal cysts. Enlarged spleen. Today his post void residual was 999. He could have underlying enlarged prostate causing urinary retention. Worsening renal function: Could be prerenal, renal versus post renal. Most likely, post renal related to BPH. PLAN: Will place a Bashir catheter. Will check urine osms and lytes. He will be referred to the emergency room to be admitted for further evaluation. He will have a renal consult. Urology will be consulted. I discussed the case with the ER physician who has graciously accepted him. Thank you, cc: - Time Spent With Patient 25 - 35 minutes
[2021-02-17 14:53] LABS: Osmolality Urine 435 mosm/kg (373-1093)
--- NOTE | 2021-02-17 15:05 | MHC.HEMONC ---
Labs obtained and reviewed. Renal function still elevated. Patient does report continued dribbling Dr. Hickman updated. 1L NS ordered. Patient voided 700 in urinal. Post void residual >999mls. Dr. Hickman recommends norris cathether placement and transfer to ED for further evaluation. Norris cathether placed with some difficulty. Approx 1200mls noted in norris bag, urine sent to lab. Report given to triage nurse Grisel. Patient transferred to ED via wheelchair. Maryana called and given updated.
[2021-02-24 11:21] LABS: Hematocrit 27.4 % (42-52); Hemoglobin 8.3 g/dl (14.0-18.0); Mean Corpuscular HGB Conc 30.3 g/dl (31.0-36.0); Mean Corpuscular Volume 105.8 fL (80-98); Mean Platelet Volume 12.2 fL (9.4-12.4); Red Blood Count 2.59 X10*6/uL (4.60-5.80); Red Cell Distribution Width 13.2 % (11.0-16.0)
[2021-02-24 11:31] LABS: Platelet Count 71 X10*3/uL (160-400); WBC ABN SCTR FOR CBC 1; White Blood Count 98.3 X10*3/uL (4.8-10.8)
[2021-02-24 11:52] LABS: Alanine Aminotransferase 15 U/L (0-40); Albumin Level 3.8 g/dL (3.5-5.0); Alkaline Phosphatase 96 U/L (39-117); Anion Gap 14 (12-20); Aspartate Amino Transferase 20 U/L (5-37); Bilirubin Total 0.7 mg/dL (0.0-1.0); Blood Urea Nitrogen 58 mg/dL (9-16); Calcium 8.7 mg/dL (8.4-10.2); Carbon Dioxide 17 mmol/L (22-29); Chloride 109 mmol/L (96-108); Estimated Glomerular Filt Rate 26; Glucose Random 122 mg/dL (60-115); Potassium 4.8 mmol/L (3.3-5.1); Sodium 135 mmol/L (135-145); Total Protein 5.7 g/dL (6.5-8.0)
[2021-02-24 12:01] LABS: Lymphocytes Absolute Manual 93.4 X10*3/uL (0.6-4.8); Lymphocytes Percent Manual 95 % (20-40); Monocytes Percent Manual 2 % (2-11); Neutrophils Percent Manual 3 % (45-73)
[2021-02-24 12:04] LABS: Macrocytosis 1+ (5-14) /OIF; RBC Morphology NOTED
[2021-02-24 12:05] LABS: Acanthocytes 1+ (0-2) /OIF; Hypochromasia 1+ (5-14) /OIF; Ovalocytes 1+ (5-14) /OIF; Platelet Estimate DECREASED (NORMAL); Platelet Morphology Comment NORMAL; Polychromasia 1+ (0-2) /OIF; Stomatocytes 1+ (5-14) /OIF; Tear Drop Cells 1+ (0-2) /OIF
[2021-02-24 12:10] LABS: Band Neutrophils Percent 0 % (3-5); Neutrophils Absolute Manual 2.9 X10*3/uL (2.2-7.9)
--- NOTE | 2021-02-24 13:08 | MHC.HEMONC ---
pt here for labs. I saw him and he did have f/u with Dr Jenkins and Social Contact Worker. His norris was removed yesterday and he is voiding per usual. No bleeding. He is taking his Imbruvica. Neither Specialist had immediate concerns. Labs from today were reviewed by me and by Dr Kim. He will return next week.
[2021-03-08 08:49] VITALS: BP 132/61; PULSE 64; RESP 14; TEMP 36.6; O2SAT 97; BMI 35.6
--- NOTE | 2021-03-08 09:04 | PM.HEMONCPN ---
Medical Summary - Medical Summary Date of Service: 03/08/21 Chief complaint: Follow-up Medical Summary: DIAGNOSIS: CLL, diagnosed in 2016 based on lymphocytic leukocytosis that has been present since 2007. He has had intermittent mild thrombocytopenia. Bone marrow biopsy performed by Dr. Wong in June 2016 demonstrated hypercellular bone marrow with active trilineage hematopoiesis, increased number of small lymphocytes, 51% of cells, findings consistent with CLL. 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 Flow cytometry revealed normal B cells that coexpressed CD5, CD23 in surface lambda light chain comprising 84% of lymphocytes; CD [address] abdomen/pelvis with contrast performed 09/06/17 showed cirrhotic liver, 1.2x1.9 cm low attenuation lesion in the right lobe of liver. Splenomegaly, diffuse lower chest and upper abdominal lymphadenopathy, largest lymph node in the precaval region measuring 1.4x3.4 cm. Family history of cancer: Genetic testing denied by insurance carrier. Started ibrutinib 420 mg once daily from 02/10/2021. Interval History Interval history: Patient is here in follow-up. He is feeling a lot better now since discharge from the hospital. His urination is normal, he still has Bashir catheter in place. He denies any chest pain or shortness of breath. His bowel movements are regular. His abdominal distension has come down. His leg swelling has come down as well. No fever or chills. No hematuria or dysuria. Review of Systems - Constitutional Reports as per HPI, Reports no additional constitutional complaints - Cardiovascular Reports no additional cardiovascular complaints - Respiratory Reports no additional respiratory complaints - Neurologic Reports no additional neurologic complaints, Denies abnormal movements, Reports weakness PMFSH Medical History: Medical History (Last Reviewed 03/02/21 @ 21:03 by Denise Azar, ANTON) Chronic renal insufficiency CLL (chronic lymphocytic leukemia) Diabetes mellitus First degree AV block GERD (gastroesophageal reflux disease) Gout Hyperlipidemia Hypertension Hypothyroid Left anterior fascicular block Pulmonary nodule Skin cancer Thyroid cancer Functional capacity: uses cane/walker Family History: Family History (Last Reviewed 03/02/21 @ 16:29 by Romulo Friedman MD) Father No problems noted. Mother Breast cancer DVT (deep venous thrombosis) Brother Intestinal cancer Sister Breast cancer Sister Breast cancer Surgical History: Surgical History (Last Reviewed 03/02/21 @ 21:03 by Denise Azar RN) H/O thyroidectomy History of knee replacement procedure of left knee Onset Date: ~1994 History of rickets Social History: Social History (Last Reviewed 03/02/21 @ 16:29 by Romulo Friedman MD) Living Situation History: Household Members: Spouse Housing: House Do you presently have visiting nurse or other home services: No Alcohol History: Alcohol intake: unknown Alcohol History Details: Alcohol intake frequency: does not drink Tobacco History: Patient Tobacco Use Status: Never used Tobacco Substance Use History: Use of substances other than those prescribed or required for medical reasons: No Advance Directives: Advance Directives Date on File: 02/17/21 Nutrition Assessment: Patient : No 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: Yes Current occupational status: retired Oncology Screenings - ECOG Performance Status ECOG Performance Status: 1 Home Medications and Allergies Home Medications Medication Instructions Recorded Confirmed Type cholecalciferol (vitamin D3) 50 mcg PO DAILY 06/20/20 03/02/21 History [Vitamin D3] ferrous sulfate 325 mg PO BID 06/20/20 03/02/21 History omeprazole 20 mg PO BID@0630,1630 06/20/20 03/02/21 History Lantus U-100 Insulin 9 unit SUBCUT BID 02/17/21 03/08/21 History atorvastatin 40 mg PO BEDTIME 02/17/21 03/08/21 History empagliflozin 12.5 mg PO DAILY 02/17/21 03/08/21 History insulin aspart U-100 [Novolog 8 unit SUBCUT DAILY@0730 02/17/21 03/08/21 History U-100 Insulin aspart] levothyroxine 175 mcg PO DAILY 02/17/21 03/08/21 History meclizine 12.5 mg PO BEDTIME PRN 02/17/21 03/08/21 History metoprolol succinate [Toprol XL] 12.5 mg PO DAILY 02/17/21 03/08/21 History Allergies Allergy/AdvReac Type Severity Reaction Status Date / Time indomethacin [INDOMETHACIN] Allergy Unknown BLOODY Verified 02/23/21 08:58 STOOLS- TOLD NEVER TO TAKE Exam Vital signs: Vital Signs Temp 97.8 F 03/08/21 08:49 Pulse 64 03/08/21 08:49 Resp 14 03/08/21 08:49 BP 132/61 03/08/21 08:49 Pulse Ox 97 03/08/21 08:49 Intake & Output 03/07/21 03/08/21 03/08/21 18:59 06:59 18:59 Other: Weight 109.6 kg Export Weight in Grams 277140 Weight 109.6 kg Body Mass Index 35.6 - Constitutional Present: no acute distress - Routine HEENT Exam Head: Present: normal inspection - Routine Neck Exam Present: full ROM, normal inspection. Absent: lymphadenopathy - Routine Respiratory Exam Present: CTAB - Routine Cardiovascular Exam Cardiovascular: Present: RRR, S1, S2 - Routine Abdominal Exam Present: distended, soft. Absent: mass - Routine Skin Exam Present: intact. Absent: cyanosis, erythema Data - Labs CBC & Chem 7: 03/08/21 09:17 03/08/21 09:17 Labs: 06/20/20 08:25 Complete Blood Count Man Dif Routine Lactate Dehydrogenase Routine 06/20/20 08:25 Comprehensive Met. Panel Routine 06/20/20 14:51 Add Laboratory Test Stat 08/29/20 08:07 Lactate Dehydrogenase Routine 08/29/20 08:55 Comprehensive Met. Panel Routine Laboratory Last Values WBC 54.5 X10*3/uL (4.8-10.8) H* 08/29/20 08:55 RBC 3.10 X10*6/uL (4.60-5.80) L 08/29/20 08:55 Hgb 10.3 g/dl (14.0-18.0) L 08/29/20 08:55 Hct 31.4 % (42-52) L 08/29/20 08:55 MCV 101.3 fL (80-98) H 08/29/20 08:55 MCH 33.2 pg (27.0-33.0) H 08/29/20 08:55 MCHC 32.8 g/dl (31.0-36.0) 08/29/20 08:55 RDW 14.0 % (11.0-16.0) 08/29/20 08:55 Plt Count 86 X10*3/uL (160-400) L 08/29/20 08:55 MPV 10.7 fL (9.4-12.4) 08/29/20 08:55 Immature Gran % (Auto) Cancelled 08/29/20 08:55 Neut % (Auto) Cancelled 08/29/20 08:55 Lymph % (Auto) Cancelled 08/29/20 08:55 [place] % (Auto) Cancelled 08/29/20 08:55 Eos % (Auto) Cancelled 08/29/20 08:55 Baso % (Auto) Cancelled 08/29/20 08:55 Lymph # (Auto) Cancelled 08/29/20 08:55 [place] # (Auto) Cancelled 08/29/20 08:55 Eos # (Auto) Cancelled 08/29/20 08:55 Baso # (Auto) Cancelled 08/29/20 08:55 Abs Immat Gran (auto) Cancelled 08/29/20 08:55 Absolute Neuts (auto) Cancelled 08/29/20 08:55 Absolute Nucleated RBC 0.000 X10*3/uL (0.0-0.012) 08/29/20 08:55 Nucleated RBC % (auto) 0.0 /100WBC (0.0-0.2) 08/29/20 08:55 Neutrophils % (Manual) 6 % (45-73) L 06/20/20 08:25 Band Neutrophils % 0 % (3-5) L 06/20/20 08:25 Lymphocytes % (Manual) 93 % (20-40) H 06/20/20 08:25 Monocytes % (Manual) 1 % (2-11) L 06/20/20 08:25 Abs Neuts (Manual) 2.5 X10*3/uL (2.2-7.9) 06/20/20 08:25 Lymphocytes # (Manual) 38.2 X10*3/uL (0.6-4.8) H 06/20/20 08:25 Monocytes # (Manual) 0.4 X10*3/uL (0.0-1.2) 06/20/20 08:25 Smudge Cells PRESENT 06/20/20 08:25 Platelet Estimate DECREASED (NORMAL) 06/20/20 08:25 Plt Morphology Comment NORMAL 06/20/20 08:25 RBC Morphology NOTED 06/20/20 08:25 Macrocytosis 1+ 06/20/20 08:25 Sodium 141 mmol/L (135-145) 08/29/20 08:55 Potassium 4.5 mmol/l (3.3-5.1) 08/29/20 08:55 Chloride 110 mmol/L (96-108) H 08/29/20 08:55 Carbon Dioxide 24 mmol/L (22-29) 08/29/20 08:55 Anion Gap 12 (12-20) 08/29/20 08:55 BUN 29 mg/dL (9-16) H 08/29/20 08:55 Creatinine 1.39 mg/dL (0.5-1.4) 08/29/20 08:55 Estim Creat Clear Calc 51.8 08/29/20 08:55 Estimated GFR 49 08/29/20 08:55 Random Glucose 142 mg/dL (60-115) H 08/29/20 08:55 Calcium 8.4 mg/dL (8.4-10.2) 08/29/20 08:55 Total Bilirubin 0.5 mg/dL (0.0-1.0) 08/29/20 08:55 AST 27 U/L (5-37) 08/29/20 08:55 ALT 25 U/L (0-40) 08/29/20 08:55 Alkaline Phosphatase 93 U/L (39-117) 08/29/20 08:55 Lactate Dehydrogenase 238 U/L (118-273) 08/29/20 08:07 Total Protein 5.8 g/dL (6.5-8.0) L 08/29/20 08:55 Albumin 3.9 g/dL (3.5-5.0) 08/29/20 08:55 Progress Note: A/P (1) CLL (chronic lymphocytic leukemia) Status: Chronic Assessment and plan: . This is an 80-year-old male with chronic lymphocytic leukemia, CLL, clinical stage 0. He has lymphocytosis, no significant anemia or thrombocytopenia. Bone marrow biopsy performed in June 2016 confirms the diagnosis. CD 38 negative which is associated with good prognosis. FISH for CLL showed no TP53 mutation/deletion 17 P. 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 He continues to be asymptomatic, no B symptoms. He has worsening leukocytosis. anemia and thrombocytopenia have worsened. Patient started ibrutinib 420 mg daily from 02/10/21. He did develop side effects of hemorrhage, hematuria and urinary retention. He now has indwelling Bashir catheter. He was also treated for possible UTI although his cultures were negative. He developed cytopenias and renal insufficiency which are now improving. He stopped ibrutinib for a few days. At this time we discussed pros and cons of resuming ibrutinib at a lower dose. He will start taking 140 mg once daily for a week and see how he does before increasing it to 280 mg once daily. 2. Liver cirrhosis. Hepatitis serologies negative, AFP not elevated, liver enzymes normal. Probably related to LEO. Last imaging, CT abdomen and pelvis without contrast in February 2020 revealed diffuse lymphadenopathy slightly increased since 2018, stable splenomegaly and cirrhotic appearing liver, stable compared to prior scan. Follow-up in 1 week. - Time Spent With Patient Time Spent with Patient (in minutes): 20
[2021-03-08 09:26] LABS: Basophils Absolute Auto 0.1 X10*3/uL (0.0-0.2); Basophils Percent Auto 0.2 % (0-2); Eosinophils Absolute Auto 0.2 X10*3/uL (0.0-0.4); Eosinophils Percent Auto 0.5 % (0-4); Hematocrit 28.7 % (42-52); Hemoglobin 9.3 g/dl (14.0-18.0); Imm Gran Abs Auto 0.09 X10*3/uL (0.00-0.03); Imm Gran Pct Auto 0.2 % (0.0-0.4); Lymphocytes Percent Auto 78.8 % (20-40); MANUAL DIFF FLAG SCAN; Mean Corpuscular HGB Conc 32.4 g/dl (31.0-36.0); Mean Corpuscular Volume 101.8 fL (80-98); Mean Platelet Volume 11.1 fL (9.4-12.4); Monocytes Absolute Auto 0.5 X10*3/uL (0.1-1.2); Monocytes Percent Auto 1.2 % (2-11); Neutrophils Absolute Auto 7.2 X10*3/uL (2.0-8.3); Neutrophils Percent Auto 19.1 % (45-73); Red Blood Count 2.82 X10*6/uL (4.60-5.80); Red Cell Distribution Width 14.3 % (11.0-16.0); SCAN SMEAR FLAG 1
[2021-03-08 09:31] LABS: Platelet Count 81 X10*3/uL (160-400); White Blood Count 37.7 X10*3/uL (4.8-10.8)
[2021-03-08 09:32] LABS: Lymphocytes Absolute Auto 29.7 X10*3/uL (1.2-4.9)
[2021-03-08 09:56] LABS: Alanine Aminotransferase 25 U/L (0-40); Albumin Level 3.2 g/dL (3.5-5.0); Alkaline Phosphatase 99 U/L (39-117); Anion Gap 11 (12-20); Aspartate Amino Transferase 30 U/L (5-37); Bilirubin Total 0.6 mg/dL (0.0-1.0); Blood Urea Nitrogen 26 mg/dL (9-16); Calcium 8.3 mg/dL (8.4-10.2); Carbon Dioxide 18 mmol/L (22-29); Chloride 115 mmol/L (96-108); Creatinine Clr Calc Pharmacy 48.9; Estimated Glomerular Filt Rate 48; Glucose Random 170 mg/dL (60-115); Potassium 4.3 mmol/L (3.3-5.1); Sodium 140 mmol/L (135-145); Total Protein 5.1 g/dL (6.5-8.0)
[2021-03-08 10:21] LABS: SLIDE REVIEW VERIFIED
--- NOTE | 2021-03-08 15:43 | MHC.HEMONCMA ---
Patient came in for a follow up today, states that he is feeling better.States he has noticed that his sugars have been low, last night was 90 before bed and this morning was 65. I suggested that he contacts the doctor that manages his diabetes about this to make sure everything is okay. Clinical summary was reviewed and updated. Patient had labs and will return in 1 month for a follow up.
--- NOTE | 2021-03-13 09:44 | MHC.HEMONC ---
Dr Kim informed pt PLT today drawn in lab were 48. Time was 0912. No new orders received.
[2021-03-15 09:01] VITALS: BP 179/77; PULSE 60; RESP 14; TEMP 36.3; O2SAT 97; BMI 35.2
--- NOTE | 2021-03-15 09:30 | P.PNHO_ITS ---
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 He has had intermittent mild thrombocytopenia. Bone marrow biopsy performed by Dr. Wong in June 2016 demonstrated hypercellular bone marrow with active trilineage hematopoiesis, increased number of small lymphocytes, 51% of cells, findings consistent with CLL. 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 Flow cytometry revealed normal B cells that coexpressed CD5, CD23 in surface lambda light chain comprising 84% of lymphocytes; CD [address] abdomen/pelvis with contrast performed 09/06/17 showed cirrhotic liver, 1.2x1.9 cm low attenuation lesion in the right lobe of liver. Splenomegaly, diffuse lower chest and upper abdominal lymphadenopathy, largest lymph node in the precaval region measuring 1.4x3.4 cm. Family history of cancer: Genetic testing denied by insurance carrier. Started ibrutinib 420 mg once daily from 02/10/2021. Interval History Interval history: Patient came in today complaining of urinary retention. He had the Bashir catheter removed by his urologist yesterday and has been unable to urinate all night. He has suprapubic discomfort. He denies fever or chills. No flank pain or hematuria. Review of Systems - Constitutional Reports as per HPI, Reports no additional constitutional complaints - Neurologic Reports no additional neurologic complaints, Denies abnormal movements, Reports weakness PMFSH Medical History: Medical History (Last Reviewed 03/14/21 @ 10:21 by CHELSEA Pineda) CRISTOPHER (acute kidney injury) Chronic renal insufficiency CLL (chronic lymphocytic leukemia) Diabetes mellitus First degree AV block GERD (gastroesophageal reflux disease) Gout Hematuria Hyperlipidemia Hypertension Hypothyroid Left anterior fascicular block Pulmonary nodule Skin cancer Thyroid cancer Functional capacity: uses cane/walker Family History: Family History (Last Reviewed 03/14/21 @ 10:21 by CHELSEA Pineda) Father No problems noted. Mother Breast cancer DVT (deep venous thrombosis) Brother Intestinal cancer Sister Breast cancer Sister Breast cancer Surgical History: Surgical History (Last Reviewed 03/14/21 @ 10:21 by CHELSEA Pineda) H/O thyroidectomy History of knee replacement procedure of left knee Onset Date: ~1994 History of rickets Social History: Social History (Last Reviewed 03/14/21 @ 10:21 by CHELSEA Pineda) Living Situation History: Household Members: Spouse Housing: House Do you presently have visiting nurse or other home services: No Alcohol History: Alcohol intake: unknown Alcohol History Details: Alcohol intake frequency: does not drink Tobacco History: Patient Tobacco Use Status: Never used Tobacco Substance Use History: Use of substances other than those prescribed or required for medical reasons : No Advance Directives: Advance Directives Date on File: 02/17/21 Nutrition Assessment: Patient : No 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: Yes Current occupational status: retired Home Medications and Allergies Home Medications Medication Instructions Recorded Confirmed Type cholecalciferol (vitamin D3) 50 50 mcg PO DAILY 06/20/20 03/02/21 History mcg (2,000 unit) tablet (Vitamin D3) ferrous sulfate 325 mg (65 mg 325 mg PO BID 06/20/20 03/02/21 History iron) tablet omeprazole 20 mg tablet,delayed 20 mg PO BID@0630,1630 06/20/20 03/02/21 History release atorvastatin 80 mg tablet 40 mg PO BEDTIME 02/17/21 03/08/21 History empagliflozin 25 mg tablet 12.5 mg PO DAILY 02/17/21 03/08/21 History insulin aspart U-100 100 unit/mL 8 unit SUBCUT DAILY@0730 02/17/21 03/08/21 History subcutaneous solution (Novolog U-100 Insulin aspart) insulin glargine 100 unit/mL 9 unit SUBCUT BID 02/17/21 03/08/21 History subcutaneous solution (Lantus U-100 Insulin) levothyroxine 175 mcg tablet 175 mcg PO DAILY 02/17/21 03/08/21 History meclizine 12.5 mg tablet 12.5 mg PO BEDTIME PRN 02/17/21 03/08/21 History metoprolol succinate 25 mg 12.5 mg PO DAILY 02/17/21 03/08/21 History tablet,extended release 24 hr (Toprol XL) valsartan 80 mg tablet 80 mg PO DAILY 03/14/21 03/15/21 History Allergies Allergy/AdvReac Type Severity Reaction Status Date / Time indomethacin [INDOMETHACIN] Allergy Unknown BLOODY Verified 03/14/21 09:33 STOOLS- TOLD NEVER TO TAKE Exam Vital signs: Vital Signs Temp 97.3 F 03/15/21 09:01 Pulse 60 03/15/21 09:01 Resp 14 03/15/21 09:01 BP 179/77 H 03/15/21 09:01 Pulse Ox 97 03/15/21 09:01 Intake & Output 03/14/21 03/15/21 03/15/21 18:59 06:59 18:59 Other: Weight 108.4 kg Weight in Grams [id number] Weight 108.4 kg Body Mass Index 35.2 - Constitutional Present: mild distress - Routine HEENT Exam Head: Present: normal inspection - Routine Neck Exam Present: full ROM, normal inspection. Absent: lymphadenopathy - Routine Respiratory Exam Present: CTAB - Routine Cardiovascular Exam Cardiovascular: Present: RRR, S1, S2 - Routine Abdominal Exam Present: distended, soft. Absent: mass - Routine Skin Exam Present: intact. Absent: cyanosis, erythema Data - Labs CBC & Chem 7: 03/08/21 09:17 03/08/21 09:17 Labs: 06/20/20 08:25 Complete Blood Count Man Dif Routine Lactate Dehydrogenase Routine 06/20/20 08:25 Comprehensive Met. Panel Routine 06/20/20 14:51 Add Laboratory Test Stat 08/29/20 08:07 Lactate Dehydrogenase Routine 08/29/20 08:55 Comprehensive Met. Panel Routine Laboratory Last Values WBC 54.5 X10*3/uL (4.8-10.8) H* 08/29/20 08:55 RBC 3.10 X10*6/uL (4.60-5.80) L 08/29/20 08:55 Hgb 10.3 g/dl (14.0-18.0) L 08/29/20 08:55 Hct 31.4 % (42-52) L 08/29/20 08:55 MCV 101.3 fL (80-98) H 08/29/20 08:55 MCH 33.2 pg (27.0-33.0) H 08/29/20 08:55 MCHC 32.8 g/dl (31.0-36.0) 08/29/20 08:55 RDW 14.0 % (11.0-16.0) 08/29/20 08:55 Plt Count 86 X10*3/uL (160-400) L 08/29/20 08:55 MPV 10.7 fL (9.4-12.4) 08/29/20 08:55 Immature Gran % (Auto) Cancelled 08/29/20 08:55 Neut % (Auto) Cancelled 08/29/20 08:55 Lymph % (Auto) Cancelled 08/29/20 08:55 [place] % (Auto) Cancelled 08/29/20 08:55 Eos % (Auto) Cancelled 08/29/20 08:55 Baso % (Auto) Cancelled 08/29/20 08:55 Lymph # (Auto) Cancelled 08/29/20 08:55 [place] # (Auto) Cancelled 08/29/20 08:55 Eos # (Auto) Cancelled 08/29/20 08:55 Baso # (Auto) Cancelled 08/29/20 08:55 Abs Immat Gran (auto) Cancelled 08/29/20 08:55 Absolute Neuts (auto) Cancelled 08/29/20 08:55 Absolute Nucleated RBC 0.000 X10*3/uL (0.0-0.012) 08/29/20 08:55 Nucleated RBC % (auto) 0.0 /100WBC (0.0-0.2) 08/29/20 08:55 Neutrophils % (Manual) 6 % (45-73) L 06/20/20 08:25 Band Neutrophils % 0 % (3-5) L 06/20/20 08:25 Lymphocytes % (Manual) 93 % (20-40) H 06/20/20 08:25 Monocytes % (Manual) 1 % (2-11) L 06/20/20 08:25 Abs Neuts (Manual) 2.5 X10*3/uL (2.2-7.9) 06/20/20 08:25 Lymphocytes # (Manual) 38.2 X10*3/uL (0.6-4.8) H 06/20/20 08:25 Monocytes # (Manual) 0.4 X10*3/uL (0.0-1.2) 06/20/20 08:25 Smudge Cells PRESENT 06/20/20 08:25 Platelet Estimate DECREASED (NORMAL) 06/20/20 08:25 Plt Morphology Comment NORMAL 06/20/20 08:25 RBC Morphology NOTED 06/20/20 08:25 Macrocytosis 1+ 06/20/20 08:25 Sodium 141 mmol/L (135-145) 08/29/20 08:55 Potassium 4.5 mmol/l (3.3-5.1) 08/29/20 08:55 Chloride 110 mmol/L (96-108) H 08/29/20 08:55 Carbon Dioxide 24 mmol/L (22-29) 08/29/20 08:55 Anion Gap 12 (12-20) 08/29/20 08:55 BUN 29 mg/dL (9-16) H 08/29/20 08:55 Creatinine 1.39 mg/dL (0.5-1.4) 08/29/20 08:55 Estim Creat Clear Calc 51.8 08/29/20 08:55 Estimated GFR 49 08/29/20 08:55 Random Glucose 142 mg/dL (60-115) H 08/29/20 08:55 Calcium 8.4 mg/dL (8.4-10.2) 08/29/20 08:55 Total Bilirubin 0.5 mg/dL (0.0-1.0) 08/29/20 08:55 AST 27 U/L (5-37) 08/29/20 08:55 ALT 25 U/L (0-40) 08/29/20 08:55 Alkaline Phosphatase 93 U/L (39-117) 08/29/20 08:55 Lactate Dehydrogenase 238 U/L (118-273) 08/29/20 08:07 Total Protein 5.8 g/dL (6.5-8.0) L 08/29/20 08:55 Albumin 3.9 g/dL (3.5-5.0) 08/29/20 08:55 Progress Note: A/P (1) CLL (chronic lymphocytic leukemia) Status: Chronic Assessment and plan: . This is an 80-year-old male with chronic lymphocytic leukemia, CLL, clinical stage 0. He has lymphocytosis, no significant anemia or thrombocytopenia. Bone marrow biopsy performed in June 2016 confirms the diagnosis. CD 38 negative which is associated with good prognosis. FISH for CLL showed no TP53 mutation/deletion 17 P. 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 He continues to be asymptomatic, no B symptoms. He has worsening leukocytosis. anemia and thrombocytopenia have worsened. Patient started ibrutinib 420 mg daily from 02/10/21. He did develop side effe cts of hemorrhage, hematuria and urinary retention. He resumed ibrutinib 140 mg once daily from 03/08/2021. He was advised to start taking 2 tablets daily from 03/15/2021. 2. Liver cirrhosis. Hepatitis serologies negative, AFP not elevated, liver enzymes normal. Probably related to LEO. Last imaging, CT abdomen and pelvis without contrast in February 2020 revealed diffuse lymphadenopathy slightly increased since 2018, stable splenomegaly and cirrhotic appearing liver, stable compared to prior scan. 3. Urinary retention. Patient had Bashir catheter removed yesterday and he has not been able to urinate ever since although he has the urge as well as suprapubic discomfort. Bashir catheter is being placed back at the recommendation of his urologist, appointment made for him to be seen by Urology in 2 weeks. Follow-up in 1 week. - Time Spent With Patient Time Spent with Patient (in minutes): 20
--- NOTE | 2021-03-15 11:51 | MHC.HEMONCMA ---
Patient came in for a concern of his urinating. He states he had his norris removed yesterday at 10am and has not been able to void since. Bladder scan was performed on him which showed his bladder has 778 ml of urine. I called and spoke with Urology and they asked for us to place another norris and that he will come back in 2 weeks on 03/30 for a follow up. Clinical summary was reviewed and updated. Patient did not have labs and will return in 1 month for a follow up.
--- NOTE | 2021-03-15 14:33 | MHC.HEMONC ---
Bashir cath 16fr placed using sterile technique. 950cc clear yellow urine obtained. Educated pt on changing to leg bag. Bedside drainage bag sent home with pt. Tolerated procedure well.
[2021-03-22 13:26] VITALS: BP 140/65; PULSE 56; RESP 14; TEMP 36.4; O2SAT 98; BMI 34.9
[2021-03-22 13:52] LABS: Basophils Absolute Auto 0.1 X10*3/uL (0.0-0.2); Basophils Percent Auto 0.2 % (0-2); Eosinophils Absolute Auto 0.1 X10*3/uL (0.0-0.4); Eosinophils Percent Auto 0.3 % (0-4); Hematocrit 29.8 % (42-52); Hemoglobin 9.6 g/dl (14.0-18.0); Imm Gran Abs Auto 0.04 X10*3/uL (0.00-0.03); Imm Gran Pct Auto 0.1 % (0.0-0.4); Lymphocytes Percent Auto 89.3 % (20-40); MANUAL DIFF FLAG SCAN; Mean Corpuscular HGB Conc 32.2 g/dl (31.0-36.0); Mean Corpuscular Hemoglobin 33.2 pg (27.0-33.0); Mean Corpuscular Volume 103.1 fL (80-98); Mean Platelet Volume 11.6 fL (9.4-12.4); Monocytes Absolute Auto 0.4 X10*3/uL (0.1-1.2); Neutrophils Absolute Auto 3.7 X10*3/uL (2.0-8.3); Neutrophils Percent Auto 9.1 % (45-73); Red Blood Count 2.89 X10*6/uL (4.60-5.80); SCAN SMEAR FLAG 1
[2021-03-22 14:05] LABS: Platelet Count 63 X10*3/uL (160-400)
[2021-03-22 14:06] LABS: White Blood Count 40.3 X10*3/uL (4.8-10.8)
[2021-03-22 14:28] LABS: Alanine Aminotransferase 30 U/L (0-40); Albumin Level 3.5 g/dL (3.5-5.0); Alkaline Phosphatase 103 U/L (39-117); Anion Gap 11 (12-20); Aspartate Amino Transferase 31 U/L (5-37); Bilirubin Total 0.7 mg/dL (0.0-1.0); Blood Urea Nitrogen 25 mg/dL (9-16); Calcium 8.2 mg/dL (8.4-10.2); Carbon Dioxide 23 mmol/L (22-29); Chloride 109 mmol/L (96-108); Creatinine Clr Calc Pharmacy 46.1; Estimated Glomerular Filt Rate 45; Glucose Random 211 mg/dL (60-115); Potassium 4.5 mmol/L (3.3-5.1); Sodium 138 mmol/L (135-145); Total Protein 5.4 g/dL (6.5-8.0)
[2021-03-22 14:32] LABS: SLIDE REVIEW VERIFIED
--- NOTE | 2021-03-22 16:02 | P.PNHO_ITS ---
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 He has had intermittent mild thrombocytopenia. Bone marrow biopsy performed by Dr. Wong in June 2016 demonstrated hypercellular bone marrow with active trilineage hematopoiesis, increased number of small lymphocytes, 51% of cells, findings consistent with CLL. 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 Flow cytometry revealed normal B cells that coexpressed CD5, CD23 in surface lambda light chain comprising 84% of lymphocytes; CD [address] abdomen/pelvis with contrast performed 09/06/17 showed cirrhotic liver, 1.2x1.9 cm low attenuation lesion in the right lobe of liver. Splenomegaly, diffuse lower chest and upper abdominal lymphadenopathy, largest lymph node in the precaval region measuring 1.4x3.4 cm. Family history of cancer: Genetic testing denied by insurance carrier. Started ibrutinib 420 mg once daily from 02/10/2021. Interval History Interval history: Patient is here in follow-up. He is feeling better now. He denies any hematuria. Bashir catheter is back in place. He denies abdominal discomfort, nausea or excess fatigue. He is walking more. He is now taking 2 capsules of ibrutinib once a day. Review of Systems - Constitutional Reports as per HPI, Reports no additional constitutional complaints - Neurologic Reports no additional neurologic complaints, Denies abnormal movements, Reports weakness PMFSH Medical History: Medical History (Last Reviewed 03/22/21 @ 13:[address]) CRISTOPHER (acute kidney injury) Chronic renal insufficiency CLL (chronic lymphocytic leukemia) Diabetes mellitus First degree AV block GERD (gastroesophageal reflux disease) Gout Hematuria Hyperlipidemia Hypertension Hypothyroid Left anterior fascicular block Pulmonary nodule Skin cancer Thyroid cancer Functional capacity: uses cane/walker Family History: Family History (Last Reviewed 03/22/21 @ 13:[address]) Father No problems noted. Mother Breast cancer DVT (deep venous thrombosis) Brother Intestinal cancer Sister Breast cancer Sister Breast cancer Surgical History: Surgical History (Last Reviewed 03/22/21 @ 13:[address]) H/O thyroidectomy History of knee replacement procedure of left knee Onset Date: ~1994 History of rickets Social History: Social History (Last Reviewed 03/22/21 @ 13:[address]) Living Situation History: Household Members: Spouse Housing: House Do you presently have visiting nurse or other home services: No Alcohol History: Alcohol intake: unknown Alcohol History Details: Alcohol intake frequency: does not drink Tobacco History: Patient Tobacco Use Status: Never used Tobacco Substance Use History: Use of substances other than those prescribed or required for medical reasons : No Advance Directives: Advance Directives Date on File: 02/17/21 Nutrition Assessment: Patient : No 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: Yes Current occupational status: retired Home Medications and Allergies Home Medications Medication Instructions Recorded Confirmed Type cholecalciferol (vitamin D3) 50 50 mcg PO DAILY 06/20/20 03/22/21 History mcg (2,000 unit) tablet (Vitamin D3) ferrous sulfate 325 mg (65 mg 325 mg PO BID 06/20/20 03/22/21 History iron) tablet omeprazole 20 mg tablet,delayed 20 mg PO BID@0630,1630 06/20/20 03/22/21 History release atorvastatin 80 mg tablet 40 mg PO BEDTIME 02/17/21 03/22/21 History empagliflozin 25 mg tablet 12.5 mg PO DAILY 02/17/21 03/22/21 History insulin aspart U-100 100 unit/mL 8 unit SUBCUT DAILY@0730 02/17/21 03/22/21 History subcutaneous solution (Novolog U-100 Insulin aspart) insulin glargine 100 unit/mL 9 unit SUBCUT BID 02/17/21 03/22/21 History subcutaneous solution (Lantus U-100 Insulin) levothyroxine 175 mcg tablet 175 mcg PO DAILY 02/17/21 03/22/21 History meclizine 12.5 mg tablet 12.5 mg PO BEDTIME PRN 02/17/21 03/22/21 History metoprolol succinate 25 mg 12.5 mg PO DAILY 02/17/21 03/22/21 History tablet,extended release 24 hr (Toprol XL) valsartan 80 mg tablet 80 mg PO DAILY 03/14/21 03/22/21 History Allergies Allergy/AdvReac Type Severity Reaction Status Date / Time indomethacin [INDOMETHACIN] Allergy Unknown BLOODY Verified 03/14/21 09:33 STOOLS- TOLD NEVER TO TAKE Exam Vital signs: Vital Signs Temp 97.6 F 03/22/21 13:26 Pulse 56 03/22/21 13:26 Resp 14 03/22/21 13:26 BP 140/65 H 03/22/21 13:26 Pulse Ox 98 03/22/21 13:26 Intake & Output 03/21/21 03/22/21 03/22/21 18:59 06:59 18:59 Other: Weight 107.5 kg [place] Weight in Grams [id number] Weight 107.5 kg Body Mass Index 34.9 - Constitutional Present: mild distress - Routine HEENT Exam Head: Present: normal inspection - Routine Neck Exam Present: full ROM, normal inspection. Absent: lymphadenopathy - Routine Respiratory Exam Present: CTAB - Routine Cardiovascular Exam Cardiovascular: Present: RRR, S1, S2 - Routine Abdominal Exam Present: distended, soft. Absent: mass - Routine Skin Exam Present: intact. Absent: cyanosis, erythema Data - Labs CBC & Chem 7: 03/22/21 13:44 03/22/21 13:44 Labs: 06/20/20 08:25 Complete Blood Count Man Dif Routine Lactate Dehydrogenase Routine 06/20/20 08:25 Comprehensive Met. Panel Routine 06/20/20 14:51 Add Laboratory Test Stat 08/29/20 08:07 Lactate Dehydrogenase Routine 08/29/20 08:55 Comprehensive Met. Panel Routine Laboratory Last Values WBC 54.5 X10*3/uL (4.8-10.8) H* 08/29/20 08:55 RBC 3.10 X10*6/uL (4.60-5.80) L 08/29/20 08:55 Hgb 10.3 g/dl (14.0-18.0) L 08/29/20 08:55 Hct 31.4 % (42-52) L 08/29/20 08:55 MCV 101.3 fL (80-98) H 08/29/20 08:55 MCH 33.2 pg (27.0-33.0) H 08/29/20 08:55 MCHC 32.8 g/dl (31.0-36.0) 08/29/20 08:55 RDW 14.0 % (11.0-16.0) 08/29/20 08:55 Plt Count 86 X10*3/uL (160-400) L 08/29/20 08:55 MPV 10.7 fL (9.4-12.4) 08/29/20 08:55 Immature Gran % (Auto) Cancelled 08/29/20 08:55 Neut % (Auto) Cancelled 08/29/20 08:55 Lymph % (Auto) Cancelled 08/29/20 08:55 [place] % (Auto) Cancelled 08/29/20 08:55 Eos % (Auto) Cancelled 08/29/20 08:55 Baso % (Auto) Cancelled 08/29/20 08:55 Lymph # (Auto) Cancelled 08/29/20 08:55 [place] # (Auto) Cancelled 08/29/20 08:55 Eos # (Auto) Cancelled 08/29/20 08:55 Baso # (Auto) Cancelled 08/29/20 08:55 Abs Immat Gran (auto) Cancelled 08/29/20 08:55 Absolute Neuts (auto) Cancelled 08/29/20 08:55 Absolute Nucleated RBC 0.000 X10*3/uL (0.0-0.012) 08/29/20 08:55 Nucleated RBC % (auto) 0.0 /100WBC (0.0-0.2) 08/29/20 08:55 Neutrophils % (Manual) 6 % (45-73) L 06/20/20 08:25 Band Neutrophils % 0 % (3-5) L 06/20/20 08:25 Lymphocytes % (Manual) 93 % (20-40) H 06/20/20 08:25 Monocytes % (Manual) 1 % (2-11) L 06/20/20 08:25 Abs Neuts (Manual) 2.5 X10*3/uL (2.2-7.9) 06/20/20 08:25 Lymphocytes # (Manual) 38.2 X10*3/uL (0.6-4.8) H 06/20/20 08:25 Monocytes # (Manual) 0.4 X10*3/uL (0.0-1.2) 06/20/20 08:25 Smudge Cells PRESENT 06/20/20 08:25 Platelet Estimate DECREASED (NORMAL) 06/20/20 08:25 Plt Morphology Comment NORMAL 06/20/20 08:25 RBC Morphology NOTED 06/20/20 08:25 Macrocytosis 1+ 06/20/20 08:25 Sodium 141 mmol/L (135-145) 08/29/20 08:55 Potassium 4.5 mmol/l (3.3-5.1) 08/29/20 08:55 Chloride 110 mmol/L (96-108) H 08/29/20 08:55 Carbon Dioxide 24 mmol/L (22-29) 08/29/20 08:55 Anion Gap 12 (12-20) 08/29/20 08:55 BUN 29 mg/dL (9-16) H 08/29/20 08:55 Creatinine 1.39 mg/dL (0.5-1.4) 08/29/20 08:55 Estim Creat Clear Calc 51.8 08/29/20 08:55 Estimated GFR 49 08/29/20 08:55 Random Glucose 142 mg/dL (60-115) H 08/29/20 08:55 Calcium 8.4 mg/dL (8.4-10.2) 08/29/20 08:55 Total Bilirubin 0.5 mg/dL (0.0-1.0) 08/29/20 08:55 AST 27 U/L (5-37) 08/29/20 08:55 ALT 25 U/L (0-40) 08/29/20 08:55 Alkaline Phosphatase 93 U/L (39-117) 08/29/20 08:55 Lactate Dehydrogenase 238 U/L (118-273) 08/29/20 08:07 Total Protein 5.8 g/dL (6.5-8.0) L 08/29/20 08:55 Albumin 3.9 g/dL (3.5-5.0) 08/29/20 08:55 Progress Note: A/P (1) CLL (chronic lymphocytic leukemia) Status: Chronic Assessment and plan: . This is an 80-year-old male with chronic lymphocytic leukemia, CLL, clinical stage 0. He has lymphocytosis, no significant anemia or thrombocytopenia. Bone marrow biopsy performed in June 2016 confirms the diagnosis. CD 38 negative which is associated with good prognosis. FISH for CLL showed no TP53 mutation/deletion 17 P. 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 He continues to be asymptomatic, no B symptoms. He has worsening leukocytosis. anemia and thrombocytopenia have worsened. Patient started ibrutinib 420 mg daily from 02/10/21. He did develop side effects of hemorrhage, hematuria and urinary retention. He resumed ibrutinib 140 mg once daily from 03/08/2021. He was advised to start taking 2 tablets daily from 03/15/2021. He was advised to continue with the same dose for now. 2. Liver cirrhosis. Hepatitis serologies negative, AFP not elevated, liver enzymes normal. Probably related to LEO. Last imaging, CT abdomen and pelvis without contrast in February 2020 revealed diffuse lymphadenopathy slightly increased since 2018, stable splenomegaly and cirrhotic appearing liver, stable compared to prior scan. 3. Urinary retention. Bashir catheter has been placed back, he has a follow-up with Dr. Jenkins in a week. Follow-up in 2 weeks. - Time Spent With Patient Time Spent with Patient (in minutes): 15
[2021-04-05 10:23] VITALS: BP 131/63; PULSE 68; RESP 14; TEMP 36.2; O2SAT 97; BMI 34.2
[2021-04-05 10:34] LABS: Basophils Absolute Auto 0.1 X10*3/uL (0.0-0.2); Basophils Percent Auto 0.3 % (0-2); Eosinophils Absolute Auto 0.2 X10*3/uL (0.0-0.4); Eosinophils Percent Auto 0.5 % (0-4); Hematocrit 31.5 % (42-52); Hemoglobin 10.1 g/dl (14.0-18.0); Imm Gran Abs Auto 0.05 X10*3/uL (0.00-0.03); Imm Gran Pct Auto 0.1 % (0.0-0.4); Lymphocytes Percent Auto 88.5 % (20-40); MANUAL DIFF FLAG SCAN; Mean Corpuscular HGB Conc 32.1 g/dl (31.0-36.0); Mean Corpuscular Hemoglobin 32.8 pg (27.0-33.0); Mean Corpuscular Volume 102.3 fL (80-98); Mean Platelet Volume 11.4 fL (9.4-12.4); Monocytes Absolute Auto 0.7 X10*3/uL (0.1-1.2); Neutrophils Absolute Auto 2.9 X10*3/uL (2.0-8.3); Neutrophils Percent Auto 8.6 % (45-73); Red Blood Count 3.08 X10*6/uL (4.60-5.80); Red Cell Distribution Width 14.1 % (11.0-16.0); SCAN SMEAR FLAG 1
[2021-04-05 10:40] LABS: Lymphocytes Absolute Auto 30.2 X10*3/uL (1.2-4.9); Platelet Count 83 X10*3/uL (160-400); White Blood Count 34.1 X10*3/uL (4.8-10.8)
--- NOTE | 2021-04-05 10:58 | P.PNHO_ITS ---
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 He has had intermittent mild thrombocytopenia. Bone marrow biopsy performed by Dr. Wong in June 2016 demonstrated hypercellular bone marrow with active trilineage hematopoiesis, increased number of small lymphocytes, 51% of cells, findings consistent with CLL. 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 Flow cytometry revealed normal B cells that coexpressed CD5, CD23 in surface lambda light chain comprising 84% of lymphocytes; CD [address] abdomen/pelvis with contrast performed 09/06/17 showed cirrhotic liver, 1.2x1.9 cm low attenuation lesion in the right lobe of liver. Splenomegaly, diffuse lower chest and upper abdominal lymphadenopathy, largest lymph node in the precaval region measuring 1.4x3.4 cm. Family history of cancer: Genetic testing denied by insurance carrier. Started ibrutinib 420 mg once daily from 02/10/2021. Interval History Interval history: Patient is here in follow-up. He is doing pretty good overall. Bashir catheter was removed last week and he is able to urinate on his own. He denies any fever, chills, suprapubic pain or hematuria. He is taking ibrutinib daily. He denies any other side effects from it. Review of Systems - Constitutional Reports no additional constitutional complaints - Neurologic Reports no additional neurologic complaints, Denies abnormal movements, Reports weakness PMFSH Medical History: Medical History (Last Reviewed 04/05/21 @ 10:[address]) CRISTOPHER (acute kidney injury) Chronic renal insufficiency CLL (chronic lymphocytic leukemia) Diabetes mellitus First degree AV block GERD (gastroesophageal reflux disease) Gout Hematuria Hyperlipidemia Hypertension Hypothyroid Left anterior fascicular block Pulmonary nodule Skin cancer Thyroid cancer Functional capacity: uses cane/walker Family History: Family History (Last Reviewed 04/05/21 @ 10:[address]) Father No problems noted. Mother Breast cancer DVT (deep venous thrombosis) Brother Intestinal cancer Sister Breast cancer Sister Breast cancer Surgical History: Surgical History (Last Reviewed 04/05/21 @ 10:[address]) H/O thyroidectomy History of knee replacement procedure of left knee Onset Date: ~1994 History of rickets Social History: Social History (Last Reviewed 04/05/21 @ 10:[address]) Living Situation History: Household Members: Spouse Housing: House Do you presently have visiting nurse or other home services: No Alcohol History: Alcohol intake: unknown Alcohol History Details: Alcohol intake frequency: does not drink Tobacco History: Patient Tobacco Use Status: Never used Tobacco Substance Use History: Use of substances other than those prescribed or required for medical reasons : No Advance Directives: Advance Directives Date on File: 02/17/21 Nutrition Assessment: Patient : No 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: Yes Current occupational status: retired Oncology Screenings - ECOG Performance Status ECOG Performance Status: 1 Home Medications and Allergies Home Medications Medication Instructions Recorded Confirmed Type cholecalciferol (vitamin D3) 50 50 mcg PO DAILY 06/20/20 04/05/21 History mcg (2,000 unit) tablet (Vitamin D3) ferrous sulfate 325 mg (65 mg 325 mg PO BID 06/20/20 04/05/21 History iron) tablet omeprazole 20 mg tablet,delayed 20 mg PO BID@0630,1630 06/20/20 04/05/21 History release atorvastatin 80 mg tablet 40 mg PO BEDTIME 02/17/21 04/05/21 History empagliflozin 25 mg tablet 12.5 mg PO DAILY 02/17/21 04/05/21 History insulin aspart U-100 100 unit/mL 8 unit SUBCUT DAILY@0730 02/17/21 04/05/21 History subcutaneous solution (Novolog U-100 Insulin aspart) insulin glargine 100 unit/mL 9 unit SUBCUT BID 02/17/21 04/05/21 History subcutaneous solution (Lantus U-100 Insulin) levothyroxine 175 mcg tablet 175 mcg PO DAILY 02/17/21 04/05/21 History meclizine 12.5 mg tablet 12.5 mg PO BEDTIME PRN 02/17/21 04/05/21 History metoprolol succinate 25 mg 12.5 mg PO DAILY 02/17/21 04/05/21 History tablet,extended release 24 hr (Toprol XL) valsartan 80 mg tablet 80 mg PO DAILY 03/14/21 04/05/21 History Allergies Allergy/AdvReac Type Severity Reaction Status Date / Time indomethacin [INDOMETHACIN] Allergy Unknown BLOODY Verified 03/30/21 08:31 STOOLS- TOLD NEVER TO TAKE Exam Vital signs: Vital Signs Temp 97.1 F 04/05/21 10:23 Pulse 68 04/05/21 10:23 Resp 14 04/05/21 10:23 BP 131/63 04/05/21 10:23 Pulse Ox 97 04/05/21 10:23 Intake & Output 04/04/21 04/05/21 04/05/21 18:59 06:59 18:59 Other: Weight 105.2 kg Weight in Grams [id number] Weight 105.2 kg Body Mass Index 34.2 - Constitutional Present: mild distress - Routine HEENT Exam Head: Present: normal inspection - Routine Neck Exam Present: full ROM, normal inspection. Absent: lymphadenopathy - Routine Respiratory Exam Present: CTAB - Routine Cardiovascular Exam Cardiovascular: Present: RRR, S1, S2 - Routine Abdominal Exam Present: distended, soft. Absent: mass - Routine Skin Exam Present: intact. Absent: cyanosis, erythema Data - Labs CBC & Chem 7: 04/05/21 10:18 04/05/21 10:18 Labs: 06/20/20 08:25 Complete Blood Count Man Dif Routine Lactate Dehydrogenase Routine 06/20/20 08:25 Comprehensive Met. Panel Routine 06/20/20 14:51 Add Laboratory Test Stat 08/29/20 08:07 Lactate Dehydrogenase Routine 08/29/20 08:55 Comprehensive Met. Panel Routine Laboratory Last Values WBC 54.5 X10*3/uL (4.8-10.8) H* 08/29/20 08:55 RBC 3.10 X10*6/uL (4.60-5.80) L 08/29/20 08:55 Hgb 10.3 g/dl (14.0-18.0) L 08/29/20 08:55 Hct 31.4 % (42-52) L 08/29/20 08:55 MCV 101.3 fL (80-98) H 08/29/20 08:55 MCH 33.2 pg (27.0-33.0) H 08/29/20 08:55 MCHC 32.8 g/dl (31.0-36.0) 08/29/20 08:55 RDW 14.0 % (11.0-16.0) 08/29/20 08:55 Plt Count 86 X10*3/uL (160-400) L 08/29/20 08:55 MPV 10.7 fL (9.4-12.4) 08/29/20 08:55 Immature Gran % (Auto) Cancelled 08/29/20 08:55 Neut % (Auto) Cancelled 08/29/20 08:55 Lymph % (Auto) Cancelled 08/29/20 08:55 [place] % (Auto) Cancelled 08/29/20 08:55 Eos % (Auto) Cancelled 08/29/20 08:55 Baso % (Auto) Cancelled 08/29/20 08:55 Lymph # (Auto) Cancelled 08/29/20 08:55 [place] # (Auto) Cancelled 08/29/20 08:55 Eos # (Auto) Cancelled 08/29/20 08:55 Baso # (Auto) Cancelled 08/29/20 08:55 Abs Immat Gran (auto) Cancelled 08/29/20 08:55 Absolute Neuts (auto) Cancelled 08/29/20 08:55 Absolute Nucleated RBC 0.000 X10*3/uL (0.0-0.012) 08/29/20 08:55 Nucleated RBC % (auto) 0.0 /100WBC (0.0-0.2) 08/29/20 08:55 Neutrophils % (Manual) 6 % (45-73) L 06/20/20 08:25 Band Neutrophils % 0 % (3-5) L 06/20/20 08:25 Lymphocytes % (Manual) 93 % (20-40) H 06/20/20 08:25 Monocytes % (Manual) 1 % (2-11) L 06/20/20 08:25 Abs Neuts (Manual) 2.5 X10*3/uL (2.2-7.9) 06/20/20 08:25 Lymphocytes # (Manual) 38.2 X10*3/uL (0.6-4.8) H 06/20/20 08:25 Monocytes # (Manual) 0.4 X10*3/uL (0.0-1.2) 06/20/20 08:25 Smudge Cells PRESENT 06/20/20 08:25 Platelet Estimate DECREASED (NORMAL) 06/20/20 08:25 Plt Morphology Comment NORMAL 06/20/20 08:25 RBC Morphology NOTED 06/20/20 08:25 Macrocytosis 1+ 06/20/20 08:25 Sodium 141 mmol/L (135-145) 08/29/20 08:55 Potassium 4.5 mmol/l (3.3-5.1) 08/29/20 08:55 Chloride 110 mmol/L (96-108) H 08/29/20 08:55 Carbon Dioxide 24 mmol/L (22-29) 08/29/20 08:55 Anion Gap 12 (12-20) 08/29/20 08:55 BUN 29 mg/dL (9-16) H 08/29/20 08:55 Creatinine 1.39 mg/dL (0.5-1.4) 08/29/20 08:55 Estim Creat Clear Calc 51.8 08/29/20 08:55 Estimated GFR 49 08/29/20 08:55 Random Glucose 142 mg/dL (60-115) H 08/29/20 08:55 Calcium 8.4 mg/dL (8.4-10.2) 08/29/20 08:55 Total Bilirubin 0.5 mg/dL (0.0-1.0) 08/29/20 08:55 AST 27 U/L (5-37) 08/29/20 08:55 ALT 25 U/L (0-40) 08/29/20 08:55 Alkaline Phosphatase 93 U/L (39-117) 08/29/20 08:55 Lactate Dehydrogenase 238 U/L (118-273) 08/29/20 08:07 Total Protein 5.8 g/dL (6.5-8.0) L 08/29/20 08:55 Albumin 3.9 g/dL (3.5-5.0) 08/29/20 08:55 Progress Note: A/P (1) CLL (chronic lymphocytic leukemia) Status: Chronic Assessment and plan: . This is an 80-year-old male with chronic lymphocytic leukemia, CLL, clinical stage 0. He has lymphocytosis, no significant anemia or thrombocytopenia. Bone marrow biopsy performed in June 2016 confirms the diagnosis. CD 38 negative which is associated with good prognosis. FISH for CLL showed no TP53 mutation/d eletion 17 P. 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 He continues to be asymptomatic, no B symptoms. He has worsening leukocytosis. anemia and thrombocytopenia have worsened. Patient started ibrutinib 420 mg daily from 02/10/21. He did develop side effects of hemorrhage, hematuria and urinary retention. He resumed ibrutinib 140 mg once daily from 03/08/2021. He was advised to start taking 2 tablets daily from 03/15/2021. He was advised to continue with the same dose for now. 2. Liver cirrhosis. Hepatitis serologies negative, AFP not elevated, liver enzymes normal. Probably related to LEO. Last imaging, CT abdomen and pelvis without contrast in February 2020 revealed diffuse lymphadenopathy slightly increased since 2018, stable splenomegaly and cirrhotic appearing liver, stable compared to prior scan. 3. Urinary retention. Bashir catheter has been removed. 4. Renal insufficiency. He has had slight worsening today this will be m onitored closely. Follow-up in 4 weeks. - Time Spent With Patient Time Spent with Patient (in minutes): 15
[2021-04-05 11:18] LABS: Alanine Aminotransferase 26 U/L (0-40); Albumin Level 3.7 g/dL (3.5-5.0); Alkaline Phosphatase 105 U/L (39-117); Anion Gap 11 (12-20); Aspartate Amino Transferase 24 U/L (5-37); Bilirubin Total 0.6 mg/dL (0.0-1.0); Blood Urea Nitrogen 29 mg/dL (9-16); Calcium 8.4 mg/dL (8.4-10.2); Carbon Dioxide 22 mmol/L (22-29); Chloride 108 mmol/L (96-108); Creatinine Clr Calc Pharmacy 36.2; Estimated Glomerular Filt Rate 35; Glucose Random 148 mg/dL (60-115); Potassium 4.4 mmol/L (3.3-5.1); Sodium 137 mmol/L (135-145); Total Protein 5.7 g/dL (6.5-8.0)
[2021-04-05 11:28] LABS: SLIDE REVIEW VERIFIED
--- NOTE | 2021-04-05 16:12 | MHC.HEMONCMA ---
Patient came in for a follow up, states he is not feeling well. He was at the ER on Saturday for urinary retention and has a norris catheter. He states that he feels like it is leaking and/or falling out. Clinical summary was reviewed and updated. Patient had labs and will return in 1 month for a follow up.
--- NOTE | 2021-04-05 16:18 | MHC.HEMONCMA ---
Patient came in for a follow up, states he is doing really well. States that the catheter was removed and he is able to urinate. Clinincal summary was reviewed and updated. Patient had labs and will return in 1 month.
--- NOTE | 2021-04-14 13:07 | MHC.HEMONC ---
pt had tooth extraction yesterday although I told him Dr Kim did not want him to due to low PLT cnt.I did tell the pt but was unable to get through to [facility] and we did not sign any clearance. I will call to check on him and inform Dr Kim.
--- NOTE | 2021-04-14 13:41 | MHC.HEMONC ---
Spoke to pt, he is feeling well. He had his tooth extracted yesterday. We did not give clearance as hisPLT cnt was low. I did tell him this. He said Dr Restrepo ordered something to prevent bleeding but he did not know what it was. I told him to call with any c/o.
--- NOTE | 2021-05-08 10:08 | PM.HEMONCPN ---
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 He has had intermittent mild thrombocytopenia. Bone marrow biopsy performed by Dr. Wong in June 2016 demonstrated hypercellular bone marrow with active trilineage hematopoiesis, increased number of small lymphocytes, 51% of cells, findings consistent with CLL. 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 Flow cytometry revealed normal B cells that coexpressed CD5, CD23 in surface lambda light chain comprising 84% of lymphocytes; CD [address] abdomen/pelvis with contrast performed 09/06/17 showed cirrhotic liver, 1.2x1.9 cm low attenuation lesion in the right lobe of liver. Splenomegaly, diffuse lower chest and upper abdominal lymphadenopathy, largest lymph node in the precaval region measuring 1.4x3.4 cm. Family history of cancer: Genetic testing denied by insurance carrier. Started ibrutinib 420 mg once daily from 02/10/2021. Interval History Interval history: Patient is here in follow-up. He is doing pretty good overall. He feels he is back to his baseline self. He denies any fever, chills, suprapubic pain or hematuria. He is taking ibrutinib daily and reports no side effects anymore. Review of Systems - Constitutional Reports as per HPI, Reports no additional constitutional complaints - Cardiovascular Reports no additional cardiovascular complaints - Respiratory Reports no additional respiratory complaints - Gastrointestinal Reports no additional gastrointestinal complaints - Genitourinary Genitourinary: Reports no additional male genitourinary complaints - Neurologic Reports no additional neurologic complaints, Denies abnormal movements, Reports weakness PMFSH Medical History: Medical History (Last Reviewed 05/08/21 @ 10:[address]) CRISTOPHER (acute kidney injury) Chronic renal insufficiency CLL (chronic lymphocytic leukemia) Diabetes mellitus First degree AV block GERD (gastroesophageal reflux disease) Gout Hematuria Hyperlipidemia Hypertension Hypothyroid Left anterior fascicular block Pulmonary nodule Skin cancer Thyroid cancer Functional capacity: uses cane/walker Family History: Family History (Last Reviewed 05/08/21 @ 10:[address]) Father No problems noted. Mother Breast cancer DVT (deep venous thrombosis) Brother Intestinal cancer Sister Breast cancer Sister Breast cancer Surgical History: Surgical History (Last Reviewed 05/08/21 @ 10:[address]) H/O thyroidectomy History of knee replacement procedure of left knee Onset Date: ~1994 History of rickets Social History: Social History (Last Reviewed 05/08/21 @ 10:[address]) Living Situation History: Household Members: Spouse Housing: House Do you presently have visiting nurse or other home services: No Alcohol History: Alcohol intake: unknown Alcohol History Details: Alcohol intake frequency: does not drink Tobacco History: Patient Tobacco Use Status: Never used Tobacco Substance Use History: Use of substances other than those prescribed or required for medical reasons: No Advance Directives: Advance Directives Date on File: 02/17/21 Nutrition Assessment: Patient : No 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: Yes Current occupational status: retired Oncology Screenings - ECOG Performance Status ECOG Performance Status: 1 Home Medications and Allergies Home Medications Medication Instructions Recorded Confirmed Type cholecalciferol (vitamin D3) 50 50 mcg PO DAILY 06/20/20 05/08/21 History mcg (2,000 unit) tablet (Vitamin D3) ferrous sulfate 325 mg (65 mg 325 mg PO BID 06/20/20 05/08/21 History iron) tablet omeprazole 20 mg tablet,delayed 20 mg PO BID@0630,1630 06/20/20 05/08/21 History release atorvastatin 80 mg tablet 40 mg PO BEDTIME 02/17/21 05/08/21 History empagliflozin 25 mg tablet 12.5 mg PO DAILY 02/17/21 05/08/21 History insulin aspart U-100 100 unit/mL 8 unit SUBCUT DAILY@0730 02/17/21 05/08/21 History subcutaneous solution (Novolog U-100 Insulin aspart) insulin glargine 100 unit/mL 9 unit SUBCUT BID 02/17/21 05/08/21 History subcutaneous solution (Lantus U-100 Insulin) levothyroxine 175 mcg tablet 175 mcg PO DAILY 02/17/21 05/08/21 History meclizine 12.5 mg tablet 12.5 mg PO BEDTIME PRN 02/17/21 05/08/21 History metoprolol succinate 25 mg 12.5 mg PO DAILY 02/17/21 05/08/21 History tablet,extended release 24 hr (Toprol XL) valsartan 80 mg tablet 80 mg PO DAILY 03/14/21 05/08/21 History ibrutinib 280 mg tablet (Imbruvica) 280 mg PO DAILY 05/08/21 05/08/21 History Allergies Allergy/AdvReac Type Severity Reaction Status Date / Time indomethacin [INDOMETHACIN] Allergy Unknown BLOODY Verified 05/08/21 10:14 STOOLS- TOLD NEVER TO TAKE Exam Vital signs: Vital Signs Temp 97.1 F 04/05/21 10:23 Pulse 68 04/05/21 10:23 Resp 14 04/05/21 10:23 BP 131/63 04/05/21 10:23 Pulse Ox 97 04/05/21 10:23 Weight 105.2 kg Body Mass Index 34.2 - Constitutional Present: mild distress - Routine HEENT Exam Head: Present: normal inspection - Routine Neck Exam Present: full ROM, normal inspection. Absent: lymphadenopathy - Routine Respiratory Exam Present: CTAB - Routine Cardiovascular Exam Cardiovascular: Present: RRR, S1, S2 - Routine Abdominal Exam Present: distended, soft. Absent: mass - Routine Skin Exam Present: intact. Absent: cyanosis, erythema Data - Labs CBC & Chem 7: 05/08/21 10:31 05/08/21 10:31 Labs: 06/20/20 08:25 Complete Blood Count Man Dif Routine Lactate Dehydrogenase Routine 06/20/20 08:25 Comprehensive Met. Panel Routine 06/20/20 14:51 Add Laboratory Test Stat 08/29/20 08:07 Lactate Dehydrogenase Routine 08/29/20 08:55 Comprehensive Met. Panel Routine Laboratory Last Values WBC 54.5 X10*3/uL (4.8-10.8) H* 08/29/20 08:55 RBC 3.10 X10*6/uL (4.60-5.80) L 08/29/20 08:55 Hgb 10.3 g/dl (14.0-18.0) L 08/29/20 08:55 Hct 31.4 % (42-52) L 08/29/20 08:55 MCV 101.3 fL (80-98) H 08/29/20 08:55 MCH 33.2 pg (27.0-33.0) H 08/29/20 08:55 MCHC 32.8 g/dl (31.0-36.0) 08/29/20 08:55 RDW 14.0 % (11.0-16.0) 08/29/20 08:55 Plt Count 86 X10*3/uL (160-400) L 08/29/20 08:55 MPV 10.7 fL (9.4-12.4) 08/29/20 08:55 Immature Gran % (Auto) Cancelled 08/29/20 08:55 Neut % (Auto) Cancelled 08/29/20 08:55 Lymph % (Auto) Cancelled 08/29/20 08:55 [place] % (Auto) Cancelled 08/29/20 08:55 Eos % (Auto) Cancelled 08/29/20 08:55 Baso % (Auto) Cancelled 08/29/20 08:55 Lymph # (Auto) Cancelled 08/29/20 08:55 [place] # (Auto) Cancelled 08/29/20 08:55 Eos # (Auto) Cancelled 08/29/20 08:55 Baso # (Auto) Cancelled 08/29/20 08:55 Abs Immat Gran (auto) Cancelled 08/29/20 08:55 Absolute Neuts (auto) Cancelled 08/29/20 08:55 Absolute Nucleated RBC 0.000 X10*3/uL (0.0-0.012) 08/29/20 08:55 Nucleated RBC % (auto) 0.0 /100WBC (0.0-0.2) 08/29/20 08:55 Neutrophils % (Manual) 6 % (45-73) L 06/20/20 08:25 Band Neutrophils % 0 % (3-5) L 06/20/20 08:25 Lymphocytes % (Manual) 93 % (20-40) H 06/20/20 08:25 Monocytes % (Manual) 1 % (2-11) L 06/20/20 08:25 Abs Neuts (Manual) 2.5 X10*3/uL (2.2-7.9) 06/20/20 08:25 Lymphocytes # (Manual) 38.2 X10*3/uL (0.6-4.8) H 06/20/20 08:25 Monocytes # (Manual) 0.4 X10*3/uL (0.0-1.2) 06/20/20 08:25 Smudge Cells PRESENT 06/20/20 08:25 Platelet Estimate DECREASED (NORMAL) 06/20/20 08:25 Plt Morphology Comment NORMAL 06/20/20 08:25 RBC Morphology NOTED 06/20/20 08:25 Macrocytosis 1+ 06/20/20 08:25 Sodium 141 mmol/L (135-145) 08/29/20 08:55 Potassium 4.5 mmol/l (3.3-5.1) 08/29/20 08:55 Chloride 110 mmol/L (96-108) H 08/29/20 08:55 Carbon Dioxide 24 mmol/L (22-29) 08/29/20 08:55 Anion Gap 12 (12-20) 08/29/20 08:55 BUN 29 mg/dL (9-16) H 08/29/20 08:55 Creatinine 1.39 mg/dL (0.5-1.4) 08/29/20 08:55 Estim Creat Clear Calc 51.8 08/29/20 08:55 Estimated GFR 49 08/29/20 08:55 Random Glucose 142 mg/dL (60-115) H 08/29/20 08:55 Calcium 8.4 mg/dL (8.4-10.2) 08/29/20 08:55 Total Bilirubin 0.5 mg/dL (0.0-1.0) 08/29/20 08:55 AST 27 U/L (5-37) 08/29/20 08:55 ALT 25 U/L (0-40) 08/29/20 08:55 Alkaline Phosphatase 93 U/L (39-117) 08/29/20 08:55 Lactate Dehydrogenase 238 U/L (118-273) 08/29/20 08:07 Total Protein 5.8 g/dL (6.5-8.0) L 08/29/20 08:55 Albumin 3.9 g/dL (3.5-5.0) 08/29/20 08:55 Assessment and Plan Patient Active problem list reviewed?: Yes (1) CLL (chronic lymphocytic leukemia) Status: Chronic Assessment and plan: . This is an 80-year-old male with chronic lymphocytic leukemia, CLL, clinical stage 0. He has lymphocytosis, no significant anemia or thrombocytopenia. Bone marrow biopsy performed in June 2016 confirms the diagnosis. CD 38 negative which is associated with good prognosis. FISH for CLL showed no TP53 mutation/deletion 17 P. 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 He continues to be asymptomatic, no B symptoms. Patient started ibrutinib 420 mg daily from 02/10/21. He did develop side effects of hemorrhage, hematuria and urinary retention. He resumed ibrutinib 140 mg once daily from 03/08/2021. He is on 280 mg once daily from . He is tolerating it well and his blood counts have improved. He was advised to continue with the same dose for now. 2. Liver cirrhosis. Hepatitis serologies negative, AFP not elevated, liver enzymes normal. Probably related to LEO. Last imaging, CT abdomen and pelvis without contrast in February 2020 revealed diffuse lymphadenopathy slightly increased since 2018, stable splenomegaly and cirrhotic appearing liver, stable compared to prior scan. 3. Renal insufficiency. Kidney functions are about the same. Follow-up in 8 weeks. - Time Spent With Patient Time Spent with Patient (in minutes): 20
[2021-05-08 10:12] VITALS: BP 153/66; PULSE 78; RESP 14; TEMP 36.4; O2SAT 98; BMI 34.4
[2021-05-08 10:39] LABS: Basophils Percent Auto 0.2 % (0-2); Eosinophils Percent Auto 0.1 % (0-4); Hematocrit 31.3 % (42-52); Hemoglobin 10.2 g/dl (14.0-18.0); Imm Gran Abs Auto 0.05 X10*3/uL (0.00-0.03); Imm Gran Pct Auto 0.4 % (0.0-0.4); MANUAL DIFF FLAG SCAN; Mean Corpuscular HGB Conc 32.6 g/dl (31.0-36.0); Mean Corpuscular Hemoglobin 32.6 pg (27.0-33.0); Mean Platelet Volume 11.6 fL (9.4-12.4); Monocytes Absolute Auto 0.9 X10*3/uL (0.1-1.2); Monocytes Percent Auto 6.8 % (2-11); Neutrophils Absolute Auto 2.3 X10*3/uL (2.0-8.3); Neutrophils Percent Auto 16.5 % (45-73); Red Blood Count 3.13 X10*6/uL (4.60-5.80); Red Cell Distribution Width 13.8 % (11.0-16.0); SCAN SMEAR FLAG 1; White Blood Count 13.6 X10*3/uL (4.8-10.8)
[2021-05-08 10:57] LABS: Lymphocytes Absolute Auto 10.3 X10*3/uL (1.2-4.9); Platelet Count 55 X10*3/uL (160-400)
[2021-05-08 10:58] LABS: Alanine Aminotransferase 39 U/L (0-40); Albumin Level 3.5 g/dL (3.5-5.0); Alkaline Phosphatase 114 U/L (39-117); Anion Gap 11 (12-20); Aspartate Amino Transferase 57 U/L (5-37); Bilirubin Total 0.8 mg/dL (0.0-1.0); Blood Urea Nitrogen 30 mg/dL (9-16); Calcium 8.3 mg/dL (8.4-10.2); Carbon Dioxide 24 mmol/L (22-29); Chloride 105 mmol/L (96-108); Creatinine Clr Calc Pharmacy 35.4; Estimated Glomerular Filt Rate 33; Glucose Random 225 mg/dL (60-115); Lactate Dehydrogenase 275 U/L (118-273); Potassium 4.4 mmol/L (3.3-5.1); Sodium 136 mmol/L (135-145); Total Protein 5.4 g/dL (6.5-8.0)
[2021-05-08 11:51] LABS: SLIDE REVIEW VERIFIED
--- NOTE | 2021-05-08 13:26 | MHC.HEMONCMA ---
Patient came in for a follow up, states that he is doing well. Clinical summary was reviewed and updated. Patient had labs and will return in 2 months for a follow up.
--- NOTE | 2021-11-10 15:01 | MHC.HEMONCSW ---
PATIENT ON 06/09/21.
== END 2021-06-09 | disposition home or self-care (01) ==
LOC: HO.ONC 10:20
PROVIDERS: Internal Medicine Medical Oncology; PCP Internal Medicine; Visit Provider Internal Medicine
DX: C91.10 Chronic lymphocytic leukemia of B-cell type not having achieved remission (principal); K74.60 Unspecified cirrhosis of liver; N18.9 Chronic kidney disease, unspecified; Z79.899 Other long term (current) drug therapy
CPT/HCPCS: 36415; 80053; 82436; 83615; 83935; 84300; 85007; 85025; 85027; 96360; 96361; 99211; 99213; 99214

== ENCOUNTER 2021-06-07 14:17 | Outpatient (REF) | payer MEDICARE, SELFPAY ==
--- NOTE | ~2021-06-07 | US_ITS ---
EXAMINATION: US SCROTUM CLINICAL INFORMATION: Right testicular swelling. Rule out hydrocele. COMPARISON: Previous scrotal ultrasounds most recent November 2007 TECHNIQUE: A sonogram of the scrotum was performed assessing kumar-scale appearance and color Doppler flow. Spectral Doppler analysis of the arterial and venous flow were performed in the testes bilaterally. FINDINGS: RIGHT: Right testicle measures 4.2 x 2.1 x 3.4 cm, volume 15.7 mL. No focal testicular parenchymal lesions are visualized. Spectral Doppler analysis of the arterial and venous flow is normal in the right testis. The right epididymis is enlarged. Right epididymal Doppler flow is increased, particularly in the tail. There is a 0.4 x 0.7 x 0.5 cm right epididymal head cyst. Exophytic to the epididymis is a second complex cyst measuring 1.1 x 1.2 x 1 cm. This has a small mural nodule measuring 2 x 4 mm. This is increased in size compared to 2018 exam and the mural nodule is new. There is a moderate size right hydrocele. There are right scrotal calcifications or scrotal pearls. This is suggestive of scrotal pearls usually related to old trauma or infection. No right varicocele is seen. LEFT: Left testicle measures 3.3 x 1.3 x 2.2 cm, volume 4.9 mL. Left testicle echotexture appears diffusely heterogeneous. Spectral Doppler analysis of the arterial and venous flow is decreased in the left testis. The left epididymis is normal in size. There is a 7 mm left epididymal head cyst. Left epididymal vascularity is normal. There is no left hydrocele or varicocele. The previously identified complex left hydrocele 2018 exam is no longer seen. US/US scrotum IMPRESSION: Right: Moderate right hydrocele. Right scrotal calcifications or scrotal peripheral suggestive of old trauma or infection. Enlarged heterogeneous hypervascular right epididymis questionable for right epididymitis. Several right epididymal head cysts. Left: Small heterogeneous appearing left testicle with decreased flow compared to the right side. The left testicle is decreased in size compared to prior exam November 2007. This may be related to old trauma or infection. No left hydrocele.
== END 2021-06-07 14:18 | disposition home or self-care (01) ==
LOC: HO.HMGCX 14:17
PROVIDERS: PCP Internal Medicine; Visit Provider Internal Medicine
DX: Z13.89 Encounter for screening for other disorder (principal)
CPT/HCPCS: 76870

== ENCOUNTER 2021-06-08 09:46 | Inpatient (IN) | payer MEDICARE, SELFPAY ==
[2021-06-08] VITALS (20 sets, daily range): BP systolic 64–131; BP diastolic 36–62; PULSE 95–118; RESP 16–46; TEMP 35.6–38.6; O2SAT 94–99; BMI 34.0
--- NOTE | 2021-06-08 | ECG_ITS ---
Test Reason : RYTHYM CHANGE Blood Pressure : / mmHG Vent. Rate : 106 BPM Atrial Rate : 106 BPM P-R Int : 216 ms QRS Dur : 130 ms QT Int : 342 ms P-R-T Axes : 000 -44 116 degrees QTc Int : 454 ms Sinus tachycardia with 1st degree A-V block Left axis deviation Non-specific intra-ventricular conduction block T wave abnormality, consider lateral ischemia Abnormal ECG No significant changes seen Referred By: Trudi Rodriguez Electronically Signed By:ANDERSON PASCUAL MD
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
--- NOTE | ~2021-06-08 | CT_ITS ---
EXAMINATION: CT HEAD WITHOUT CONTRAST CLINICAL INFORMATION: Trauma COMPARISON: None TECHNIQUE: Contiguous axial imaging was performed from the skull base to vertex without intravenous administration of contrast. Additional 2-D coronal and sagittal reformatted images are generated on the CT workstation and uploaded to PACS. This CT examination was performed using dose optimization techniques as appropriate, variously including the following: *Automated exposure control *Adjustment of mA and/or kV according to patient size (this includes techniques or standardized protocols for targeted exams where dose is matched to indication/reason for exam; i.e. extremities or head) *Use of iterative reconstruction technique DLP: 767 mGy-cm FINDINGS: There is no intracranial hemorrhage, hematoma, or extra-axial fluid collection. The ventricles are normal in size. There is no hydrocephalus, edema, or mass effect. There are mild atrophic changes with prominence of the cortical sulci and fissures and cisterns. The kumar-white matter differentiation appears symmetric. There are small Virchow Paul perivascular spaces at the bilateral inferior basal ganglia. There is no visible acute territorial infarct or mass lesion. The calvarium appears intact. There is no pneumocephalus or orbital emphysema. The visualized sinuses and middle ears and mastoid air cells show no significant mucosal thickening. There are no air-fluid levels. CT/CT head/brain wo con IMPRESSION: No acute intracranial abnormality.
--- NOTE | ~2021-06-08 | XR_ITS ---
EXAMINATION: XR CHEST CLINICAL INFORMATION: Line placement COMPARISON: [employer] film from CT chest dated 04/05/2008 TECHNIQUE: Frontal view of the chest was obtained. FINDINGS: Catheter entering from the lower right neck. Terminates overlying the superior vena cava given the patient rotation to the left. There is left basilar opacity which may be consistent with atelectasis or infiltrate or edema. There is felt to be vascular congestion. No pneumothorax. NG tube appears to be coursing across the diaphragm. The ET tube is 3.5 cm above the abrahan. XR/XR chest 1V IMPRESSION: Tubes and catheters as described above. No pneumothorax Left basilar opacity may be fluid and/or adjacent atelectasis infiltrate or edema. There is vascular congestion here.
--- NOTE | 2021-06-08 11:32 | ED_ITS ---
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 Correct) (7.35-7.45) ABG pCO2 at Pt Temp (32-45) mmHg ABG pCO2 (Temp Corrct (32-45) mmHg ABG pO2 at Pt Temp (83-108) mmHg ABG pO2 (Temp Correct (83-108) ABG HCO3 (22-26) mmol/L ABG Base Excess (Actual) mmol/L Sodium (135-145) mmol/L Potassium (3.3-5.1) mmol/L Chloride (96-108) mmol/L Carbon Dioxide (22-29) mmol/L Anion Gap (12-20) BUN (9-16) mg/dL Creatinine (0.5-1.4) mg/dL Estim Creat Clear Calc Estimated GFR Random Glucose (60-115) mg/dL Lactic Acid (0.5-2.0) mmol/L Calcium (8.4-10.2) mg/dL Total Bilirubin (0.0-1.0) mg/dL AST (5-37) U/L ALT (0-40) U/L Alkaline Phosphatase (39-117) U/L Troponin I High Sens 23.3 (<3.5-35.0) ng/L B-Natriuretic Peptide 139 H (<100) pg/mL Total Protein (6.5-8.0) g/dL Albumin (3.5-5.0) g/dL TSH (0.32-4.0) uIU/mL Urine Color YELLOW Urine Appearance HAZY Urine pH 5.5 (5.0-8.0) Ur Specific [place] 1.015 (1.005-1.025) Urine Protein 1+ H (NEG-TRACE) MG/DL Urine Glucose (UA) >=1000 H (NEG) MG/DL Urine Ketones NEG (NEG) MG/DL Urine Blood TRACE (NEG) Urine Nitrite NEG (NEG) Ur Leukocyte Esterase TRACE H (NEG) Urine RBC 1-4 (0) /HPF Urine WBC 15-29 H (0-4) /HPF Ur Squamous Epith Cells 1+ /LPF Urine Bacteria NONE /LPF Urine Mucus TRACE /LPF Acetone, Qual (Negative) COVID-19 (YOVANI) Negative (Negative) COVID-19 Clin Com See Note 06/08/21 06/08/21 Range/Units 15:25 15:35 WBC (4.8-10.8) X10*3/uL RBC (4.60-5.80) X10*6/uL Hgb (14.0-18.0) g/dl Hct (42-52) % MCV (80-98) fL MCH (27.0-33.0) pg MCHC (31.0-36.0) g/dl RDW (11.0-16.0) % Plt Count (160-400) X10*3/uL MPV (9.4-12.4) fL Immature Gran % (Auto) Neut % (Auto) Lymph % (Auto) [place] % (Auto) Eos % (Auto) Baso % (Auto) Lymph # (Auto) [place] # (Auto) Eos # (Auto) Baso # (Auto) Abs Immat Gran (auto) Absolute Neuts (auto) Absolute Nucleated RBC (0.0-0.012) X10*3/uL Nucleated RBC % (auto) (0.0-0.2) /100WBC Neutrophils % (Manual) (45-73) % Band Neutrophils % (3-5) % Lymphocytes % (Manual) (20-40) % Monocytes % (Manual) (2-11) % Metamyelocytes % % Abs Neuts (Manual) (2.2-7.9) X10*3/uL Lymphocytes # (Manual) (0.6-4.8) X10*3/uL Monocytes # (Manual) (0.0-1.2) X10*3/uL Metamyelocytes # X10*3/uL Smudge Cells Platelet Estimate (NORMAL) Plt Morphology Comment RBC Morphology Acanthocytes (Spur) /OIF PT (9.9-13.0) SEC INR (0.9-1.1) APTT (24.1-38.0) SEC O2 Saturation 98.0 % ABG pH at Pt Temp 7.23 L (7.35-7.45) ABG pH (Temp Correct) 7.22 L (7.35-7.45) ABG pCO2 at Pt Temp 20 L* (32-45) mmHg ABG pCO2 (Temp Corrct 21 L (32-45) mmHg ABG pO2 at Pt Temp 142 H (83-108) mmHg ABG pO2 (Temp Correct 149 H (83-108) ABG HCO3 8 L (22-26) mmol/L ABG Base Excess (Actual) -16.4 mmol/L Sodium (135-145) mmol/L Potassium (3.3-5.1) mmol/L Chloride (96-108) mmol/L Carbon Dioxide (22-29) mmol/L Anion Gap (12-20) BUN (9-16) mg/dL Creatinine (0.5-1.4) mg/dL Estim Creat Clear Calc Estimated GFR Random Glucose (60-115) mg/dL Lactic Acid 6.2 H* (0.5-2.0) mmol/L Calcium (8.4-10.2) mg/dL Total Bilirubin (0.0-1.0) mg/dL AST (5-37) U/L ALT (0-40) U/L Alkaline Phosphatase (39-117) U/L Troponin I High Sens (<3.5-35.0) ng/L B-Natriuretic Peptide (<100) pg/mL Total Protein (6.5-8.0) g/dL Albumin (3.5-5.0) g/dL TSH (0.32-4.0) uIU/mL Urine Color Urine Appearance Urine pH (5.0-8.0) Ur Specific [place] (1.005-1.025) Urine Protein (NEG-TRACE) MG/DL Urine Glucose (UA) (NEG) MG/DL Urine Ketones (NEG) MG/DL Urine Blood (NEG) Urine Nitrite (NEG) Ur Leukocyte Esterase (NEG) Urine RBC (0) /HPF Urine WBC (0-4) /HPF Ur Squamous Epith Cells /LPF Urine Bacteria /LPF Urine Mucus /LPF Acetone, Qual (Negative) COVID-19 ([facility]OVANI) (Negative) COVID-19 Clin Com <Lee Ann Sierra MD - Last Filed: 06/08/21 17:04> ECG Data Interpretation: Atrial fibrillation with RVR. Ventricular rate 118. QRS 118. QTC 484. Negative STEMI. <BREANNA Goodwin - Last Filed: 06/08/21 20:25> Critical Care Time Critical Care Time Critical Care Time: Yes <BREANNA Goodwin - Last Filed: 06/08/21 20:25> Total Critical Care Time: 60 <BREANNA Goodwin - Last Filed: 06/08/21 20:25> Attestation: Atrial fibrillation with RVR. Tachypneic. Tachycardic. Patient given digoxin. Patient sent for head CT, chest CT, abdominal CT, cervical CT scan. Patient due to atrial fibrillation not being stable and responding to medication patient had 3 episodes of synchronized conversion that was not successful. Patient intubated due to severe altered mental status and low bicarb, hypocarbic and inability to protect airway. Patient was intubated with size 7 ET tube after fell of 10 with size 8 ET tube. Central line placed by Dr. Sierra. Antibiotics started due to positive UA results which shows possible UTI. Patient then became febrile 100.2. <BREANNA Goodwin - Last Filed: 06/08/21 20:25> Discharge Plan Discharge Clinical Impression: Atrial fibrillation, Sepsis, Acute UTI <BREANNA Goodwin Last Filed: 06/08/21 20:25> Patient Disposition: Admitted As Inpatient <BREANNA Goodwin - Last Filed: 06/08/21 20:25> Interventions: Admission Worksheet (ED) Last Done: 06/08/21 17:56 <BREANNA Goodwin - Last Filed: 06/08/21 20:25> [facility] Past Medical History Medical History: Medical History CRISTOPHER (acute kidney injury) Chronic renal insufficiency CLL (chronic lymphocytic leukemia) Diabetes mellitus First degree AV block GERD (gastroesophageal reflux disease) Gout Hematuria Hyperlipidemia Hypertension Hypothyroid Left anterior fascicular block Pulmonary nodule Skin cancer Thyroid cancer <BREANNA Goodwin Last Filed: 06/08/21 20:25> Surgical History: Surgical History H/O thyroidectomy History of knee replacement procedure of left knee (~1994) History of rickets <BREANNA Goodwin Last Filed: 06/08/21 20:25> Family History Family History: Family History Father No problems noted. Mother Breast cancer DVT (deep venous thrombosis) Brother Intestinal cancer Sister Breast cancer Sister Breast cancer <BREANNA Goodwin - Last Filed: 06/08/21 20:25> Social History Social History: Social History Household Members: Spouse Housing: Unknown / Unable to assess Unable to assess alcohol history related to: Unknown Alcohol intake: unknown Patient Tobacco Use Status: Never used Tobacco Use of substances other than those prescribed or required for medical reasons: Unable to respond Spiritual Healthcare Practices: unable to assess Anabaptist Healthcare Practices: unable to assess Cultural Healthcare Practices: unable to assess Advance Directives: Yes Advance Directives on File: Yes Advance Directives Date on File: 02/17/21 Recently lost weight without trying: Unsure service: Yes Current occupational status: retired <BREANNA Goodwin - Last Filed: 06/08/21 20:25>
[2021-06-08 12:03] LABS: Hemoglobin 11.4 g/dl (14.0-18.0); Mean Corpuscular HGB Conc 32.6 g/dl (31.0-36.0); Mean Corpuscular Hemoglobin 31.5 pg (27.0-33.0); Mean Corpuscular Volume 96.7 fL (80-98); Mean Platelet Volume 12.5 fL (9.4-12.4); Red Blood Count 3.62 X10*6/uL (4.60-5.80); Red Cell Distribution Width 14.2 % (11.0-16.0)
[2021-06-08 12:05] LABS: Platelet Count 72 X10*3/uL (160-400); WBC ABN SCTR FOR CBC 1; White Blood Count 17.9 X10*3/uL (4.8-10.8)
[2021-06-08 12:07] LABS: INTERNATIONAL NORM RATIO 1.6 (0.9-1.1); Prothrombin Time 17.8 SEC (9.9-13.0)
[2021-06-08 12:10] LABS: Partial Thromboplastin Time 34.5 SEC (24.1-38.0)
[2021-06-08] MEDS: Morphine Sulfate 2 MG/ML CARTRIDGE IVPUSH (12:24)
[2021-06-08 12:25] LABS: Alanine Aminotransferase 22 U/L (0-40); Albumin Level 3.2 g/dL (3.5-5.0); Alkaline Phosphatase 84 U/L (39-117); Anion Gap 26 (12-20); Aspartate Amino Transferase 33 U/L (5-37); Bilirubin Total 1.9 mg/dL (0.0-1.0); Blood Urea Nitrogen 57 mg/dL (9-16); Calcium 8.4 mg/dL (8.4-10.2); Carbon Dioxide 11 mmol/L (22-29); Chloride 101 mmol/L (96-108); Creatinine Clr Calc Pharmacy 17.8; Estimated Glomerular Filt Rate 15; Glucose Random 175 mg/dL (60-115); Potassium 4.2 mmol/L (3.3-5.1); Sodium 134 mmol/L (135-145); Total Protein 5.4 g/dL (6.5-8.0)
--- NOTE | 2021-06-08 12:31 | ECG_ITS ---
Test Reason : ABDOMINAL PAIN Blood Pressure : / mmHG Vent. Rate : 118 BPM Atrial Rate : 000 BPM P-R Int : 000 ms QRS Dur : 118 ms QT Int : 346 ms P-R-T Axes : 000 -40 110 degrees QTc Int : 484 ms Atrial fibrillation with rapid ventricular response Left axis deviation Intra-ventricular conduction delay Left ventricular hypertrophy with QRS widening and repolarization abnormality ( R in aVL , Damaso product ) Abnormal ECG When compared with ECG of 29-FEB-2020 08:57, Atrial fibrillation has replaced Sinus rhythm Vent. rate has increased BY 56 BPM T wave inversion now evident in Lateral leads Referred By: Good Leiva Electronically Signed By:ANDERSON PASCUAL MD
--- NOTE | 2021-06-08 12:34 | PC.NURSE ---
provider aware of patients status tachypneic at 50 bpm, decreased bp 101/43, pt placed on 2L nc patient appears to have fluid in abd area, concern for ascetics.
[2021-06-08 12:38] LABS: Band Neutrophils Percent 11 % (3-5); Lymphocytes Percent Manual 84 % (20-40); Metamyelocytes Absolute 0.2 X10*3/uL; Metamyelocytes Percent 1 %; Monocytes Absolute Manual 0.4 X10*3/uL (0.0-1.2); Monocytes Percent Manual 2 % (2-11); Neutrophils Absolute Manual 2.3 X10*3/uL (2.2-7.9); Neutrophils Percent Manual 2 % (45-73)
[2021-06-08 12:42] LABS: Acanthocytes 3+ (>5) /OIF; Platelet Estimate DECREASED (NORMAL); RBC Morphology NOTED; Smudge Cells PRESENT
[2021-06-08 12:43] LABS: Platelet Morphology Comment NORMAL
[2021-06-08 13:03] LABS: B Type Natriuretic Peptide 139 pg/mL (<100); Troponin-I High Sensitivity 23.3 ng/L (<3.5-35.0)
[2021-06-08] MEDS: fentaNYL citrate/PF 100 MCG/2 ML VIAL 50 MCG IVPUSH (13:13)
[2021-06-08] MEDS: Digoxin 0.5 MG/2 ML AMPUL 0.125 MG IVPUSH (13:49)
--- NOTE | 2021-06-08 14:39 | PC.NURSE ---
PT CURRENTLY GETTING CTA, ICU PROVIDER HAS BEEN CONSULTED DUE TO QUESTION OF FLUID IN ABD AND AROUND HEART AND NEW ONSET OF AFIB.
[2021-06-08] MEDS: 0.9 % Sodium Chloride 1,000 ML 999 ML IV ×2 (14:58→16:29)
[2021-06-08 15:00] LABS: Appearance Urine HAZY; Color Urine YELLOW; Glucose Urine UA >=1000 MG/DL (NEG); Leukocyte Esterase Urine TRACE (NEG); Nitrite Urine NEG (NEG); PH 5.5 (5.0-8.0); Specific Gravity - Urine 1.015 (1.005-1.025); UACC Culture Trigger YES; Urine Blood TRACE (NEG); Urine Ketones NEG (NEG); Urine Protein 1+ MG/DL (NEG-TRACE)
[2021-06-08] MEDS: Midazolam HCl/PF 2 MG/2 ML VIAL 6 MG IVPUSH (15:03)
[2021-06-08 15:08] LABS: Mucus Urine TRACE /LPF; Squamous Epithelial Cell Urine 1+ /LPF
[2021-06-08 15:08] LABS: Thyroid Stimulating Hormone 5.06 uIU/mL (0.32-4.0)
[2021-06-08 15:24] LABS: COVID-19 Test Negative (Negative)
--- NOTE | 2021-06-08 15:27 | PC.NURSE ---
PT HAS REMAINED IN AFIB, RR IN 50'S CT SCAN SHOWED LARGE BLADDER, 16 F TEMP PALMER PLACED. DRAINED ABOUT 650 CC OF DARK URINE. DECISION WAS MADE TO CARDIVERT 120J 200J 200J WITH NO CONVERSION PT REMAINS IN A FIB PT SEDATIED WITH VERSED PRIOR TO CARDIOVERSION. ICU PROVIDER ER PROVIDER RN AND RT AT [facility] PT TOLERATED WELL.
[2021-06-08 15:32] LABS: ABG Base Excess -16.4 mmol/L; ABG HCO3 8 mmol/L (22-26); ABG pCO2 20 mmHg (32-45); ABG pCO2 TC 21 mmHg (32-45); ABG pH 7.23 (7.35-7.45); ABG pH TC 7.22 (7.35-7.45); ABG pO2 142 mmHg (83-108); ABG pO2 TC 149 (83-108)
[2021-06-08 15:50] LABS: Acetone, serum QL Negative (Negative)
[2021-06-08] MEDS: Midazolam HCl/PF 2 MG/2 ML VIAL 4 MG IVPUSH (15:50)
[2021-06-08] MEDS: Rocuronium Bromide 50 MG/5 ML VIAL IVPUSH (15:55)
[2021-06-08] MEDS: Phenylephrine HCL 20 MG in 0.9 % Sodium Chloride 250 ML 39.44 MG IVCONT ×3 (16:14→19:47)
--- NOTE | 2021-06-08 16:31 | PC.NURSE ---
1530 PT BEGAN TO DECOMPENSATE DECREASED BP POOR PROFUSION, INCREASED WORK OF BREATHING. DECISION MADE BY ER PRVIDER AND ICU PROVIDER TO INTUBATE. PT INTUBATED WITH 7.5 EET 23 AT LIP 24 AT TEETH CURRENT SETTINGS 28/5 50% VOLUME CONTROL 550. PT IS RESTING MORE COMFORTLY POST INTUBATION OGT PLACED
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
[2021-06-08] MEDS: Midazolam HCl/NS 50 MG/50 ML PLAST..BAG IVCONT ×2 (17:17→23:13)
[2021-06-08 17:33] LABS: ABG Refer to POC result
[2021-06-08] MEDS: cefTRIAXone sodium 1 GM in 0.9 % Sodium Chloride 50 ML IV (17:36)
[2021-06-08] MEDS: levoFLOXacin/D5W 750 MG/150 ML PIGGYBACK 100 MG IV (17:37)
[2021-06-08 17:56] LABS: Glucose, Whole Blood 100 mg/dL (60-115)
[2021-06-08 18:25] LABS: Lactic Acid 6.2 mmol/L (0.5-2.0)
[2021-06-08] MEDS: Dextrose 5 % and Lactated Ring 1,000 ML 100 ML IVCONT (18:25)
[2021-06-08 18:26] LABS: Glucose, Whole Blood 91 mg/dL (60-115)
[2021-06-08] MEDS: Heparin Sodium,Porcine 5,000 UNIT/ML VIAL 5000 UNIT SUBCUT (18:26)
[2021-06-08] MEDS: Chlorhexidine Gluc Oral Rinse 15 ML MOUTHWASH BUCCAL (18:28)
[2021-06-08 19:32] LABS: VBG HCO3 10 mmol/L (22-26); VBG pCO2 33 mmHg; VBG pH 7.09 (7.32-7.43); VBG pO2 43 mmHg
[2021-06-08 19:36] LABS: VBG HCO3 10 mmol/L (22-26); VBG pCO2 31 mmHg; VBG pO2 45 mmHg
[2021-06-08 19:40] LABS: Venous Blood Gas Refer to POC result
[2021-06-08 19:48] LABS: Reflex Lactate? Lactic Acid Added
[2021-06-08 20:03] LABS: Glucose, Whole Blood 104 mg/dL (60-115)
[2021-06-08] MEDS: Insulin Regular/NS 100 UNIT/100 ML PLAST..BAG IVCONT (20:16)
[2021-06-08 21:01] LABS: Glucose, Whole Blood 107 mg/dL (60-115)
[2021-06-08] MEDS: Phenylephrine HCL 20 MG in 0.9 % Sodium Chloride 250 ML 236.61 MG IVCONT ×2 (21:10→22:22)
[2021-06-08 21:33] LABS: Reflex Lactate? Lactic Acid Added
[2021-06-08 22:02] LABS: ~Lactic Acid-LAB USE ONLY 8.2 mmol/L (0.5-2.0)
[2021-06-08 22:17] LABS: Glucose, Whole Blood 114 mg/dL (60-115)
[2021-06-08 22:58] LABS: Glucose, Whole Blood 105 mg/dL (60-115)
[2021-06-08 23:19] LABS: ABG Base Excess -18.1 mmol/L; ABG HCO3 9 mmol/L (22-26); ABG pCO2 25 mmHg (32-45); ABG pH 7.14 (7.35-7.45); ABG pO2 58 mmHg (83-108)
[2021-06-08] MEDS: Phenylephrine HCL 20 MG in 0.9 % Sodium Chloride 250 ML 315.48 MG IVCONT (23:20)
[2021-06-08 23:25] LABS: VBG Base Excess -18.2 mmol/L; VBG HCO3 9 mmol/L (22-26); VBG pCO2 24 mmHg; VBG pH 7.15 (7.32-7.43); VBG pO2 61 mmHg
[2021-06-08 23:26] LABS: Venous Blood Gas Refer to POC result
[2021-06-08 23:42] LABS: Reflex Lactate? 2 Y
[2021-06-08 23:56] LABS: Anion Gap 23 (12-20); Blood Urea Nitrogen 59 mg/dL (9-16); Calcium 7.4 mg/dL (8.4-10.2); Carbon Dioxide 9 mmol/L (22-29); Chloride 108 mmol/L (96-108); Estimated Glomerular Filt Rate 15; Glucose Random 133 mg/dL (60-115); Sodium 136 mmol/L (135-145)
[2021-06-09] VITALS (24 sets, daily range): BP systolic 63–109; BP diastolic 34–57; PULSE 44–140; RESP 22–30; TEMP 38.2–39.3; O2SAT 88–97; BMI 40.9
[2021-06-09] LABS: Glucose, Whole Blood 105 mg/dL (60-115)
[2021-06-09 00:18] LABS: ~Lactic Acid-LAB USE ONLY 8.2 mmol/L (0.5-2.0)
[2021-06-09] MEDS: Phenylephrine HCL 20 MG in 0.9 % Sodium Chloride 250 ML 315.48 MG IVCONT ×2 (00:18→01:22)
[2021-06-09 01:06] LABS: Glucose, Whole Blood 106 mg/dL (60-115)
[2021-06-09] MEDS: dilTIAZem HCL 50 MG/10 ML VIAL IVPUSH ×3 (01:39→02:04)
--- NOTE | 2021-06-09 01:59 | PM.CCN ---
Critical Care Event Note Summary Date of Service: 06/09/21 Code activated: No Narrative: This case had a high probability of a clinically significant, sudden, or life threatening deterioration of this patient's condition which required my full and direct attention, intervention and personal management. Critical Care Time (minutes): 90 Comment: Patient becoming increasingly acidotic, bicarb 9, lactic acid 8-10, pH bumped up a tad from 7.01 to 7.15 but not significant. Urine output dismal, 50cc over the last 7 hours. CVP consistently 9. Febrile with rising temp in 101F range. Patient has urine and blood cultures pending, ordered sputum culture, ?SBP. Pt had converted to sinus tach at 7pm last evening but flipped back to afib at 1:15am with rate into the 190's. Blood pressures also soft in the 94/55 map 68 range. Pt currently maxxed out on phenylephrine and Efrain-Synephrine. Pushed 5mg IV Cardizem x3 with reduction of HR 120-150's. Spoke with Dr Winter, reviewed situation, he advised 1 amp bicarb, cardizem drip at 5/hr, 0.25 digoxen, 1g meropenem and monitor.
[2021-06-09] MEDS: Sodium Bicarbonate 8.4% 50 MEQ/50 ML VIAL IVPUSH ×6 (02:03→08:30)
[2021-06-09 02:05] LABS: Glucose, Whole Blood 112 mg/dL (60-115)
[2021-06-09] MEDS: Phenylephrine HCL 20 MG in 0.9 % Sodium Chloride 250 ML 473.22 MG IVCONT ×9 (02:05→07:26)
[2021-06-09] MEDS: Acetaminophen 325 MG TABLET 650 MG PO (02:06)
[2021-06-09] MEDS: dilTIAZem HCL 125 MG in 0.9 % Sodium Chloride 100 ML IVCONT (02:10)
[2021-06-09] MEDS: Digoxin 0.5 MG/2 ML AMPUL 0.25 MG IVPUSH (02:16)
[2021-06-09] MEDS: Chlorhexidine Gluc Oral Rinse 15 ML MOUTHWASH BUCCAL (02:18)
[2021-06-09 03:13] LABS: Glucose, Whole Blood 98 mg/dL (60-115)
[2021-06-09 03:59] LABS: Glucose, Whole Blood 115 mg/dL (60-115)
[2021-06-09] MEDS: Dextrose 5 % and Lactated Ring 1,000 ML 100 ML IVCONT (04:08)
[2021-06-09 05:12] LABS: Glucose, Whole Blood 113 mg/dL (60-115)
[2021-06-09 05:17] LABS: VBG Base Excess -20.3 mmol/L; VBG HCO3 8 mmol/L (22-26); VBG pCO2 30 mmHg; VBG pH 7.05 (7.32-7.43); VBG pO2 46 mmHg
[2021-06-09 05:19] LABS: Venous Blood Gas Refer to POC result
[2021-06-09 05:20] LABS: Hematocrit 33.1 % (42-52); Hemoglobin 10.8 g/dl (14.0-18.0); Mean Corpuscular HGB Conc 32.6 g/dl (31.0-36.0); Mean Corpuscular Volume 98.2 fL (80-98); Mean Platelet Volume 12.4 fL (9.4-12.4); NRBC Pct Auto 0.1 /100WBC (0.0-0.2); Platelet Count 105 X10*3/uL (160-400); Red Blood Count 3.37 X10*6/uL (4.60-5.80); Red Cell Distribution Width 14.7 % (11.0-16.0)
[2021-06-09 05:22] LABS: WBC ABN SCTR FOR CBC 1
[2021-06-09 05:41] LABS: Alanine Aminotransferase 32 U/L (0-40); Albumin Level 2.4 g/dL (3.5-5.0); Alkaline Phosphatase 64 U/L (39-117); Anion Gap 21 (12-20); Aspartate Amino Transferase 112 U/L (5-37); Bilirubin Total 1.7 mg/dL (0.0-1.0); Blood Urea Nitrogen 60 mg/dL (9-16); Carbon Dioxide 10 mmol/L (22-29); Chloride 110 mmol/L (96-108); Creatinine Clr Calc Pharmacy 16.1; Estimated Glomerular Filt Rate 14; Glucose Random 150 mg/dL (60-115); Magnesium 1.6 mg/dL (1.6-2.6); Phosphorus 6.2 mg/dL (2.7-4.5); Potassium 4.4 mmol/L (3.3-5.1); Sodium 137 mmol/L (135-145); Total Protein 4.1 g/dL (6.5-8.0)
[2021-06-09 05:57] LABS: Band Neutrophils Percent 0 % (3-5); Lymphocytes Percent Manual 97 % (20-40); Monocytes Percent Manual 1 % (2-11); Neutrophils Percent Manual 2 % (45-73)
[2021-06-09 05:58] LABS: Acanthocytes 2+ (3-5) /OIF; Burr Cells 3+ (>5) /OIF; Ovalocytes 1+ (5-14) /OIF; Platelet Estimate SLIGHTLY DECREASED (NORMAL); Platelet Morphology Comment NORMAL
[2021-06-09 05:59] LABS: RBC Morphology NOTED
[2021-06-09 06:00] LABS: Glucose, Whole Blood 104 mg/dL (60-115)
[2021-06-09 06:00] LABS: Lymphocytes Absolute Manual 14.7 X10*3/uL (0.6-4.8); Monocytes Absolute Manual 0.2 X10*3/uL (0.0-1.2); Neutrophils Absolute Manual 0.3 X10*3/uL (2.2-7.9); Smudge Cells PRESENT; White Blood Count 15.2 X10*3/uL (4.8-10.8)
[2021-06-09] MEDS: Heparin Sodium,Porcine 5,000 UNIT/ML VIAL 5000 UNIT SUBCUT (06:00)
--- NOTE | 2021-06-09 06:25 | P.CDIC_ITS ---
CDI Concurrent Query Documentation Clarification: PHYSICIAN'S DOCUMENTATION REQUEST Date of Query: 06/09/21626 Patient Name: Nathan Govea Admit Date: 06/08/21 Dear Doctor, A review of the medical record indicates additional documentation may be needed. Please review below and update the documentation accordingly. Risk Factors/Clinical Indicators/Treatments Sepsis - Hypotensive 81/37 LA 8-10 HR 103 Temp 102 ED: placed on oxygen, fentanyl became tachypneic and tachycardic. Intubated for airway protection due to severe altered mental status, Vasopressors. CLL on oral Chemotherapy Dx: UTI Sepsis Systemic manifestations of infection, with 2 or more SIRS criteria which include: * Fever > 100.4?F or hypothermia < 96.8?F * Leukocytosis ? WBC > 12,000 or leukopenia, WBC < 4,000, or > 10% bands * Tachycardia- > 90 beats/minute * Tachypnea- RR > 20 breaths/minute or PaCO2 < 32mmHg Source: Merck Manual 2013 Documentation should include the known or suspected organism, and the underlying infection, such as UTI or pneumonia Severe Sepsis Sepsis with associated acute organ dysfunction, such as renal or respiratory failure Documentation should indicate the association between the sepsis and the organ dysfunction Septic Shock Severe sepsis with associated with circulatory failure, evidenced by hypotension and hypoperfusion Based on the above information and the recognized standard for sepsis, could you please clarify in the Progress Notes if this diagnoses is still accurate and reflective of the patient's condition to ensure quality of the medical record. Severe sepsis with septic shock Septic shock, treat, rule out * Other (please specify) * Unable to determine Use of terms such as suspected, likely, concern for, or probable (associated with a specific diagnosis that is being evaluated, monitored, or treated as if it exists) are acceptable and can be coded in the inpatient setting, when documented at the time of discharge. Thank you, Mindy Martin [facility] [place] Extension: [phone] Please use your independent medical judgment in providing your response. THIS QUERY IS PART OF THE PERMANENT MEDICAL RECORD
[2021-06-09] MEDS: Pantoprazole Sodium 40 MG/10 ML VIAL IVPUSH (06:32)
[2021-06-09 07:11] LABS: Glucose, Whole Blood 100 mg/dL (60-115)
[2021-06-09 07:16] LABS: Reflex Lactate? Lactic Acid Added
--- NOTE | 2021-06-09 07:56 | PM.SEPSNOTAC ---
Sepsis Bolus Exclusion Sepsis Bolus Exclusion CHF/Renal Failure This patient met severe sepsis criteria due to the following condition(s):: Hypotension, Lactate>=4mmol/L and Documentation of septic shock In my clinical judgement the administration of 30 ml/kg of crystalloid would be detrimental to this patient due to the patient's following conditions:: NYHA class III or IV Heart Failure(symptoms with low exertion or rest) and Stage III or IV Chronic Kidney Disease (GFR<30) Replace the 30 mls/kg with: Crystalloids amount given in mls:: 2,000 Colloids amount given in mls:: 0
[2021-06-09 08:07] LABS: ~Lactic Acid-LAB USE ONLY 12.7 mmol/L (0.5-2.0)
[2021-06-09 09:10] LABS: Glucose, Whole Blood 54 mg/dL (60-115)
[2021-06-09 09:35] LABS: Cancel Lactic Acid Canceled
[2021-06-09 09:56] LABS: Glucose, Whole Blood 88 mg/dL (60-115)
--- NOTE | 2021-06-09 10:29 | MHC.CM.PN ---
pt is in the icu - intubated, vented and sedated. hcp is on file -emr. dc plan deferred to a future time. cm to cont. to follow.
[2021-06-09 11:08] LABS: Glucose, Whole Blood 59 mg/dL (60-115)
[2021-06-09 11:47] LABS: Glucose, Whole Blood 78 mg/dL (60-115)
--- NOTE | 2021-06-09 12:13 | MHC.CLN ---
NUTRITION PATIENT IS NPO, INTUBATED, SEDATED. HAS OGT. DX SEPSIS. MEDICAL HX INCLUDES HEART FAILURE, CKD, CIRRHOSIS OF LIVER, CLL AND RECEIVING ORAL CHEMOTHERAPY. IF TUBE FEEDING TO BE INITIATED, RD RECOMMENDS JEVITY 1.0 AT MAX GOAL RATE OF 70 ML/HOUR TO PROVIDE 1680 ML FORMULA, 1780 KCAL (24.5 KCAL/KG IBW), 74 G PROTEIN (1.02 G/KG IBW), 1403 ML FREE WATER FROM FORMULA. MONITOR FOR DIET ADVANCEMENT, TUBE FEED TOLERANCE.
--- NOTE | 2021-06-09 12:32 | PC.NURSE ---
Addendum entered by Len Mars RN 06/09/21 17:38: 1705 pt went asystolic, notified. [facility] called again denied both tissue and organ donation. Family at bedside at this time. Addendum entered by Len Mars RN 06/09/21 15:44: a total of 2.25 bags of 5x strength phenylephrine were given and were D/C at 1530 as well. Pharmacy did not resolve scanning issue. 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 All medications have been d/c at 1530 except for fentanyl drip which is at 50mcg/hr at this time. Pt is resting comfortably in bed with family at bedside. Addendum entered by Len Mars RN 06/09/21 14:49: [facility] organ bank called for referal, spoke to efrem referal number [phone], denied organ donation. States to call back when/if asytolic for potential tissue donation. Addendum entered by Len Mars RN 06/09/21 14:25: Blood sugar 38 mg/dL, 25g IVP d50% given, aware. Crits noted per Lab Lactic 16.6 K 6.2, bicarb 6, Creat. 4.78, glucose 47, MD aware.. Bicarb drip in d5w started at 1300. Original Note: Pt intubated sedated on midazolam reduced to 2mg/hr 2/2 hypotension 68/40 start of shift. Cardizem drip titrated down and off at this time, afib 60-70bpm BP 93/46, CVP 3. Vasopressin increased to 0.06mcg/hr 2/2 hypotension Now on 5x strength Phenylephrine at max 6mcg/kg/min to reduce frequency of IVF running out (these were unable to scan started at 0815 working with pharmacy to resolve. Insulin drip turned off at 0700 for BS of 100, recheck 54 25 G d50% given IVP recheck 30min later 88, 1hr later POC glucose 59, 25G D50% given IVP recheck 30min later POC gluocse 78, MD aware. Pt's and son in today and MD spoke with them, code status now DNR. MD Winter spoke to them about pt's condition and offered option of CONTRACT CLERK status. Pt continues on pressures at this time and remains DNR at this time. Pt on ACVC rate 22 (actual RR 22), Vt 550, Ve 12.3, PEEP 5, FiO2 50%, ETCO2 21, SaO2 91-95%, lungs exp rhonchi throughout. No inline suction secretions noted. Pt urine output roughly 4ml/hr, norris in place. Pt lactic up to 12.7, has received x4 AMP 50meQ 8.4% sodium bicarb this far. Temp up to 102.7, down to 102.2 at this time with ice packing. Comfort cart offered to pt's and son at this time, declined. Bed locked and in lowest position.
[2021-06-09] MEDS: Sodium Bicarbonate 8.4% 100 MEQ in Dextrose 5 % 900 ML IV (12:56)
[2021-06-09 13:09] LABS: Glucose, Whole Blood 74 mg/dL (60-115)
[2021-06-09 13:45] LABS: VBG Base Excess -26.5 mmol/L; VBG HCO3 5 mmol/L (22-26); VBG pCO2 30 mmHg; VBG pH 6.86 (7.32-7.43); VBG pO2 40 mmHg
[2021-06-09 13:51] LABS: Hemoglobin 10.2 g/dl (14.0-18.0); Mean Corpuscular HGB Conc 30.9 g/dl (31.0-36.0); Mean Corpuscular Hemoglobin 31.6 pg (27.0-33.0); Mean Corpuscular Volume 102.2 fL (80-98); Mean Platelet Volume 12.8 fL (9.4-12.4); NRBC Pct Auto 0.5 /100WBC (0.0-0.2); Platelet Count 106 X10*3/uL (160-400); Red Blood Count 3.23 X10*6/uL (4.60-5.80)
[2021-06-09 13:54] LABS: WBC ABN SCTR FOR CBC 1
[2021-06-09 14:06] LABS: Glucose, Whole Blood 38 mg/dL (60-115)
[2021-06-09 14:09] LABS: Venous Blood Gas Refer to POC result
[2021-06-09] MEDS: Midazolam HCl/NS 50 MG/50 ML PLAST..BAG IVCONT (14:15)
[2021-06-09 14:19] LABS: Band Neutrophils Percent 15 % (3-5); Lymphocytes Percent Manual 69 % (20-40); Metamyelocytes Percent 1 %; Monocytes Percent Manual 12 % (2-11); Neutrophils Percent Manual 3 % (45-73); Nucleated Red Blood Cells 2 /100WBC (0-0)
[2021-06-09 14:21] LABS: Burr Cells 3+ (>5) /OIF; Toxic Vacuolation PRESENT
[2021-06-09 14:22] LABS: Acanthocytes 2+ (3-5) /OIF; Ovalocytes 1+ (5-14) /OIF; Platelet Estimate DECREASED (NORMAL); Platelet Morphology Comment NORMAL; RBC Morphology NOTED; Spherocytes 1+ (0-2) /OIF
[2021-06-09 14:23] LABS: Lymphocytes Absolute Manual 14.1 X10*3/uL (0.6-4.8); Metamyelocytes Absolute 0.2 X10*3/uL; Monocytes Absolute Manual 2.5 X10*3/uL (0.0-1.2); Neutrophils Absolute Manual 3.7 X10*3/uL (2.2-7.9); White Blood Count 20.5 X10*3/uL (4.8-10.8)
[2021-06-09 14:28] LABS: Anion Gap 32 (12-20); Blood Urea Nitrogen 60 mg/dL (9-16); Carbon Dioxide 6 mmol/L (22-29); Chloride 111 mmol/L (96-108); Creatinine Clr Calc Pharmacy 15.6; Estimated Glomerular Filt Rate 12; Glucose Random 47 mg/dL (60-115); Lactic Acid 16.6 mmol/L (0.5-2.0); Potassium 6.2 mmol/L (3.3-5.1); Sodium 143 mmol/L (135-145)
[2021-06-09 14:47] LABS: Glucose, Whole Blood 97 mg/dL (60-115)
[2021-06-09] MEDS: fentaNYL citrate/NS 1,000 MCG/100 ML PLAST..BAG 2.5 MCG IVCONT (15:20)
[2021-06-09 15:44] LABS: Reflex Lactate? Lactic Acid Added
[2021-06-09 15:50] LABS: Cancel Lactic Acid Canceled
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
--- NOTE | 2021-07-20 12:45 | P.CDIR_ITS ---
Retrospective Query PHYSICIAN'S DOCUMENTATION REQUEST Date of Query: 07/20/21 1245 Patient Name: Nathan Govea Admit Date: 06/08/21 Dear Doctor, A review of the medical record indicates additional documentation may be needed. Please review below and update the documentation accordingly. Clinical Indicators: Risk Factors/Clinical Indicators/Treatments H&P: patient became severely altered with low bicarb and acidotic as per ABG. Odd behavior, delirious behavior with altered mental status and intubated for patients protection. Presents with moderate tachypnea and hyperpnea with progressive alteration of mental status. UTI/Severe Sepsis with Septic shock. Based on the above, could you clarify in the Progress Notes which, if any of the following, is the most likely etiology of the confusion/altered mental status? * Encephalopathy - indicate type such as metabolic, toxic, septic, hypertensive, etc. * Acute delirium - indicate known or suspected etiology such as sepsis or due to narcotics or other drugs, etiology * Other * Unable to determine Use of terms such as suspected, likely, concern for, or probable (associated with a specific diagnosis that is being evaluated, monitored, or treated as if it exists) are acceptable and can be coded in the inpatient setting, when documented at the time of discharge. Thank you, Mindy Martin [facility], CDIS Extension: [phone] Please use your independent medical judgment in providing your response. THIS QUERY IS PART OF THE PERMANENT MEDICAL RECORD
== END 2021-06-09 17:55 | disposition expired | DRG 871 ==
LOC: HO.ED 12:08 → HO.EDOVER 17:07 → HO.ICU 17:07
PROVIDERS: Physician Assistant; Admitting Provider Internal Medicine Cardiovascular Disease; Emergency Provider Emergency Medicine Emergency Medical Services; PCP Internal Medicine; Visit Provider Internal Medicine Cardiovascular Disease
DX: A41.50 Gram-negative sepsis, unspecified (principal); I50.21 Acute systolic (congestive) heart failure; R65.21 Severe sepsis with septic shock; G93.41 Metabolic encephalopathy; C91.10 Chronic lymphocytic leukemia of B-cell type not having achieved remission; N39.0 Urinary tract infection, site not specified; E87.2 Acidosis; I13.0 Hypertensive heart and chronic kidney disease with heart failure and stage 1 through stage 4 chronic kidney disease, or unspecified chronic kidney disease; I42.0 Dilated cardiomyopathy; N18.4 Chronic kidney disease, stage 4 (severe); A41.9 Sepsis, unspecified organism; I48.91 Unspecified atrial fibrillation; E03.9 Hypothyroidism, unspecified; E78.5 Hyperlipidemia, unspecified; K74.60 Unspecified cirrhosis of liver; I44.0 Atrioventricular block, first degree; I44.4 Left anterior fascicular block; E11.22 Type 2 diabetes mellitus with diabetic chronic kidney disease; N18.9 Chronic kidney disease, unspecified; Z20.822 Contact with and (suspected) exposure to COVID-19; Z96.652 Presence of left artificial knee joint; Z79.4 Long term (current) use of insulin; Z79.890 Hormone replacement therapy; Z79.899 Other long term (current) drug therapy
CPT/HCPCS: 36415; 70450; 71045; 71250; 72125; 74176; 76870; 80048; 80053; 81001; 81003; 82009; 82803; 82947; 83605; 83735; 83880; 84100; 84443; 84484; 85007; 85025; 85027; 85610; 85730; 87040; 87077; 87086; 87186; 87205; 87635; 93005; 94002; 94003; 96361; 96365; 96367; 96375; 96376; 99285; 99291; J0696; J1160; J1956; J2185; J2250; J2270; J2370; J3010